=== PATIENT | female | born 1960 | race Caucasian/White ===

== ENCOUNTER → 2017-02-10 | Outpatient (CLI) | payer OTHER ==
--- NOTE | 2017-02-10 13:52 | MM ---
Reason for exam: additional evaluation requested from prior study. Last mammogram was performed 1 year ago. History: Patient is postmenopausal. Family history of breast cancer in sister at age 52. Benign US biopsy breast VAD RT of the right breast, February 19, 2016. Benign excisional biopsy of the right breast, 2015. Taking estrogen for 27 years beginning at age 30. Physical Findings: Nurse did not find any significant physical abnormalities on exam. MG Diagnostic Mammo w CAD RUDY Bilateral CC and MLO view(s) were taken. ML and XCCL view(s) were taken of the right breast. Prior study comparison: February 19, 2016, right breast MG diagnostic mammo RT wo CAD. February 07, 2016, left breast MG work up mamm w CAD LT. The breast tissue is heterogeneously dense. This may lower the sensitivity of mammography. Finding: There are typically benign round calcifications in the left breast. Asymmetric breast tissue is stable. There is no discrete abnormality. These results were verbally communicated with the patient and result sheet given to the patient on 02/10/17. ASSESSMENT: Benign, BI-RAD 2 RECOMMENDATION: Routine screening mammogram of both breasts in 1 year.
== END | disposition home or self-care (01) ==
LOC: RADMAMWWP 12:35
PROVIDERS: ATTEND Family Medicine
DX: R92.8 Other abnormal and inconclusive findings on diagnostic imaging of breast (principal)

== ENCOUNTER 2018-02-12 16:33 | Inpatient (IN) | payer OTHER ==
[2018-02-12] MEDS ORDERED: SODIUM CHLORIDE 0.9% 1,000 ML IV STA (17:06)
[2018-02-12] MEDS ORDERED: MORPHINE SULFATE 4 MG/ML SYRINGE IV STA (17:06)
[2018-02-12] MEDS ORDERED: ONDANSETRON 4 MG/2 ML VIAL IVP STA (17:06)
--- NOTE | 2018-02-12 17:24 | ED ---
Abdominal Pain HPI - General Chief Complaint: Abdominal Pain Stated Complaint: abd pain Time Seen by Provider: 02/12/18 16:57 Source: patient, family Mode of arrival: ambulatory Limitations: no limitations - History of Present Illness Initial Comments: 58-year-old female patient with past medical history significant for pancreatitis presents the emergency department today for complaints of generalized abdominal pain that radiates through to her back. Patient states that pain feels similar to when she's had pancreatitis before. Patient states she has been nauseated but has not vomited. Denies any fevers but states she has been chilled. States that she has been having diarrhea. States that she has had pain for the last 2-3 days. She describes the pain as a sharp stabbing pain. States that she has had decreased appetite and has been unable to eat or drink for the last 2-3 days as well. Patient denies any recent rash, shortness breath, chest pain, numbness, tingling, dizziness, weakness, hematuria, dysuria , urinary urgency, urinary frequency, headache, visual changes, or any other complaints. - Related Data Home Medications Medication Instructions Recorded Confirmed Estradiol [Estrace] 2 mg PO DAILY 01/03/14 02/12/18 Montelukast [Singulair] 10 mg PO HS 04/24/16 02/12/18 HYDROcodone/APAP 7.5-325MG [[place] 1 tab PO Q6HR PRN 02/12/18 02/12/18 7.5] Lisinopril [Zestril] 20 mg PO DAILY 02/12/18 02/12/18 Allergies Allergy/AdvReac Type Severity Reaction Status Date / Time amoxicillin trihydrate Allergy Nausea & Verified 02/12/18 20:38 [From Augmentin] Vomiting hydromorphone HCl Allergy Nausea & Verified 02/12/18 20:38 [From Dilaudid] Vomiting meperidine HCl [From Demerol] Allergy Nausea & Verified 02/12/18 20:38 Vomiting potassium clavulanate Allergy Nausea & Verified 02/12/18 20:38 [From Augmentin] Vomiting sulfamethoxazole Allergy Nausea & Verified 02/12/18 20:38 [From Bactrim] Vomiting trimethoprim [From Bactrim] Allergy Nausea & Verified 02/12/18 20:38 Vomiting Review of Systems ROS Statement: Those systems with pertinent positive or pertinent negative responses have been documented in the HPI. ROS Other: All systems not noted in ROS Statement are negative. Past Medical History Past Medical History: COPD, Pneumonia Additional Past Medical History / Comment(s): pancreatitis November 2013, History of Any Multi-Drug Resistant Organisms: None Reported Past Surgical History: Cholecystectomy, Hysterectomy Additional Past Surgical History / Comment(s): splenectomy Mar 1983. Reconstruction face, mouth, teeth Mar 1983. Knee Past Anesthesia/Blood Transfusion Reactions: Postoperative Nausea & Vomiting ( PONV) Additional Past Anesthesia/Blood Transfusion Reaction / Comment(s): Pt states it depends on what medications were used, varied reactions. Past Psychological History: Anxiety Smoking Status: Current every day smoker Past Alcohol Use History: Occasional Past Drug Use History: None Reported - Past Family History Mother Family Medical History: AFIB, Cancer Additional Family Medical History / Comment(s): spondylo General Exam Limitations: no limitations General appearance: alert, in no apparent distress, other (This is a thin appearing adult female patient in mild distress related to pain. Vital signs upon presentation are temperature 98.4F, pulse 97, respirations 18, blood pressure 148/95, pulse ox 97% on room air.) Eye exam: Present: normal appearance, PERRL, EOMI. Absent: scleral icterus, conjunctival injection, periorbital swelling ENT exam: Present: normal exam, normal oropharynx, mucous membranes moist Respiratory exam: Present: normal lung sounds bilaterally. Absent: respiratory distress, wheezes, rales, rhonchi, stridor Cardiovascular Exam: Present: regular rate, normal rhythm, normal heart sounds. Absent: systolic murmur, diastolic murmur, rubs, gallop, clicks GI/Abdominal exam: Present: soft, tenderness (Exquisite tenderness to the midepigastric region; Generalized abdominal tenderness.), normal bowel sounds. Absent: distended, guarding, rebound, rigid Neurological exam: Present: alert, oriented X3, CN II-XII intact Psychiatric exam: Present: normal affect, normal mood Skin exam: Present: warm, dry, intact, normal color. Absent: rash Course Vital Signs 02/12/18 02/12/18 16:42 19:52 Temperature 98.4 F 98.2 F Pulse Rate 97 95 Respiratory 18 18 Rate Blood Pressure 148/95 139/77 O2 Sat by Pulse 97 97 Oximetry Medical Decision Making - Medical Decision Making 58-year-old female patient presented to the emergency department for evaluation of increased abdominal pain and nausea. Physical examination did reveal upper abdominal tenderness. Labs reviewed and did reveal an elevated amylase of 268 and lipase of 1163. Other labs are unremarkable. Patient was given IV fluid bolus. She'll be admitted to the hospital pain management and IV hydration. We did consult gastroenterology and ordered ultrasound of the abdomen. Did discuss the case with Priscilla Mccloud for Dr. Caceres. - Lab Data Result diagrams: 02/12/18 17:22 02/12/18 17:22 Lab Results 02/12/18 02/12/18 02/12/18 Range/Units 17:22 17:22 17:22 WBC 10.5 (3.8-10.6) k/uL RBC 4.21 (3.80-5.40) m/uL Hgb 14.2 (11.4-16.0) gm/dL Hct 42.4 (34.0-46.0) % MCV 100.8 H (80.0-100.0) fL MCH 33.8 (25.0-35.0) pg MCHC 33.6 (31.0-37.0) g/dL RDW 12.7 (11.5-15.5) % Plt Count 320 (150-450) k/uL Neutrophils % 76 % Lymphocytes % 16 % Monocytes % 5 % Eosinophils % 1 % Basophils % 0 % Neutrophils # 8.0 H (1.3-7.7) k/uL Lymphocytes # 1.7 (1.0-4.8) k/uL Monocytes # 0.5 (0-1.0) k/uL Eosinophils # 0.1 (0-0.7) k/uL Basophils # 0.0 (0-0.2) k/uL Sodium 130 L (137-145) mmol/L Potassium 5.2 H (3.5-5.1) mmol/L Chloride 99 (98-107) mmol/L Carbon Dioxide 24 (22-30) mmol/L Anion Gap 7 mmol/L BUN 8 (7-17) mg/dL Creatinine 0.50 L (0.52-1.04) mg/dL Est GFR (CKD-EPI)AfAm >90 (>60 ml/min/1.73 sqM) Est GFR (CKD-EPI)NonAf >90 (>60 ml/min/1.73 sqM) Glucose 94 (74-99) mg/dL Plasma Lactic Acid Pantera (0.7-2.0) mmol/L Calcium 8.7 (8.4-10.2) mg/dL Total Bilirubin 1.1 (0.2-1.3) mg/dL AST 38 H (14-36) U/L ALT 26 (9-52) U/L Alkaline Phosphatase 49 (38-126) U/L Total Creatine Kinase 85 (30-135) U/L CK-MB (CK-2) 1.5 (0.0-2.4) ng/mL CK-MB (CK-2) Rel Index 1.8 Troponin I <0.012 (0.000-0.034) ng/mL Total Protein 6.3 (6.3-8.2) g/dL Albumin 3.8 (3.5-5.0) g/dL Amylase 268 H (30-110) U/L Lipase 1163 H (23-300) U/L Urine Color Urine Appearance (Clear) Urine pH (5.0-8.0) Ur Specific [place] (1.001-1.035) Urine Protein (Negative) Urine Glucose (UA) (Negative) Urine Ketones (Negative) Urine Blood (Negative) Urine Nitrite (Negative) Urine Bilirubin (Negative) Urine Urobilinogen (<2.0) mg/dL Ur Leukocyte Esterase (Negative) Urine RBC (0-5) /hpf Urine WBC (0-5) /hpf Ur Squamous Epith Cells (0-4) /hpf Urine Mucus (None) /hpf 02/12/18 02/12/18 Range/Units 17:22 17:22 WBC (3.8-10.6) k/uL RBC (3.80-5.40) m/uL Hgb (11.4-16.0) gm/dL Hct (34.0-46.0) % MCV (80.0-100.0) fL MCH (25.0-35.0) pg MCHC (31.0-37.0) g/dL RDW (11.5-15.5) % Plt Count (150-450) k/uL Neutrophils % % Lymphocytes % % Monocytes % % Eosinophils % % Basophils % % Neutrophils # (1.3-7.7) k/uL Lymphocytes # (1.0-4.8) k/uL Monocytes # (0-1.0) k/uL Eosinophils # (0-0.7) k/uL Basophils # (0-0.2) k/uL Sodium (137-145) mmol/L Potassium (3.5-5.1) mmol/L Chloride (98-107) mmol/L Carbon Dioxide (22-30) mmol/L Anion Gap mmol/L BUN (7-17) mg/dL Creatinine (0.52-1.04) mg/dL Est GFR (CKD-EPI)AfAm (>60 ml/min/1.73 sqM) Est GFR (CKD-EPI)NonAf (>60 ml/min/1.73 sqM) Glucose (74-99) mg/dL Plasma Lactic Acid Pantera 1.1 (0.7-2.0) mmol/L Calcium (8.4-10.2) mg/dL Total Bilirubin (0.2-1.3) mg/dL AST (14-36) U/L ALT (9-52) U/L Alkaline Phosphatase (38-126) U/L Total Creatine Kinase (30-135) U/L CK-MB (CK-2) (0.0-2.4) ng/mL CK-MB (CK-2) Rel Index Troponin I (0.000-0.034) ng/mL Total Protein (6.3-8.2) g/dL Albumin (3.5-5.0) g/dL Amylase (30-110) U/L Lipase (23-300) U/L Urine Color Yellow Urine Appearance Cloudy H (Clear) Urine pH 5.5 (5.0-8.0) Ur Specific [place] 1.021 (1.001-1.035) Urine Protein Trace H (Negative) Urine Glucose (UA) Negative (Negative) Urine Ketones 2+ H (Negative) Urine Blood Moderate H (Negative) Urine Nitrite Negative (Negative) Urine Bilirubin Negative (Negative) Urine Urobilinogen <2.0 (<2.0) mg/dL Ur Leukocyte Esterase Negative (Negative) Urine RBC 5 (0-5) /hpf Urine WBC 1 (0-5) /hpf Ur Squamous Epith Cells 7 H (0-4) /hpf Urine Mucus Rare H (None) /hpf - EKG Data -: EKG Interpreted by [place] EKG Comments: EKG obtained at 1733 shows sinus rhythm with sinus arrhythmia and a short KS interval. Ventricular rate of 61, KS interval is 102, QRS duration 86, QT 422, QTc 424. No evidence of ST elevation or depression. - Radiology Data Radiology results: report reviewed, image reviewed KUB x-ray of the abdomen is obtained, report was reviewed in its entirety. Impression by Dr. Hinojosa shows nonacute abdomen no change. Abdominal ultrasound was obtained. Report was reviewed in its entirety. Impression by Dr. Hinojosa shows cholecystectomy no dilated ducts. Report as read that there is an abnormally dilated pancreatic duct of 4.3 mm. Disposition Clinical Impression: Pancreatitis Disposition: ADMITTED IP TO THIS [facility] Condition: Serious Decision to Admit Reason: Admit from EC Decision Date: 02/12/18 Decision Time: 19:28
[2018-02-12 17:44] LABS: Basophils % (A) 0 %; Eosinophils # (A) 0.1 k/uL (0-0.7); Eosinophils % (A) 1 %; HCT 42.4 % (34.0-46.0); HGB 14.2 gm/dL (11.4-16.0); Lymphocytes # (A) 1.7 k/uL (1.0-4.8); Lymphocytes % (A) 16 %; MCH 33.8 pg (25.0-35.0); MCHC 33.6 g/dL (31.0-37.0); MCV 100.8 fL (80.0-100.0); Monocytes # (A) 0.5 k/uL (0-1.0); Monocytes % (A) 5 %; Neutrophils % (A) 76 %; Platelet Count 320 k/uL (150-450); RBC 4.21 m/uL (3.80-5.40); RDW 12.7 % (11.5-15.5); WBC 10.5 k/uL (3.8-10.6)
[2018-02-12 17:48] LABS: Appearance,Urine Cloudy (Clear); Bilirubin,Urine Negative (Negative); Blood,Urine Moderate (Negative); Color,Urine Yellow; Glucose,Urine (UA) Negative (Negative); Ketones,Urine 2+ (Negative); Leukocyte Esterase,Urine Negative (Negative); Mucus,Urine Rare /hpf; Nitrite,Urine Negative (Negative); PH, Urine 5.5 (5.0-8.0); Protein,Urine Trace (Negative); RBC,Urine 5 /hpf (0-5); Specific Gravity,Urine 1.021 (1.001-1.035); Squamous Epithelial Cell,Urine 7 /hpf (0-4); Urobilinogen,Urine <2.0 mg/dL (<2.0); WBC,Urine 1 /hpf (0-5)
[2018-02-12 17:57] LABS: ALT 26 U/L (9-52); AST 38 U/L (14-36); Albumin 3.8 g/dL (3.5-5.0); Alkaline Phosphatase 49 U/L (38-126); Amylase 268 U/L (30-110); Anion Gap 7 mmol/L; Blood Urea Nitrogen 8 mg/dL (7-17); Calcium 8.7 mg/dL (8.4-10.2); Carbon Dioxide 24 mmol/L (22-30); Chloride 99 mmol/L (98-107); Glucose 94 mg/dL (74-99); Lipase 1163 U/L (23-300); Potassium 5.2 mmol/L (3.5-5.1); Sodium 130 mmol/L (137-145); Total Bilirubin 1.1 mg/dL (0.2-1.3); Total Protein 6.3 g/dL (6.3-8.2)
[2018-02-12 18:07] LABS: Creatine Kinase 85 U/L (30-135)
--- NOTE | 2018-02-12 18:12 | XR ---
EXAMINATION TYPE: XR KUB DATE OF EXAM: 02/12/2018 COMPARISON: 01/03/2014 HISTORY: Abdominal pain TECHNIQUE: Single view FINDINGS: There is no sign of intestinal obstruction or pneumoperitoneum. There are clips from cholec ystectomy. Lung bases are clear. Fecal pattern is normal. There are no pathologic calcifications over the kidneys. IMPRESSION: Nonacute abdomen. No change.
[2018-02-12] MEDS ORDERED: MORPHINE SULFATE 4 MG/ML SYRINGE IVP STA (18:19)
[2018-02-12 18:20] LABS: Creatine Kinase MB 1.5 ng/mL (0.0-2.4); Troponin I <0.012 ng/mL (0.000-0.034)
[2018-02-12] MEDS ORDERED: NALOXONE 0.4 MG/ML 1 ML VIAL IV PRN (19:22)
[2018-02-12] MEDS ORDERED: MORPHINE SULFATE 4 MG/ML SYRINGE IV PRN (19:22)
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
[2018-02-12 20:37] VITALS: BMI 12.9
[2018-02-12] MEDS: SODIUM CHLORIDE 0.9% 1,000 ML IV SCH (21:28)
[2018-02-12] MEDS ORDERED: ALPRAZolam 0.25 MG TAB PO PRN (22:30)
[2018-02-12] MEDS ORDERED: TEMAZEPAM 15 MG CAP PO PRN (22:30)
[2018-02-12] MEDS ORDERED: LORazepam 0.5 MG TAB PO PRN (22:31)
[2018-02-12] MEDS: HYDROcodone/APAP 7.5-325MG 1 EACH TAB PO PRN (23:06)
[2018-02-12] MEDS: PANTOPRAZOLE 40 MG/10 ML VIAL IVP SCH (23:06)
--- NOTE | 2018-02-12 23:48 | HP ---
HISTORY AND PHYSICAL DATE OF SERVICE: 02/12/2018 I am covering for Dr. Degroot. CHIEF COMPLAINT: Abdominal pain. HISTORY OF PRESENT ILLNESS: This 58-year-old woman with a past medical history of multiple medical problems, including COPD, hypertension, pneumonia, history of pancreatitis, cholecystectomy, anxiety, previous history EtOH and smoking, being followed by Dr. Degroot in the outpatient setting, is complaining of abdominal pain for the last several weeks. The abdominal pain is felt in the anterior part of the abdomen and also the circumference and the upper part of the abdomen and because of lack of improvement, the patient came to [facility] and was admitted for further evaluation and treatment. The patient has some nausea. The patient also had loss of weight which most recently is about 10 pounds in the last few weeks. The pain is also sharp in character. The lab values showed amylase of 260 and lipase of 1163 and abdominal ultrasound was also done which showed cholecystectomy and no other abnormalities. During the previous admission, the patient was also evaluated. There is no history of fever, rigors. No history of headache, loss of consciousness, seizures. PAST MEDICAL HISTORY: History of COPD, hypertension, pneumonia, history of pancreatitis, history of cholecystectomy, hysterectomy, splenectomy. MEDICATIONS PRIOR TO ADMISSION: Include home medications are: 1. Zestril 20 mg p.o. daily. 2. Hydrocodone 7 5 mg every 6 hours p.r.n. 3. Estrace 2 mg p.o. daily. 4. Singular 10 mg q.h.s. ALLERGIES: Are AMOXICILLIN, HYDROMORPHONE, POTASSIUM, BACTRIM. FAMILY HISTORY: History of A. fib., cancer, spondylosis. SOCIAL HISTORY: History of alcohol, history of smoking. REVIEW OF SYSTEMS: ENT: No diminished hearing, diminished vision. CARDIOVASCULAR: No angina, palpitations. RESPIRATORY: As mentioned earlier. GI: No nausea or vomiting. : No dysuria. NERVOUS: No numbness or weakness. ALLERGY/IMMUNOLOGY: No asthma or hay fever. MUSCULOSKELETAL: As mentioned earlier. HEMATOLOGY/ONCOLOGY: No history of anemia. ENDOCRINE: No history of diabetes, hypothyroidism. CONSTITUTIONAL: As mentioned earlier. DERMATOLOGY: Negative. RHEUMATOLOGY: Negative. PSYCHIATRY: As mentioned earlier. PHYSICAL EXAMINATION: Alert and oriented x3. Pulse is 95, blood pressure 139/77, respirations 18, temperature 98.2, pulse ox 97% on room air. HEENT: Conjunctivae normal. Oral mucosa moist. NECK: No jugular venous distention. No carotid bruits. No lymph node enlargement. CARDIOVASCULAR: S1, S2 muffled. No S3, S4.. RESPIRATORY: Breath sounds diminished in the bases. A few scattered rhonchi. No crackles. ABDOMEN: Soft, mild diffuse tenderness, scaphoid. No guarding. No rigidity. No mass palpable. LEGS: No edema. No swelling. NERVOUS SYSTEM: Higher functions as mentioned earlier. Moves all 4 limbs. No focal motor or sensory deficits. LYMPHATIC: No lymphadenopathy in neck or axillae. SKIN: No ulcer, rash or bleeding. JOINTS: No active deforming arthropathy. LABS: WBC 10.2, hemoglobin is 14.1. Sodium 130, potassium 5.2. Amylase, noted. ASSESSMENT: 1. Acute severe pancreatitis, severe abdominal pain. 2. History of recurrent pancreatitis. 3. History nicotine dependence. 4. Mild hyponatremia. 5. Mild hyperkalemia. 6. History of weight loss for evaluation. 7. Chronic obstructive pulmonary disease. 8. Hypertension. 9. History of pneumonia. 10.History of hysterectomy. 11.History of cholecystectomy. 12.History of anxiety. RECOMMENDATIONS AND DISCUSSION: In this is a 58-year-old woman who presented with multiple complex medical issues, we will monitor the patient closely. Continue the current medical management and continue symptomatic treatment. Otherwise, keep the patient n.p.o. Repeat labs, pain medications and Gastroenterology has been consulted. I would also recommend a CT scan of the abdomen pelvis and chest also to evaluate for any underlying cause of weight loss as well as to evaluate the pancreatitis. The prognosis guarded because of multiple complex medical issues. Further recommendations to follow. MMODL / IJN: [id number] / [facility]
[2018-02-13] MEDS: MORPHINE SULFATE 4 MG/ML SYRINGE IV PRN ×7 (00:37→21:03)
[2018-02-13] MEDS: SODIUM CHLORIDE 0.9% 1,000 ML IV SCH ×3 (04:05→18:02)
[2018-02-13] MEDS: HYDROcodone/APAP 7.5-325MG 1 EACH TAB PO PRN ×3 (06:11→22:17)
[2018-02-13 06:41] LABS: ALT 57 U/L (9-52); AST 106 U/L (14-36); Albumin 2.5 g/dL (3.5-5.0); Alkaline Phosphatase 65 U/L (38-126); Amylase 198 U/L (30-110); Anion Gap 1 mmol/L; Basophils % (A) 0 %; Blood Urea Nitrogen 6 mg/dL (7-17); Calcium 7.6 mg/dL (8.4-10.2); Carbon Dioxide 24 mmol/L (22-30); Chloride 108 mmol/L (98-107); Eosinophils # (A) 0.1 k/uL (0-0.7); Eosinophils % (A) 1 %; Glucose 73 mg/dL (74-99); HCT 37.3 % (34.0-46.0); HGB 11.9 gm/dL (11.4-16.0); Lipase 659 U/L (23-300); Lymphocytes # (A) 1.2 k/uL (1.0-4.8); Lymphocytes % (A) 11 %; MCH 33.5 pg (25.0-35.0); MCV 104.8 fL (80.0-100.0); Macrocytosis Slight; Mean Platelet Volume 6.7; Monocytes # (A) 0.5 k/uL (0-1.0); Monocytes % (A) 4 %; Neutrophils # (A) 8.9 k/uL (1.3-7.7); Neutrophils % (A) 83 %; Platelet Count 273 k/uL (150-450); Potassium 4.1 mmol/L (3.5-5.1); RBC 3.56 m/uL (3.80-5.40); Sodium 133 mmol/L (137-145); Total Bilirubin 0.4 mg/dL (0.2-1.3); Total Protein 4.4 g/dL (6.3-8.2); WBC 10.8 k/uL (3.8-10.6)
[2018-02-13] MEDS: IOPAMIDOL-300 CONTRAST 30 ML VIAL (ORAL USE) PO PRN ×2 (08:01→09:06)
[2018-02-13] MEDS: ONDANSETRON 4 MG/2 ML VIAL IVP PRN ×2 (08:50→21:08)
[2018-02-13] MEDS: PANTOPRAZOLE 40 MG/10 ML VIAL IVP SCH ×2 (10:06→20:40)
--- NOTE | 2018-02-13 10:57 | CT ---
EXAMINATION TYPE: CT ChestAbdPelvis wo con DATE OF EXAM: 02/13/2018 COMPARISON: Previous CT scan of the chest dated 09/20/[address] scan of the abdomen and p zana dated 01/03/2014. HISTORY: Pancreatitis, wt loss CT DLP: 193 mGycm Automated exposure control for dose reduction was used. TECHNIQUE: Helical acquisition through the abdomen and pelvis was obtained without oral contrast but following the intravenous administration of mL of . The data was formatted in the axial, coronal and sagittal projections. FINDINGS: There are diffuse emphysematous changes. A 6 mm groundglass nodule seen on the previous exa mination now measures 2.2 cm. Spiculated opacity in the left apex previously measured 2.1 cm and toda y measures 2.9 cm. There is a 6 mm groundglass nodule in the lateral aspect of the right middle lobe, best seen on image 29. There is a 2 mm nodule in the posterior basal segment of the right lower lobe , best seen on image 48 no other definite lung nodules are seen. There is no significant axillary, internal mammary or hilar adenopathy. There is an 8 mm lymph node i n the pretracheal region. There is no pleural or pericardial fluid. The heart is not enlarged. Within the abdomen, the gallbladder is been removed. The liver is unremarkable. The spleen is unremar kable. Limited views the adrenal glands appear normal. There is no evidence of hydronephrosis or nephrolithiasis. The head and proximal body of the pancreas is not well-visualized due to a paucity of retroperitoneal fat. The tail appears normal. The bladder is unremarkable. The uterus is unremarkable. The ovaries are not visualized with certainty. There is some contrast within normal-appearing small bowel loops. The colon is not opacified. The ximena endix is not visualized. No free air is seen. No definite free fluid is seen. No bony destructive lesion is seen. IMPRESSION: 1. MULTIPLE ENLARGING AND NEW PULMONARY NODULES CONSISTENT WITH NEOPLASM. 2. LIMITED EXAMINATION OF THE ABDOMEN DUE TO LACK OF CONTRAST AT A PAUCITY OF FAT. THE HEAD OF THE PA NCREAS IS POORLY VISUALIZED.
[2018-02-13] MEDS: NICOTINE 14MG/24HR PATCH TRANSDERM SCH (11:05)
[2018-02-13] MEDS: LISINOPRIL 20 MG TAB PO SCH (11:06)
[2018-02-13] MEDS: HEPARIN SODIUM,PORCINE 5,000 UNIT/ML 1 ML VIAL SQ SCH ×2 (11:09→20:40)
--- NOTE | 2018-02-13 12:47 | XR ---
EXAMINATION TYPE: XR chest 1V portable DATE OF EXAM: 02/13/2018 HISTORY: nodules. REFERENCE: Previous study dated 01/05/2014. FINDINGS: The lungs are overinflated. There is a mass in the right upper lobe. Another nodule seen on CT cannot be visualized on this study. Pleural space are clear. Heart size is upper limits of normal . IMPRESSION: 1. COPD. 2. RIGHT UPPER LOBE PULMONARY NODULE.
--- NOTE | 2018-02-13 15:49 | PN ---
PROGRESS NOTE DATE OF SERVICE: 02/13/2018 I am covering for Dr. Degroot. This 58-year-old woman with a past medical history of multiple medical problems, admitted with abdominal pain suggestive of acute severe pancreatitis. The patient also had multiple nodular lesions in the chest on the CT scan. No chest pain. No palpitations. No fever. Complains of pain at this time. PHYSICAL EXAMINATION: On exam, alert and oriented x3. Pulse 59, blood pressure 114/49, respirations 20 , temperature 97 degrees, pulse ox 95% on room air. HEENT: Conjunctivae normal. Oral mucosa moist. Neck is no jugular venous distention. No carotid bruit. No lymph node enlargement. CARDIOVASCULAR: S1 and S2 muffled. No S3, no S4. RESPIRATORY: Breath sounds diminished at the bases. A few scattered rhonchi. ABDOMEN: Soft, mild diffuse tenderness. LEGS: No edema. No swelling. NERVOUS SYSTEM: No focal deficits. LABS: Labs are WBC 10.8, hemoglobin 11.9, sodium 133, potassium 4. Creatinine 0.49 and amylase is 198 and lipase is 659 showing diminishing trends. ASSESSMENT: 1. Acute severe pancreatitis with severe abdominal pain. 2. Multiple lung nodules on the CAT scan of the chest. 3. History of recurrent pancreatitis. 4. History of nicotine dependence. 5. Mild hyponatremia. 6. Mild hyperkalemia. 7. History of recent weight loss for evaluation. 8. Chronic obstructive pulmonary disease. 9. Hypertension. 10.History of pneumonia. 11.History of hysterectomy. 12.History of cholecystectomy. 13.History of anxiety. 14.Severe protein calorie malnutrition. RECOMMENDATIONS AND DISCUSSION: This 58-year-old woman who presented with multiple complex medical issues. Will monitor the patient closely. Continue the current medications and symptomatic treatment. The patient is seen by Gastroenterology. I would recommend Pulmonary consultation with Dr. Kenryo Stephens. diet. Continue symptomatic treatment. Prognosis guarded because of multiple complex medical issues. Further recommendations to follow. MMODL / IJN: [id number] / [facility]
[2018-02-13] MEDS: MONTELUKAST 10 MG TAB PO SCH (20:41)
[2018-02-14] MEDS: MORPHINE SULFATE 4 MG/ML SYRINGE IV PRN ×4 (01:32→21:53)
[2018-02-14] MEDS: SODIUM CHLORIDE 0.9% 1,000 ML IV SCH ×3 (01:40→19:58)
[2018-02-14] MEDS: HYDROcodone/APAP 7.5-325MG 1 EACH TAB PO PRN ×3 (05:08→18:49)
[2018-02-14] MEDS: PANTOPRAZOLE 40 MG/10 ML VIAL IVP SCH ×2 (08:58→21:53)
[2018-02-14] MEDS: NICOTINE 14MG/24HR PATCH TRANSDERM SCH (09:02)
[2018-02-14] MEDS: HEPARIN SODIUM,PORCINE 5,000 UNIT/ML 1 ML VIAL SQ SCH ×2 (09:50→21:53)
[2018-02-14] MEDS: LISINOPRIL 20 MG TAB PO SCH (09:51)
--- NOTE | 2018-02-14 16:08 | PN ---
PROGRESS NOTE DATE OF SERVICE: 02/14/2018. INTERVAL HISTORY: This 58-year-old woman was admitted with acute severe pancreatitis. Abdominal pain is improving significantly. No chest pain. No palpitations. No fever. A CT scan of the abdomen and pelvis was noted. The nodular changes are rather chronic per pulmonary. No chest pain. No palpitations. No fever. EXAM: Alert, oriented x3. Pulse 60, blood pressure 105/58, respirations 16, temperature 97 degrees, pulse ox 100% on room air. HEENT: Conjunctivae normal. NECK: No jugular venous distention. CARDIOVASCULAR: S1, S2. RESPIRATORY: Breath sounds diminished in the bases. No rhonchi, no crackles. ABDOMEN: Soft, mild diffuse discomfort. Otherwise no tenderness, no guarding, no mass palpable. LEGS: No edema. NERVOUS SYSTEM: No focal deficits. LAB STUDIES: WBC 11.1, hemoglobin 11.9, sodium 130, potassium 4.9. Amylase 198, lipase 659. ASSESSMENT: 1. Acute severe pancreatitis with severe abdominal pain. 2. Multiple lung nodules in the CT scan chest. 3. History of recurrent pancreatitis. 4. History of nicotine dependence. 5. Mild hyponatremia. 6. Mild hyperkalemia. 7. History of recent weight loss for evaluation. 8. Chronic obstructive pulmonary disease. 9. Hypertension. 10.History of pneumonia. 11.History of hysterectomy. 12.History of cholecystectomy. 13.History of anxiety. 14.Severe protein calorie malnutrition. RECOMMENDATIONS AND DISCUSSION: I recommend to continue current medication and continue with symptomatic treatment. Otherwise at this time I recommend advance diet. Closely follow with Gastroenterology and Pulmonary. Continue to monitor. Prognosis guarded because of multiple complex medical issues. Further recommendations to follow. See orders for details. MMODL / IJN: [id number] /
--- NOTE | 2018-02-14 19:29 | CONS ---
CONSULTATION Rozina Alcantara is a 58-year-old female who presented to the ED with abdominal pain. This has been associated with some nausea but no vomiting. She also had been having some diarrhea. She was seen in the ED and thought to have pancreatitis and was admitted for further evaluation. She had a CT scan of the chest, which showed evidence of lung nodules and a pulmonary consultation was placed. The patient denies any shortness of breath at this time. She denies any hemoptysis or recent weight loss. PAST MEDICAL HISTORY: Positive for pancreatitis, COPD, previous pneumonia, history of hysterectomy, splenectomy in 1982, history of reconstruction of her face, mouth and teeth in March of 1983, history of lung nodules seen in 2012, which had not changed by 2014. Subsequently, CT scan had been pending. FAMILY HISTORY: Positive for atrial fibrillation and cancer in her mother. SOCIAL HISTORY: The patient drinks alcohol occasionally. Has not been drinking recently. She is a current every day smoker. ALLERGIC: To DILAUDID, AUGMENTIN, MEPERIDINE, AND BACTRIM. MEDICATIONS: Prior to admission were Xanax, Estrace, heparin, Fleischmanns, Zestril, Ativan, Singulair, morphine sulfate, Narcan, Habitrol, Zofran, Protonix, and Restoril. REVIEW OF SYSTEMS: Noncontributory. PHYSICAL EXAMINATION: Respiratory rate is 16, pulse rate of 60, temperature 97, blood pressure 106/80 over 63, O2 saturation on room air is 98%. HEENT reveals pupils that are equal. No jugular venous distention. Chest is clear. Cardiovascular system reveals S1, S2. Abdomen is soft. There is no pedal edema. CT scan of the chest, abdomen and pelvis was done. CT scan of the chest showed diffuse emphysematous changes, 6 mm nodule seen previously in the right apex has grown to 2.2 cm, spiculated opacity in the left apex has gotten 2.1 to 2.9, 6 mm nodule in the lateral aspect of the right middle lobe is seen and a 2 mm nodule in the posterior basal segment of the right lower lobe. No significant adenopathy except for an 8 mm lymph node in the pretracheal area. LABS: Reveals white count of 10.8, hemoglobin of 11.9, sodium 133, potassium 4.1, chloride 108, bicarb 24, amylase of 1163, lipase of 268. IMPRESSION: At this time: 1. Acute pancreatitis. 2. Multiple lung nodules that are bilateral that were previously seen at least in 2013 with enlargement over 5 years, but not over the initial 2 years. The etiology of these nodules is unclear. Given her history of smoking and emphysema would check an outpatient PET scan and decide on further workup. She is due to get a PFT as well to further decide if she is a candidate for further workup. 3. Acute pancreatitis for which she is on bowel rest. 4. Chronic obstructive pulmonary disease, which is stable. At this point in time from a pulmonary standpoint, she would need close outpatient followup with a PET scan. Depending on how she does we should make further changes to her care. She was counseled regarding her condition and this approach and has a fair understanding of our recommendations. MMODL / IJN: [id number] /
--- NOTE | 2018-02-14 21:24 | P.CONS ---
History of Present Illness - Reason for Consult Consult date: 02/13/18 Pancreatitis - History of Present Illness The patient is a 58-year-old female patient with past medical history significant for pancreatitis, presented to the emergency department for complaints of generalized abdominal pain that radiates through to her back of 2- 3 days duration. Patient stated that pain feels similar to when she's had pancreatitis before. She has been nauseated but had no vomiting. Denied any fevers but states she has been chilled. States that she has been having diarrhea. She has had decreased appetite and has been unable to eat or drink for the last 2-3 days as well. Patient denies any recent rash, shortness breath , chest pain, numbness, tingling, dizziness, weakness, hematuria, dysuria, urinary urgency, urinary frequency, headache, visual changes, or any other complaints. Review of Systems Constitutional: Denied fever, chills or unintentional weight loss Neurologic: No headaches, double vision or other sensory or motor changes Cardiopulmonary: No chest pains, shortness of breath or palpitations Gastrointestinal: See present illness above Genitourinary: No hematuria, dysuria or frequency Musculoskeletal: No joint complaints or swelling Skin: No rashes Endocrine: No history of diabetes or thyroid disease Hematologic: No history of anemia or bleeding tendency Psychiatric: No anxiety or depression Past Medical History Past Medical History: COPD, Pneumonia Additional Past Medical History / Comment(s): pancreatitis November 2013, History of Any Multi-Drug Resistant Organisms: None Reported Past Surgical History: Cholecystectomy, Hysterectomy Additional Past Surgical History / Comment(s): splenectomy Mar 1983. Reconstruction face, mouth, teeth Mar 1983. Knee Past Anesthesia/Blood Transfusion Reactions: Postoperative Nausea & Vomiting ( PONV) Additional Past Anesthesia/Blood Transfusion Reaction / Comm: Pt states it depends on what medications were used, varied reactions. Past Psychological History: Anxiety Smoking Status: Current every day smoker Past Alcohol Use History: Occasional Past Drug Use History: None Reported - Past Family History Mother Family Medical History: AFIB, Cancer Additional Family Medical History / Comment(s): spondylo Medications and Allergies Home Medications Medication Instructions Recorded Confirmed Type Estradiol [Estrace] 2 mg PO DAILY 01/03/14 02/12/18 History Montelukast [Singulair] 10 mg PO HS 04/24/16 02/12/18 History HYDROcodone/APAP 7.5-325MG [[place] 1 tab PO Q6HR PRN 02/12/18 02/12/18 History 7.5] Lisinopril [Zestril] 20 mg PO DAILY 02/12/18 02/12/18 History Allergies Allergy/AdvReac Type Severity Reaction Status Date / Time amoxicillin trihydrate Allergy Nausea & Verified 02/12/18 20:38 [From Augmentin] Vomiting hydromorphone HCl Allergy Nausea & Verified 02/12/18 20:38 [From Dilaudid] Vomiting meperidine HCl [From Demerol] Allergy Nausea & Verified 02/12/18 20:38 Vomiting potassium clavulanate Allergy Nausea & Verified 02/12/18 20:38 [From Augmentin] Vomiting sulfamethoxazole Allergy Nausea & Verified 02/12/18 20:38 [From Bactrim] Vomiting trimethoprim [From Bactrim] Allergy Nausea & Verified 02/12/18 20:38 Vomiting Physical Exam Vitals: Vital Signs Temp Pulse Pulse Resp BP BP Pulse Ox 02/13/18 00:35 97.1 F L 74 16 104/60 96 02/12/18 20:13 97.0 F L 63 18 129/73 98 02/12/18 19:52 98.2 F 95 18 139/77 97 02/12/18 16:42 98.4 F 97 18 148/95 97 Intake and Output 02/12/18 02/13/18 02/13/18 22:59 06:59 14:59 Other: # Voids 1 1 Weight 31.2 kg General: Appears stated age, very pleasant in no acute distress Head and neck: Normocephalic and atraumatic, conjunctivae pink and sclerae not icteric, mucous membranes moist and pink, no masses in the neck or tracheal shift Lungs: Clear to auscultation with no dullness to percussion Heart: Regular, no abnormal sounds, murmurs, gallops or friction rubs Abdomen: Soft, no masses or organomegaly. Tenderness in epigastric area, no guarding or rebound. Bowel sounds present Extremities: No clubbing, cyanosis or edema Neurologic: Alert and oriented 3. Cranial nerves grossly intact. No gross sensory or motor abnormalities Results CBC & Chem 7: 02/13/18 06:22 02/13/18 06:22 Labs: Abnormal Lab Results - Last 24 Hours (Table) 08/04/2202/12/18 02/12/18 Range/Units 17:22 17:22 17:22 WBC (3.8-10.6) k/uL RBC (3.80-5.40) m/uL MCV 100.8 H (80.0-100.0) fL Neutrophils # 8.0 H (1.3-7.7) k/uL Sodium 130 L (137-145) mmol/L Potassium 5.2 H (3.5-5.1) mmol/L Chloride (98-107) mmol/L BUN (7-17) mg/dL Creatinine 0.50 L (0.52-1.04) mg/dL Glucose (74-99) mg/dL Calcium (8.4-10.2) mg/dL AST 38 H (14-36) U/L ALT (9-52) U/L Total Protein (6.3-8.2) g/dL Albumin (3.5-5.0) g/dL Amylase 268 H (30-110) U/L Lipase 1163 H (23-300) U/L Urine Appearance Cloudy H (Clear) Urine Protein Trace H (Negative) Urine Ketones 2+ H (Negative) Urine Blood Moderate H (Negative) Ur Squamous Epith Cells 7 H (0-4) /hpf Urine Mucus Rare H (None) /hpf 02/13/18 02/13/18 Range/Units 06:22 06:22 WBC 10.8 H (3.8-10.6) k/uL RBC 3.56 L (3.80-5.40) m/uL MCV 104.8 H (80.0-100.0) fL Neutrophils # 8.9 H (1.3-7.7) k/uL Sodium 133 L (137-145) mmol/L Potassium (3.5-5.1) mmol/L Chloride 108 H (98-107) mmol/L BUN 6 L (7-17) mg/dL Creatinine 0.49 L (0.52-1.04) mg/dL Glucose 73 L (74-99) mg/dL Calcium 7.6 L (8.4-10.2) mg/dL AST 106 H (14-36) U/L ALT 57 H (9-52) U/L Total Protein 4.4 L (6.3-8.2) g/dL Albumin 2.5 L (3.5-5.0) g/dL Amylase 198 H (30-110) U/L Lipase 659 H (23-300) U/L Urine Appearance (Clear) Urine Protein (Negative) Urine Ketones (Negative) Urine Blood (Negative) Ur Squamous Epith Cells (0-4) /hpf Urine Mucus (None) /hpf Assessment and Plan Assessment: Chronic pancreatitis. Plan: Agree with your current management. Will check CT and make additional recommendations based on her findings and course.
[2018-02-14] MEDS: MONTELUKAST 10 MG TAB PO SCH (21:53)
[2018-02-15] MEDS: HYDROcodone/APAP 7.5-325MG 1 EACH TAB PO PRN ×4 (00:50→19:00)
[2018-02-15] MEDS: SODIUM CHLORIDE 0.9% 1,000 ML IV SCH ×3 (04:01→15:58)
[2018-02-15] MEDS: MORPHINE SULFATE 4 MG/ML SYRINGE IV PRN ×4 (04:01→22:06)
--- NOTE | 2018-02-15 08:18 | P.PN ---
Subjective Progress Note Date: 02/15/18 Principal diagnosis: Element of pancreatitis with lung mass. This is a continue present 58-year-old white female with history of COPD who came in with recurrent pancreatitis. Unfortunately, computed tomography scan did show spiculated mass. PET scan will be ordered via pulmonology. Appreciate input from multiple consultants. She's resting comfortably with less pain than admission. Flatus is stated to be passing also. Objective - Vital Signs Vital signs: Vital Signs Temp 98.1 F 02/14/18 23:00 Pulse 68 02/14/18 23:00 Resp 18 02/14/18 23:00 BP 109/69 02/14/18 23:00 Pulse Ox 100 02/14/18 23:00 Intake & Output 02/14/18 02/15/18 02/15/18 18:59 06:59 18:59 Intake Total 970 2900 Output Total 175 300 Balance 795 2600 Intake: Oral 970 2900 Output: Urine 175 300 - Constitutional General appearance: Present: thin - EENT Eyes: Absent: abnormal pupil - Neck Neck: Absent: lymphadenopathy - Respiratory Respiratory: bilateral: diminished - Cardiovascular Rhythm: regular Heart sounds: normal: S1, S2 - Gastrointestinal General gastrointestinal: Present: soft, tenderness Localized gastrointestinal: tender: epigastric periumbilical - Integumentary Integumentary: Absent: cellulitis - Labs CBC & Chem 7: 02/13/18 06:22 02/13/18 06:22 Assessment and Plan (1) Pancreatitis Current Visit: Yes Status: Acute Code(s): K85.90 - ACUTE PANCREATITIS WITHOUT NECROSIS OR INFECTION, UNSP SNOMED Code(s): 27993893 (2) Abdominal pain Current Visit: No Status: Acute Code(s): R10.9 - UNSPECIFIED ABDOMINAL PAIN SNOMED Code(s): 81051548 (3) COPD (chronic obstructive pulmonary disease) Current Visit: No Status: Acute Code(s): J44.9 - CHRONIC OBSTRUCTIVE PULMONARY DISEASE, UNSPECIFIED SNOMED Code(s): 99377130 Plan: I'm hopeful for continued enzymatic decrease of her amylase and lipase. I am concerned about this possible neoplasm in her lung. Continue to follow. Had a long discussion with her regarding possibilities. Check amylase and lipase and CMP today. Time with Patient: Less than 30
[2018-02-15] MEDS: LISINOPRIL 20 MG TAB PO SCH (09:21)
[2018-02-15] MEDS: NICOTINE 14MG/24HR PATCH TRANSDERM SCH (09:21)
[2018-02-15] MEDS: HEPARIN SODIUM,PORCINE 5,000 UNIT/ML 1 ML VIAL SQ SCH ×2 (09:22→21:15)
[2018-02-15] MEDS: PANTOPRAZOLE 40 MG/10 ML VIAL IVP SCH ×2 (09:22→21:15)
[2018-02-15] MEDS: ESTRADIOL 0.5 MG TAB PO SCH (09:23)
[2018-02-15 09:34] LABS: Amylase 676 U/L (30-110); Lipase 3415 U/L (23-300)
--- NOTE | 2018-02-15 10:07 | P.PN ---
<Caridad Olsen E - Last Filed: 02/15/18 09:57> Subjective Progress Note Date: 02/15/18 HPI: This is a 58-year-old female who presented to the ED with abdominal pain. This has been associated with some nausea but no vomiting. She also had been having some diarrhea. She was seen in ED and thought to have pancreatitis and was admitted for further evaluation. She had a CT of the chest which showed evidence of lung nodules and a pulmonary consultation was placed. The patient denies any shortness of breath at this time. She denies hemoptysis or any recent weight loss. Interval history: 02/15/2018 the patient is being seen examined and evaluated today on rounds. She is resting up in bed on room air. She denies any shortness of breath any cough or congestion. She is a one pack per day smoker of approximately [address] of the chest is again explained with her along with the recommendation of an outpatient PET scan in the near future. Amylase and lipase continued to be monitored, states results pending. She is currently tolerating a clear liquid diet. Denies any current abdominal pain, nausea or vomiting. She is afebrile no further complaints. Objective - Vital Signs Vital signs: Vital Signs Temp 97.5 F L 02/15/18 08:44 Pulse 62 02/15/18 08:44 Resp 16 02/15/18 08:44 BP 134/81 02/15/18 08:44 Pulse Ox 98 02/15/18 08:44 Intake & Output 02/14/18 02/15/18 02/15/18 18:59 06:59 18:59 Intake Total 970 2900 Output Total 175 300 Balance 795 2600 Intake: Oral 970 2900 Output: Urine 175 300 - Exam GENERAL EXAM: Alert, active, comfortable in no apparent distress. HEAD: Normocephalic. EYES: Normal reaction of pupils, equal size. NOSE: Clear with pink turbinates. THROAT: No erythema or exudates. NECK: No masses, no JVD. CHEST: No chest wall deformity. LUNGS: Equal air entry with no crackles, wheeze, rhonchi or dullness. CVS: S1 and S2 normal with no audible mumurs, regular rhythm. ABDOMEN: No hepatosplenomegaly, normal bowel sounds, no guarding or rigidity. EXTREMITIES: No edema noted, pedal pulses palpable. CENTRAL NERVOUS SYSTEM: No focal deficits, tone is normal in all 4 extremities. - Labs CBC & Chem 7: 02/13/18 06:22 02/13/18 06:22 Labs: Abnormal Lab Results - Last 24 Hours (Table) 02/15/18 Range/Units 08:41 Amylase 676 H* (30-110) U/L Lipase 3415 H (23-300) U/L Assessment and Plan Assessment: Assessment Acute pancreatitis Multiple lung nodules bilaterally Abdominal pain and nausea, improving COPD not acutely exacerbated Nicotine dependence Plan Medications have been reviewed and will be continued as ordered. PET scan recommended and will be set up outpatient Continue with pulmonary hygiene, coughing and deep breathing exercises, and supportive care. Supplemental oxygen to maintain oxygen saturations of 92% or better. Diet per GI services Zofran as needed for nausea Check amylase and lipase GI and DVT prophylaxis. Smoking cessation recommended We will continue to monitor labs/results and adjust treatment as necessary. Further recommendations pending. I performed an examination of the patient and discussed their management with the nurse practitioner. I have reviewed the nurse practitioner's note and agree with the documented findings and plan of care. <Colleen Kang A - Last Filed: 02/15/18 14:47> Objective - Vital Signs Vital signs: Vital Signs Temp 97.5 F L 02/15/18 08:44 Pulse 62 02/15/18 08:44 Resp 16 02/15/18 08:44 BP 134/81 02/15/18 08:44 Pulse Ox 98 02/15/18 08:44 Intake & Output 02/14/18 02/15/18 02/15/18 18:59 06:59 18:59 Intake Total 970 2900 1500 Output Total 175 300 Balance 795 2600 1500 Intake: Intake, IV Titration 1000 Amount Sodium Chloride 0.9% 1, 1000 000 ml @ 125 mls/hr IV . Q8H KAR Rx#:[id number] Oral 970 2900 500 Output: Urine 175 300 Other: # Voids 3 - Labs CBC & Chem 7: 02/13/18 06:22 02/13/18 06:22 Labs: Abnormal Lab Results - Last 24 Hours (Table) 02/15/18 Range/Units 08:41 Amylase 676 H* (30-110) U/L Lipase 3415 H (23-300) U/L Assessment and Plan Assessment: Patient seen and examined. Plan for outpatient PET scan and PFT. Further recommendations regarding need for biopsy pending PET scan. Diet per GI. Patient's breathing appears to be at baseline. Smoking cessation. ~Colleen Kang, DO
[2018-02-15] MEDS: MONTELUKAST 10 MG TAB PO SCH (21:15)
[2018-02-16] MEDS: HYDROcodone/APAP 7.5-325MG 1 EACH TAB PO PRN ×4 (01:34→19:02)
[2018-02-16] MEDS: SODIUM CHLORIDE 0.9% 1,000 ML IV SCH ×3 (01:35→19:07)
[2018-02-16] MEDS: MORPHINE SULFATE 4 MG/ML SYRINGE IV PRN ×4 (03:58→22:03)
[2018-02-16 07:02] LABS: ALT 38 U/L (9-52); AST 28 U/L (14-36); Albumin 1.9 g/dL (3.5-5.0); Alkaline Phosphatase 63 U/L (38-126); Amylase 224 U/L (30-110); Anion Gap 1 mmol/L; Blood Urea Nitrogen <2 mg/dL (7-17); Calcium 7.2 mg/dL (8.4-10.2); Carbon Dioxide 21 mmol/L (22-30); Chloride 113 mmol/L (98-107); Glucose 76 mg/dL (74-99); Lipase 578 U/L (23-300); Sodium 135 mmol/L (137-145); Total Bilirubin 0.1 mg/dL (0.2-1.3); Total Protein 3.7 g/dL (6.3-8.2)
[2018-02-16 07:08] LABS: Potassium 2.9 mmol/L (3.5-5.1)
[2018-02-16] MEDS ORDERED: Potassium Replacement Protocol 1 EACH MISC MISCELLANE PRN (07:28)
[2018-02-16] MEDS: POTASSIUM CHLORIDE ER 20 MEQ TAB.ER PO SCH ×3 (07:59→10:17)
[2018-02-16] MEDS: NICOTINE 14MG/24HR PATCH TRANSDERM SCH (08:00)
[2018-02-16] MEDS: ESTRADIOL 0.5 MG TAB PO SCH (09:04)
[2018-02-16] MEDS: PANTOPRAZOLE 40 MG/10 ML VIAL IVP SCH (09:06)
[2018-02-16] MEDS: HEPARIN SODIUM,PORCINE 5,000 UNIT/ML 1 ML VIAL SQ SCH ×2 (09:06→20:25)
[2018-02-16] MEDS ORDERED: Magnesium Replacement Protocol 1 EACH MISC MISCELLANE PRN (10:58)
--- NOTE | 2018-02-16 10:58 | P.PN ---
Subjective Progress Note Date: 02/16/18 HPI: This is a 58-year-old female who presented to the ED with abdominal pain. This has been associated with some nausea but no vomiting. She also had been having some diarrhea. She was seen in ED and thought to have pancreatitis and was admitted for further evaluation. She had a CT of the chest which showed evidence of lung nodules and a pulmonary consultation was placed. The patient denies any shortness of breath at this time. She denies hemoptysis or any recent weight loss. Interval history: 02/15/2018 the patient is being seen examined and evaluated today on rounds. She is resting up in bed on room air. She denies any shortness of breath any cough or congestion. She is a one pack per day smoker of approximately [address] of the chest is again explained with her along with the recommendation of an outpatient PET scan in the near future. Amylase and lipase continued to be monitored, states results pending. She is currently tolerating a clear liquid diet. Denies any current abdominal pain, nausea or vomiting. She is afebrile no further complaints. 02/16/18- patient is being seen examined and evaluated today on rounds. Her amylase today is 224 her lipase is 578. Her diet has been added and since she' s been tolerating that well. Her potassium today is 2.6, mag is 1.6 and is being replaced per protocol. Her breathing has been relatively stable with no issues. She does occasionally have a dry cough that she contributes to the dry air in the hospital. She has been afebrile no further complaints Objective - Vital Signs Vital signs: Vital Signs Temp 97.5 F L 02/16/18 07:50 Pulse 68 02/16/18 07:50 Resp 18 02/16/18 07:50 BP 123/82 02/16/18 07:50 Pulse Ox 95 02/16/18 07:50 Intake & Output 02/15/18 02/16/18 02/16/18 18:59 06:59 18:59 Intake Total 1500 Balance 1500 Weight 31.2 kg Intake: Intake, IV Titration 1000 Amount Sodium Chloride 0.9% 1, 1000 000 ml @ 125 mls/hr IV . Q8H KAR Rx#:[id number] Oral 500 Other: # Voids 3 1 1 - Exam GENERAL EXAM: Alert, active, comfortable in no apparent distress. HEAD: Normocephalic. EYES: Normal reaction of pupils, equal size. NOSE: Clear with pink turbinates. THROAT: No erythema or exudates. NECK: No masses, no JVD. CHEST: No chest wall deformity. LUNGS: Equal air entry with no crackles, wheeze, rhonchi or dullness. CVS: S1 and S2 normal with no audible mumurs, regular rhythm. ABDOMEN: No hepatosplenomegaly, normal bowel sounds, no guarding or rigidity. EXTREMITIES: No edema noted, pedal pulses palpable. CENTRAL NERVOUS SYSTEM: No focal deficits, tone is normal in all 4 extremities. - Labs CBC & Chem 7: 02/13/18 06:22 02/16/18 06:33 Labs: Abnormal Lab Results - Last 24 Hours (Table) 02/16/18 Range/Units 06:33 Sodium 135 L (137-145) mmol/L Potassium 2.9 L* (3.5-5.1) mmol/L Chloride 113 H (98-107) mmol/L Carbon Dioxide 21 L (22-30) mmol/L BUN <2 L (7-17) mg/dL Creatinine 0.40 L (0.52-1.04) mg/dL Calcium 7.2 L (8.4-10.2) mg/dL Total Bilirubin 0.1 L (0.2-1.3) mg/dL Total Protein 3.7 L (6.3-8.2) g/dL Albumin 1.9 L (3.5-5.0) g/dL Amylase 224 H (30-110) U/L Lipase 578 H (23-300) U/L Assessment and Plan Assessment: Assessment Acute pancreatitis Multiple lung nodules bilaterally Abdominal pain and nausea, improving COPD not acutely exacerbated Nicotine dependence Hypokalemia Hypomagnesemia Plan Medications have been reviewed and will be continued as ordered. Continue to monitor and replace electrolytes PET scan recommended and will be set up outpatient Continue with pulmonary hygiene, coughing and deep breathing exercises, and supportive care. Supplemental oxygen to maintain oxygen saturations of 92% or better. Diet per GI services Zofran as needed for nausea Check amylase and lipase daily GI and DVT prophylaxis. Smoking cessation recommended We will continue to monitor labs/results and adjust treatment as necessary. Further recommendations pending. I performed an examination of the patient and discussed their management with the nurse practitioner. I have reviewed the nurse practitioner's note and agree with the documented findings and plan of care.
[2018-02-16] MEDS: MAGNESIUM SULFATE-D5W PMX 1 GM in DEXTROSE/WATER 1 100ML.BAG IVPB SCH ×2 (11:29→12:39)
[2018-02-16] MEDS: LISINOPRIL 20 MG TAB PO SCH ×2 (12:08→16:35)
[2018-02-16] MEDS ORDERED: POTASSIUM CHLORIDE ER 20 MEQ TAB.ER PO STA (12:58)
--- NOTE | 2018-02-16 16:20 | P.PN ---
Subjective Progress Note Date: 02/16/18 Principal diagnosis: This is a continue present for 58-year-old white female Center admitted For chronic pancreatitis. The patient still states some abdominal pain. She is probably needing a PET scan for new CT scan of the chest findings. However, she seems to be tolerating diet appropriately. No significant nausea or vomiting. Clear liquids are being tolerated otherwise. Objective - Vital Signs Vital signs: Vital Signs Temp 97.6 F 02/16/18 12:15 Pulse 64 02/16/18 12:15 Resp 18 02/16/18 07:50 BP 113/75 02/16/18 12:15 Pulse Ox 95 02/16/18 07:50 Intake & Output 02/15/18 02/16/18 02/16/18 18:59 06:59 18:59 Intake Total 1500 240 Balance 1500 240 Weight 31.2 kg Intake: Intake, IV Titration 1000 Amount Sodium Chloride 0.9% 1, 1000 000 ml @ 125 mls/hr IV . Q8H KAR Rx#:[id number] Oral 500 240 Other: # Voids 3 1 1 - Constitutional General appearance: Present: thin - EENT Eyes: Absent: abnormal pupil - Respiratory Respiratory: bilateral: CTA - Cardiovascular Rhythm: regular Abnormal Heart Sounds: Present: S3 Gallop - Gastrointestinal General gastrointestinal: Present: soft. Absent: tenderness - Integumentary Integumentary: Absent: cellulitis - Labs CBC & Chem 7: 02/13/18 06:22 02/16/18 11:19 Labs: Abnormal Lab Results - Last 24 Hours (Table) 02/16/18 Range/Units 06:33 Sodium 135 L (137-145) mmol/L Potassium 2.9 L* (3.5-5.1) mmol/L Chloride 113 H (98-107) mmol/L Carbon Dioxide 21 L (22-30) mmol/L BUN <2 L (7-17) mg/dL Creatinine 0.40 L (0.52-1.04) mg/dL Calcium 7.2 L (8.4-10.2) mg/dL Total Bilirubin 0.1 L (0.2-1.3) mg/dL Total Protein 3.7 L (6.3-8.2) g/dL Albumin 1.9 L (3.5-5.0) g/dL Amylase 224 H (30-110) U/L Lipase 578 H (23-300) U/L Assessment and Plan (1) Pancreatitis Current Visit: Yes Status: Acute Code(s): K85.90 - ACUTE PANCREATITIS WITHOUT NECROSIS OR INFECTION, UNSP SNOMED Code(s): 47212716 (2) Abdominal pain Current Visit: No Status: Acute Code(s): R10.9 - UNSPECIFIED ABDOMINAL PAIN SNOMED Code(s): 38076993 (3) COPD (chronic obstructive pulmonary disease) Current Visit: No Status: Acute Code(s): J44.9 - CHRONIC OBSTRUCTIVE PULMONARY DISEASE, UNSPECIFIED SNOMED Code(s): 71721505 Plan: Potassium is quite low today. Start appropriate protocol. Check CMP with amylase and lipase in the a.m. Anticipate discharge in next 24-48 hours tolerating diet and enzymatic pancreas elevation is normalizing.
[2018-02-16] MEDS: PANTOPRAZOLE 40 MG TABLET PO SCH (20:25)
[2018-02-16] MEDS: MONTELUKAST 10 MG TAB PO SCH (20:25)
[2018-02-17] MEDS: HYDROcodone/APAP 7.5-325MG 1 EACH TAB PO PRN ×2 (01:18→07:01)
[2018-02-17] MEDS: MORPHINE SULFATE 4 MG/ML SYRINGE IV PRN (04:15)
[2018-02-17 07:32] LABS: Potassium 4.4 mmol/L (3.5-5.1)
--- NOTE | 2018-02-17 08:15 | P.DS ---
Providers Date of admission: 02/12/18 19:28 Attending physician: Malcolm Degroot Consults: 02/13/18 13:07 Consult Physician Routine Consulting Provider: Aime Stephens Consult Reason/Comments: abnormal CT of chest Do you want consulting provider notified?: Yes Primary care physician: Malcolm Degroot - Discharge Diagnosis(es) (1) Pancreatitis Current Visit: Yes Status: Acute (2) Abdominal pain Current Visit: No Status: Acute (3) COPD (chronic obstructive pulmonary disease) Current Visit: No Status: Acute Hospital Course: This discharge summary 58-year-old white female essentially admitted for recurrent parotitis. The patient was stabilized medically. Appropriate consultations were done. Unfortunately, she has an element of new lung mass. PET scan will be ordered as an outpatient and she'll follow-up with me in approximately 7 days. Patient Condition at Discharge: Serious Plan - Discharge Summary New Discharge Prescriptions: No Action Estradiol [Estrace] 2 mg PO DAILY Montelukast [Singulair] 10 mg PO HS Lisinopril [Zestril] 20 mg PO DAILY HYDROcodone/APAP 7.5-325MG [[place] 7.5] 1 tab PO Q6HR PRN PRN Reason: Pain Discharge Medication List Estradiol [Estrace] 2 mg PO DAILY 01/03/14 [History] Montelukast [Singulair] 10 mg PO HS 04/24/16 [History] HYDROcodone/APAP 7.5-325MG [[place] 7.5] 1 tab PO Q6HR PRN 02/12/18 [History] Lisinopril [Zestril] 20 mg PO DAILY 02/12/18 [History] Follow up Appointment(s)/Referral(s): Bhargav Johnson MD [STAFF PHYSICIAN] - 2 Weeks Aime Stephens MD [STAFF PHYSICIAN] - 1 Week Malcolm Degroot MD [Primary Care Provider] - 1 Week Discharge Disposition: HOME SELF-CARE
[2018-02-17 08:29] VITALS: BP 133/83; PULSE 61; RESP 16; TEMP 98
[2018-02-17] MEDS: PANTOPRAZOLE 40 MG TABLET PO SCH (08:59)
[2018-02-17] MEDS: ESTRADIOL 0.5 MG TAB PO SCH (08:59)
[2018-02-17] MEDS: HEPARIN SODIUM,PORCINE 5,000 UNIT/ML 1 ML VIAL SQ SCH (08:59)
[2018-02-17] MEDS: NICOTINE 14MG/24HR PATCH TRANSDERM SCH (09:15)
[2018-02-17] MEDS: LISINOPRIL 20 MG TAB PO SCH (09:15)
--- NOTE | 2018-02-17 09:58 | P.PN ---
Subjective Progress Note Date: 02/17/18 HPI: This is a 58-year-old female who presented to the ED with abdominal pain. This has been associated with some nausea but no vomiting. She also had been having some diarrhea. She was seen in ED and thought to have pancreatitis and was admitted for further evaluation. She had a CT of the chest which showed evidence of lung nodules and a pulmonary consultation was placed. The patient denies any shortness of breath at this time. She denies hemoptysis or any recent weight loss. Interval history: 02/15/2018 the patient is being seen examined and evaluated today on rounds. She is resting up in bed on room air. She denies any shortness of breath any cough or congestion. She is a one pack per day smoker of approximately [address] of the chest is again explained with her along with the recommendation of an outpatient PET scan in the near future. Amylase and lipase continued to be monitored, states results pending. She is currently tolerating a clear liquid diet. Denies any current abdominal pain, nausea or vomiting. She is afebrile no further complaints. 02/16/18- patient is being seen examined and evaluated today on rounds. Her amylase today is 224 her lipase is 578. Her diet has been added and since she' s been tolerating that well. Her potassium today is 2.6, mag is 1.6 and is being replaced per protocol. Her breathing has been relatively stable with no issues. She does occasionally have a dry cough that she contributes to the dry air in the hospital. She has been afebrile no further complaints 02/17/18- patient is being seen examined and evaluated today on rounds. She is feeling much better today. Her potassium and magnesium are within normal range today. She is being prepared for discharge. He has been tolerating her diet quite well. Objective - Vital Signs Vital signs: Vital Signs Temp 98.0 F 02/17/18 07:40 Pulse 61 02/17/18 07:40 Resp 16 02/17/18 07:40 BP 133/83 02/17/18 07:40 Pulse Ox 97 02/17/18 07:40 Intake & Output 02/16/18 02/17/18 02/17/18 18:59 06:59 18:59 Intake Total 240 200 Balance 240 200 Weight 31.2 kg Intake: Oral 240 200 Other: # Voids 1 1 1 - Exam GENERAL EXAM: Alert, active, comfortable in no apparent distress. HEAD: Normocephalic. EYES: Normal reaction of pupils, equal size. NOSE: Clear with pink turbinates. THROAT: No erythema or exudates. NECK: No masses, no JVD. CHEST: No chest wall deformity. LUNGS: Equal air entry with no crackles, wheeze, rhonchi or dullness. CVS: S1 and S2 normal with no audible mumurs, regular rhythm. ABDOMEN: No hepatosplenomegaly, normal bowel sounds, no guarding or rigidity. EXTREMITIES: No edema noted, pedal pulses palpable. CENTRAL NERVOUS SYSTEM: No focal deficits, tone is normal in all 4 extremities. - Labs CBC & Chem 7: 02/13/18 06:22 02/17/18 06:34 Assessment and Plan Assessment: Assessment Acute pancreatitis Multiple lung nodules bilaterally Abdominal pain and nausea, improving COPD not acutely exacerbated Nicotine dependence Hypokalemia Hypomagnesemia Plan Patient is being cleared for discharge from a pulmonary standpoint Medications have been reviewed and will be continued as ordered. Continue to monitor and replace electrolytes PET scan recommended and will be set up outpatient Continue with pulmonary hygiene, coughing and deep breathing exercises, and supportive care. Supplemental oxygen to maintain oxygen saturations of 92% or better. Diet per GI services Zofran as needed for nausea Check amylase and lipase daily GI and DVT prophylaxis. Smoking cessation recommended We will continue to monitor labs/results and adjust treatment as necessary. I performed an examination of the patient and discussed their management with the nurse practitioner. I have reviewed the nurse practitioner's note and agree with the documented findings and plan of care.
== END 2018-02-17 10:47 | disposition home or self-care (01) | DRG 438 ==
LOC: EC 16:33 → 6PED 19:28
PROVIDERS: ADMIT Family Medicine; ATTEND Family Medicine
DX: K85.90 Acute pancreatitis without necrosis or infection, unspecified (principal); E43 Unspecified severe protein-calorie malnutrition; E87.1 Hypo-osmolality and hyponatremia; Z68.1 Body mass index [BMI] 19.9 or less, adult; E87.5 Hyperkalemia; I10 Essential (primary) hypertension; R91.8 Other nonspecific abnormal finding of lung field; J43.9 Emphysema, unspecified; F32.9 Major depressive disorder, single episode, unspecified; E83.42 Hypomagnesemia; E87.6 Hypokalemia; F17.210 Nicotine dependence, cigarettes, uncomplicated; K86.1 Other chronic pancreatitis; Z90.710 Acquired absence of both cervix and uterus; Z90.49 Acquired absence of other specified parts of digestive tract; Z79.899 Other long term (current) drug therapy; Z88.1 Allergy status to other antibiotic agents; Z88.5 Allergy status to narcotic agent; Z88.0 Allergy status to penicillin; Z88.2 Allergy status to sulfonamides; Z88.8 Allergy status to other drugs, medicaments and biological substances; Z71.6 Tobacco abuse counseling; Z87.01 Personal history of pneumonia (recurrent); Z79.890 Hormone replacement therapy; Z80.9 Family history of malignant neoplasm, unspecified; Z82.49 Family history of ischemic heart disease and other diseases of the circulatory system; Z90.81 Acquired absence of spleen
CPT/HCPCS: 36415; 71045; 71250; 74018; 74176; 76705; 80053; 81001; 82150; 82550; 82553; 83605; 83690; 83735; 84132; 84484; 85025; 93005; 96361; 96374; 96375; 96376; 99285

== ENCOUNTER 2018-04-22 15:26 | Inpatient (IN) | payer OTHER ==
[2018-04-22] MEDS ORDERED: SODIUM CHLORIDE 0.9% 1,000 ML IV STA (15:45)
[2018-04-22] MEDS ORDERED: ONDANSETRON 4 MG/2 ML VIAL IVP STA (15:53)
[2018-04-22] MEDS ORDERED: MORPHINE SULFATE 4 MG/ML SYRINGE IVP STA (15:53)
--- NOTE | 2018-04-22 16:00 | ED ---
Abdominal Pain HPI - General Chief Complaint: Abdominal Pain Stated Complaint: abdominal pain Time Seen by Provider: 04/22/18 15:45 Source: patient, RN notes reviewed Mode of arrival: wheelchair Limitations: no limitations - History of Present Illness Initial Comments: 58-year-old female presents emergency Department with chief complaint of abdominal pain. Patient states that she's had ongoing abdominal pain in issues. Patient states she's had recurrent pancreatitis. Patient states she is scheduled see Dr. Dao this week decided they need to do ERCP or EGD to evaluate other causes. She states she occasionally drinks alcohol no recent alcohol use. Patient states she is very nauseated increasing dominant pain. No diarrhea no constipation patient denies any fever, chills, chest pain or shortness of breath - Related Data Home Medications Medication Instructions Recorded Confirmed Estradiol [Estrace] 2 mg PO DAILY 01/03/14 04/22/18 Montelukast [Singulair] 10 mg PO HS 04/24/16 04/22/18 HYDROcodone/APAP 7.5-325MG [[place] 1 tab PO Q6HR PRN 02/12/18 04/22/18 7.5] Lisinopril [Zestril] 20 mg PO DAILY 02/12/18 04/22/18 Allergies Allergy/AdvReac Type Severity Reaction Status Date / Time amoxicillin trihydrate Allergy Nausea & Verified 04/22/18 15:59 [From Augmentin] Vomiting hydromorphone HCl Allergy Nausea & Verified 04/22/18 15:59 [From Dilaudid] Vomiting meperidine HCl [From Demerol] Allergy Nausea & Verified 04/22/18 15:59 Vomiting potassium clavulanate Allergy Nausea & Verified 04/22/18 15:59 [From Augmentin] Vomiting sulfamethoxazole Allergy Nausea & Verified 04/22/18 15:59 [From Bactrim] Vomiting trimethoprim [From Bactrim] Allergy Nausea & Verified 04/22/18 15:59 Vomiting Review of Systems ROS Statement: Those systems with pertinent positive or pertinent negative responses have been documented in the HPI. ROS Other: All systems not noted in ROS Statement are negative. Past Medical History Past Medical History: COPD, Pneumonia Additional Past Medical History / Comment(s): pancreatitis November 2013, History of Any Multi-Drug Resistant Organisms: None Reported Past Surgical History: Cholecystectomy, Hysterectomy Additional Past Surgical History / Comment(s): splenectomy Mar 1983. Reconstruction face, mouth, teeth Mar 1983. Knee Past Anesthesia/Blood Transfusion Reactions: Postoperative Nausea & Vomiting ( PONV) Additional Past Anesthesia/Blood Transfusion Reaction / Comment(s): Pt states it depends on what medications were used, varied reactions. Past Psychological History: Anxiety Smoking Status: Current every day smoker Past Alcohol Use History: Occasional Past Drug Use History: None Reported - Past Family History Mother Family Medical History: AFIB, Cancer Additional Family Medical History / Comment(s): spondylo General Exam Limitations: no limitations General appearance: alert, in no apparent distress Head exam: Present: atraumatic, normocephalic, normal inspection Neck exam: Present: normal inspection, full ROM. Absent: tenderness, meningismus, lymphadenopathy Respiratory exam: Present: normal lung sounds bilaterally. Absent: respiratory distress, wheezes, rales, rhonchi, stridor Cardiovascular Exam: Present: regular rate, normal rhythm, normal heart sounds. Absent: systolic murmur, diastolic murmur, rubs, gallop, clicks GI/Abdominal exam: Present: soft, tenderness (Moderate midabdominal), normal bowel sounds. Absent: distended, guarding, rebound, rigid Back exam: Absent: CVA tenderness (R), CVA tenderness (L) Skin exam: Present: warm, dry, intact, normal color. Absent: rash Course Vital Signs 04/22/18 15:38 Temperature 97.8 F Pulse Rate 77 Respiratory 20 Rate Blood Pressure 136/88 O2 Sat by Pulse 98 Oximetry Medical Decision Making - Lab Data Result diagrams: 04/22/18 16:17 04/22/18 16:17 Lab Results 04/22/18 04/22/18 04/22/18 Range/Units 16:12 16:17 16:17 WBC 13.5 H (3.8-10.6) k/uL RBC 3.82 (3.80-5.40) m/uL Hgb 13.2 (11.4-16.0) gm/dL Hct 40.7 (34.0-46.0) % MCV 106.4 H (80.0-100.0) fL MCH 34.6 (25.0-35.0) pg MCHC 32.5 (31.0-37.0) g/dL RDW 13.1 (11.5-15.5) % Plt Count 350 (150-450) k/uL Neutrophils % 86 % Lymphocytes % 8 % Monocytes % 5 % Eosinophils % 0 % Basophils % 0 % Neutrophils # 11.7 H (1.3-7.7) k/uL Lymphocytes # 1.1 (1.0-4.8) k/uL Monocytes # 0.6 (0-1.0) k/uL Eosinophils # 0.0 (0-0.7) k/uL Basophils # 0.0 (0-0.2) k/uL Macrocytosis Moderate PT (9.0-12.0) sec INR (<1.2) APTT (22.0-30.0) sec Sodium 133 L (137-145) mmol/L Potassium 4.3 (3.5-5.1) mmol/L Chloride 100 (98-107) mmol/L Carbon Dioxide 28 (22-30) mmol/L Anion Gap 5 mmol/L BUN 12 (7-17) mg/dL Creatinine 0.44 L (0.52-1.04) mg/dL Est GFR (CKD-EPI)AfAm >90 (>60 ml/min/1.73 sqM) Est GFR (CKD-EPI)NonAf >90 (>60 ml/min/1.73 sqM) Glucose 79 (74-99) mg/dL Calcium 9.0 (8.4-10.2) mg/dL Total Bilirubin 0.4 (0.2-1.3) mg/dL AST 21 (14-36) U/L ALT 25 (9-52) U/L Alkaline Phosphatase 67 (38-126) U/L Total Protein 5.7 L (6.3-8.2) g/dL Albumin 3.3 L (3.5-5.0) g/dL Amylase 543 H* (30-110) U/L Lipase 3192 H (23-300) U/L Urine Color Yellow Urine Appearance Cloudy H (Clear) Urine pH 6.0 (5.0-8.0) Ur Specific [place] 1.021 (1.001-1.035) Urine Protein Trace H (Negative) Urine Glucose (UA) Negative (Negative) Urine Ketones 1+ H (Negative) Urine Blood Small H (Negative) Urine Nitrite Negative (Negative) Urine Bilirubin Negative (Negative) Urine Urobilinogen <2.0 (<2.0) mg/dL Ur Leukocyte Esterase Negative (Negative) Urine RBC 9 H (0-5) /hpf Urine WBC 3 (0-5) /hpf Ur Squamous Epith Cells 11 H (0-4) /hpf Urine Bacteria Few H (None) /hpf Hyaline Casts 4 H (0-2) /lpf Urine Mucus Rare H (None) /hpf 04/22/18 Range/Units 16:17 WBC (3.8-10.6) k/uL RBC (3.80-5.40) m/uL Hgb (11.4-16.0) gm/dL Hct (34.0-46.0) % MCV (80.0-100.0) fL MCH (25.0-35.0) pg MCHC (31.0-37.0) g/dL RDW (11.5-15.5) % Plt Count (150-450) k/uL Neutrophils % % Lymphocytes % % Monocytes % % Eosinophils % % Basophils % % Neutrophils # (1.3-7.7) k/uL Lymphocytes # (1.0-4.8) k/uL Monocytes # (0-1.0) k/uL Eosinophils # (0-0.7) k/uL Basophils # (0-0.2) k/uL Macrocytosis PT 9.8 (9.0-12.0) sec INR 1.0 (<1.2) APTT 25.4 (22.0-30.0) sec Sodium (137-145) mmol/L Potassium (3.5-5.1) mmol/L Chloride (98-107) mmol/L Carbon Dioxide (22-30) mmol/L Anion Gap mmol/L BUN (7-17) mg/dL Creatinine (0.52-1.04) mg/dL Est GFR (CKD-EPI)AfAm (>60 ml/min/1.73 sqM) Est GFR (CKD-EPI)NonAf (>60 ml/min/1.73 sqM) Glucose (74-99) mg/dL Calcium (8.4-10.2) mg/dL Total Bilirubin (0.2-1.3) mg/dL AST (14-36) U/L ALT (9-52) U/L Alkaline Phosphatase (38-126) U/L Total Protein (6.3-8.2) g/dL Albumin (3.5-5.0) g/dL Amylase (30-110) U/L Lipase (23-300) U/L Urine Color Urine Appearance (Clear) Urine pH (5.0-8.0) Ur Specific [place] (1.001-1.035) Urine Protein (Negative) Urine Glucose (UA) (Negative) Urine Ketones (Negative) Urine Blood (Negative) Urine Nitrite (Negative) Urine Bilirubin (Negative) Urine Urobilinogen (<2.0) mg/dL Ur Leukocyte Esterase (Negative) Urine RBC (0-5) /hpf Urine WBC (0-5) /hpf Ur Squamous Epith Cells (0-4) /hpf Urine Bacteria (None) /hpf Hyaline Casts (0-2) /lpf Urine Mucus (None) /hpf Disposition Clinical Impression: Abdominal pain, Pancreatitis Disposition: ADMITTED IP TO THIS [facility] Condition: Fair Referrals: Malcolm Degroot MD [Primary Care Provider] - 1-2 days
[2018-04-22 16:36] LABS: Appearance,Urine Cloudy (Clear); Bacteria,Urine Few /hpf; Bilirubin,Urine Negative (Negative); Blood,Urine Small (Negative); Color,Urine Yellow; Glucose,Urine (UA) Negative (Negative); Hyaline Casts,Urine 4 /lpf (0-2); Ketones,Urine 1+ (Negative); Leukocyte Esterase,Urine Negative (Negative); Mucus,Urine Rare /hpf; Nitrite,Urine Negative (Negative); Protein,Urine Trace (Negative); RBC,Urine 9 /hpf (0-5); Specific Gravity,Urine 1.021 (1.001-1.035); Squamous Epithelial Cell,Urine 11 /hpf (0-4); Urobilinogen,Urine <2.0 mg/dL (<2.0); WBC,Urine 3 /hpf (0-5)
[2018-04-22 17:10] LABS: Basophils % (A) 0 %; Eosinophils % (A) 0 %; HCT 40.7 % (34.0-46.0); HGB 13.2 gm/dL (11.4-16.0); Lymphocytes # (A) 1.1 k/uL (1.0-4.8); Lymphocytes % (A) 8 %; MCH 34.6 pg (25.0-35.0); MCHC 32.5 g/dL (31.0-37.0); MCV 106.4 fL (80.0-100.0); Macrocytosis Moderate; Mean Platelet Volume 7.4; Monocytes # (A) 0.6 k/uL (0-1.0); Monocytes % (A) 5 %; Neutrophils # (A) 11.7 k/uL (1.3-7.7); Neutrophils % (A) 86 %; Platelet Count 350 k/uL (150-450); RBC 3.82 m/uL (3.80-5.40); RDW 13.1 % (11.5-15.5); WBC 13.5 k/uL (3.8-10.6)
[2018-04-22] MEDS ORDERED: KETOROLAC 30 MG/ML 1 ML VIAL IVP STA (17:10)
[2018-04-22 17:20] LABS: ALT 25 U/L (9-52); AST 21 U/L (14-36); Albumin 3.3 g/dL (3.5-5.0); Alkaline Phosphatase 67 U/L (38-126); Anion Gap 5 mmol/L; Blood Urea Nitrogen 12 mg/dL (7-17); Carbon Dioxide 28 mmol/L (22-30); Chloride 100 mmol/L (98-107); Glucose 79 mg/dL (74-99); Partial Thromboplastin Time 25.4 sec (22.0-30.0); Potassium 4.3 mmol/L (3.5-5.1); Prothrombin Time 9.8 sec (9.0-12.0); Sodium 133 mmol/L (137-145); Total Bilirubin 0.4 mg/dL (0.2-1.3); Total Protein 5.7 g/dL (6.3-8.2)
[2018-04-22 17:30] LABS: Amylase 543 U/L (30-110)
[2018-04-22 17:32] LABS: Lipase 3192 U/L (23-300)
[2018-04-22] MEDS ORDERED: KETOROLAC 30 MG/ML 1 ML VIAL IVP PRN (17:44)
[2018-04-22] MEDS ORDERED: ONDANSETRON 4 MG/2 ML VIAL IVP PRN (17:44)
[2018-04-22] MEDS ORDERED: NALOXONE 0.4 MG/ML 1 ML VIAL IV PRN (17:44)
[2018-04-22] MEDS: SODIUM CHLORIDE 0.9% 1,000 ML IV SCH (18:28)
[2018-04-22] MEDS: MORPHINE SULFATE 4 MG/ML SYRINGE IV PRN ×2 (19:49→23:58)
[2018-04-22] MEDS: MONTELUKAST 10 MG TAB PO SCH (21:54)
[2018-04-22] MEDS: HYDROcodone/APAP 7.5-325MG 1 EACH TAB PO PRN (21:54)
[2018-04-23] MEDS: SODIUM CHLORIDE 0.9% 1,000 ML IV SCH ×3 (02:21→21:07)
[2018-04-23] MEDS: HYDROcodone/APAP 7.5-325MG 1 EACH TAB PO PRN ×3 (06:05→21:04)
--- NOTE | 2018-04-23 07:30 | P.HPIM ---
History of Present Illness H&P Date: 04/23/18 Chief Complaint: Recurrent pancreatitis. This is a history of physical 58-year-old white female with known history of COPD who comes in with elevated amylase and lipase with abdominal pain and weight loss. Unfortunately, she gives me history of lung mass. Pulmonology has stated that they would like to do a bronchoscopy to elucidate and start staging. However, she is reluctant at this time to do any type of invasive procedure as it relates to the mass. Because of this, I had a long discussion with her regarding end-of-life care. She is agreeable to possible palliative or hospice care given her overall prognosis. She wishes to be comfortable at this time and feels too sick to do any type of chemotherapeutic treatment. She' s had significant weight loss in the last 3 months. Review of Systems Constitutional: Reports chronic headaches Eyes: denies blurred vision, denies pain Ears, nose, mouth and throat: Denies headache, Denies sore throat Cardiovascular: Denies shortness of breath Respiratory: Denies cough Genitourinary: Denies dysuria, Denies hematuria Musculoskeletal: Denies myalgias Past Medical History Past Medical History: COPD, Pneumonia Additional Past Medical History / Comment(s): lung cancer now pancreatitis November 2013, History of Any Multi-Drug Resistant Organisms: None Reported Past Surgical History: Cholecystectomy, Hysterectomy Additional Past Surgical History / Comment(s): splenectomy Mar 1983. Reconstruction face, mouth, teeth Mar 1983. Knee Past Anesthesia/Blood Transfusion Reactions: Postoperative Nausea & Vomiting ( PONV) Additional Past Anesthesia/Blood Transfusion Reaction / Comment(s): Pt states it depends on what medications were used, varied reactions. Past Psychological History: Anxiety Additional Psychological History / Comment(s): Pt resides with her ex spouse. She is independent. She drives. Smoking Status: Current every day smoker Past Alcohol Use History: Occasional Additional Past Alcohol Use History / Comment(s): Pt states she started smoking in 1975 and is a ppd smoker. Pt states she drinks beer but states she does not drink more that 7 beers in a week. Past Drug Use History: None Reported - Past Family History Mother Family Medical History: AFIB, Cancer Additional Family Medical History / Comment(s): spondylo Medications and Allergies Home Medications Medication Instructions Recorded Confirmed Type Estradiol [Estrace] 2 mg PO DAILY 01/03/14 04/22/18 History Montelukast [Singulair] 10 mg PO HS 04/24/16 04/22/18 History HYDROcodone/APAP 7.5-325MG [[place] 1 tab PO Q6HR PRN 02/12/18 04/22/18 History 7.5] Lisinopril [Zestril] 20 mg PO DAILY 02/12/18 04/22/18 History Allergies Allergy/AdvReac Type Severity Reaction Status Date / Time amoxicillin trihydrate Allergy Nausea & Verified 04/22/18 15:59 [From Augmentin] Vomiting hydromorphone HCl Allergy Nausea & Verified 04/22/18 15:59 [From Dilaudid] Vomiting meperidine HCl [From Demerol] Allergy Nausea & Verified 04/22/18 15:59 Vomiting potassium clavulanate Allergy Nausea & Verified 04/22/18 15:59 [From Augmentin] Vomiting sulfamethoxazole Allergy Nausea & Verified 04/22/18 15:59 [From Bactrim] Vomiting trimethoprim [From Bactrim] Allergy Nausea & Verified 04/22/18 15:59 Vomiting Physical Exam Vitals: Vital Signs Temp Pulse Pulse Resp BP BP Pulse Ox 04/23/18 00:45 97.6 F 46 L 14 109/62 100 04/22/18 20:06 97.6 F 65 18 146/87 93 L 04/22/18 19:07 74 18 146/89 98 04/22/18 18:00 78 18 148/94 88 L 04/22/18 17:00 76 18 142/119 93 L 04/22/18 15:38 97.8 F 77 20 136/88 98 Intake and Output 04/22/18 04/23/18 04/23/18 22:59 06:59 14:59 Intake Total 375 1125 Balance 375 1125 Intake: Intake, IV Titration 375 1125 Amount Sodium Chloride 0.9% 1, 375 1125 000 ml @ 125 mls/hr IV . Q8H [facility] Rx#:[id number] Other: # Voids 3 Weight 29.484 kg - Constitutional General appearance: no acute distress, thin - EENT Eyes: EOMI - Neck Neck: no lymphadenopathy - Respiratory Respiratory: bilateral: diminished - Cardiovascular Rhythm: regular Heart sounds: normal: S1, S2 - Gastrointestinal General gastrointestinal: tenderness - Neurologic Neurologic: CNII-XII intact Results CBC & Chem 7: 04/22/18 16:17 04/22/18 16:17 Labs: Abnormal Lab Results - Last 24 Hours (Table) 04/22/18 04/22/18 04/22/18 Range/Units 16:12 16:17 16:17 WBC 13.5 H (3.8-10.6) k/uL MCV 106.4 H (80.0-100.0) fL Neutrophils # 11.7 H (1.3-7.7) k/uL Sodium 133 L (137-145) mmol/L Creatinine 0.44 L (0.52-1.04) mg/dL Total Protein 5.7 L (6.3-8.2) g/dL Albumin 3.3 L (3.5-5.0) g/dL Amylase 543 H* (30-110) U/L Lipase 3192 H (23-300) U/L Urine Appearance Cloudy H (Clear) Urine Protein Trace H (Negative) Urine Ketones 1+ H (Negative) Urine Blood Small H (Negative) Urine RBC 9 H (0-5) /hpf Ur Squamous Epith Cells 11 H (0-4) /hpf Urine Bacteria Few H (None) /hpf Hyaline Casts 4 H (0-2) /lpf Urine Mucus Rare H (None) /hpf Thrombosis Risk Factor Assmnt - Choose All That Apply Any of the Below Risk Factors Present?: Yes Each Factor Represents 1 point: Abnormal pulmonary function (COPD), Age 41-60 years Thrombosis Risk Factor Assessment Total Risk Factor Score: 2 Thrombosis Risk Factor Assessment Level: Low Risk Assessment and Plan (1) Lung mass Current Visit: Yes Status: Acute Code(s): R91.8 - OTHER NONSPECIFIC ABNORMAL FINDING OF LUNG FIELD SNOMED Code(s): 607490096 (2) Abdominal pain Current Visit: Yes Status: Acute Code(s): R10.9 - UNSPECIFIED ABDOMINAL PAIN SNOMED Code(s): 25167991 (3) Pancreatitis Current Visit: Yes Status: Acute Code(s): K85.90 - ACUTE PANCREATITIS WITHOUT NECROSIS OR INFECTION, UNSP SNOMED Code(s): 12245774 (4) COPD (chronic obstructive pulmonary disease) Current Visit: No Status: Acute Code(s): J44.9 - CHRONIC OBSTRUCTIVE PULMONARY DISEASE, UNSPECIFIED SNOMED Code(s): 98773010 Plan: At this time, we will go ahead and try to keep the patient fairly comfortable. Consult social work. Check CBC and CMP in a.m. Possible consideration for hospice and palliative care. Dr. Aggarwal's group will be covering for the weekend. Prognosis is poor. Time with Patient: Greater than 30
[2018-04-23] MEDS: MORPHINE SULFATE 4 MG/ML SYRINGE IV PRN ×3 (09:00→17:58)
[2018-04-23] MEDS: ESTRADIOL 0.5 MG TAB PO SCH (09:27)
[2018-04-23 14:14] VITALS: BMI 12.2
[2018-04-23] MEDS: MONTELUKAST 10 MG TAB PO SCH (21:04)
[2018-04-24] MEDS: MORPHINE SULFATE 4 MG/ML SYRINGE IV PRN ×5 (00:23→20:41)
[2018-04-24] MEDS: SODIUM CHLORIDE 0.9% 1,000 ML IV SCH ×3 (02:27→15:17)
[2018-04-24] MEDS: HYDROcodone/APAP 7.5-325MG 1 EACH TAB PO PRN ×3 (03:00→18:09)
[2018-04-24] MEDS: ESTRADIOL 0.5 MG TAB PO SCH (07:40)
[2018-04-24 12:43] LABS: ALT 59 U/L (9-52); AST 50 U/L (14-36); Albumin 2.6 g/dL (3.5-5.0); Alkaline Phosphatase 126 U/L (38-126); Amylase 243 U/L (30-110); Anion Gap 10 mmol/L; Blood Urea Nitrogen 9 mg/dL (7-17); Calcium 7.9 mg/dL (8.4-10.2); Carbon Dioxide 13 mmol/L (22-30); Chloride 112 mmol/L (98-107); Lipase 388 U/L (23-300); Potassium 4.8 mmol/L (3.5-5.1); Sodium 135 mmol/L (137-145); Total Bilirubin 0.3 mg/dL (0.2-1.3); Total Protein 4.9 g/dL (6.3-8.2)
[2018-04-24 12:51] LABS: Basophils % (A) 0 %; Eosinophils % (A) 0 %; HCT 41.4 % (34.0-46.0); HGB 12.9 gm/dL (11.4-16.0); Hypochromasia Marked; Lymphocytes # (A) 0.9 k/uL (1.0-4.8); Lymphocytes % (A) 7 %; MCH 34.9 pg (25.0-35.0); MCHC 31.3 g/dL (31.0-37.0); MCV 111.6 fL (80.0-100.0); Macrocytosis Marked; Monocytes # (A) 0.4 k/uL (0-1.0); Monocytes % (A) 4 %; Neutrophils # (A) 10.8 k/uL (1.3-7.7); Neutrophils % (A) 88 %; Platelet Count 303 k/uL (150-450); RBC 3.71 m/uL (3.80-5.40); RDW 13.3 % (11.5-15.5); WBC 12.3 k/uL (3.8-10.6)
[2018-04-24 12:59] LABS: Glucose 33 mg/dL (74-99)
[2018-04-24] MEDS ORDERED: DEXTROSE 5%-0.9% NACL 1,000 ML IV SCH (13:15)
[2018-04-24] MEDS ORDERED: DEXTROSE 50%-WATER 50 ML SYRINGE IVP STA (13:18)
[2018-04-24 14:09] LABS: Glucose,Whole Blood 406 mg/dL (75-99)
[2018-04-24 14:55] LABS: Glucose,Whole Blood 166 mg/dL (75-99)
[2018-04-24 18:01] LABS: Glucose,Whole Blood 129 mg/dL (75-99)
[2018-04-24] MEDS: PANTOPRAZOLE 40 MG/10 ML VIAL IVP SCH (20:42)
[2018-04-24] MEDS: MONTELUKAST 10 MG TAB PO SCH (20:42)
--- NOTE | 2018-04-24 20:59 | PN ---
PROGRESS NOTE DATE OF SERVICE: 04/24/2018 I am covering for Dr. Degroot. This 58-year-old woman who is extremely emaciated was admitted with history of lung mass, abdominal pain, pancreatitis. Patient has been closely monitored at this time. Patient also wants to consider possible consultation for possible comfort measures or palliative care also. Dr. Degroot is following the patient closely. Patient also found to be hypoglycemic. PAST MEDICAL HISTORY: Reviewed. REVIEW OF SYSTEMS: CARDIOVASCULAR: No angina. RESPIRATORY: As mentioned earlier. GI: As mentioned. : No dysuria. NERVOUS SYSTEM: No numbness or weakness. CURRENT MEDICATIONS: Reviewed and include: 1. [place] 7.5 q.6h p.r.n. 2. Esterase 2 mg daily. 3. Toradol 30 mg. 4. Singular 10 mg daily. 5. Morphine 4 mg IV q.4h p.r.n. 6. Narcan 0.2 q.2h p.r.n. 7. Zofran 4 mg q.8h p.r.n. PHYSICAL EXAM: Patient is alert, oriented x3. Pulse is 53, blood pressure 83/50, respirations 16, temperature 98.8, pulse ox 97 percent. The body mass index is 12.3. HEENT: Conjunctivae pale. Oral mucosa moist. Neck is no jugular venous distention. No carotid bruit. No lymph node enlargement. CARDIOVASCULAR: S1, S2. RESPIRATORY: Breath sounds diminished in the bases. A few scattered rhonchi and crackles. ABDOMEN: Soft, nontender. No mass palpable. LEGS: No edema, no swelling. NERVOUS SYSTEM: Diffusely weak. LAB STUDIES: WBC 12.3, MCV 111.2. Sodium is 135, glucose 406 and 166. Other labs are 4.9, amylase 243, lipase 388. ASSESSMENT: 1. Acute pancreatitis and increased amylase and lipase. 2. Abdominal pain. 3. Lung mass. 4. Chronic obstructive pulmonary disease. 5. Extreme emaciation with severe protein calorie malnutrition with BMI of 12.3. 6. Increased WBC. 7. Increased MCV. 8. Hyponatremia. 9. Gait dysfunction. 10.Increased amylase, lipase. RECOMMENDATIONS AND DISCUSSION: This 58-year-old woman who presented with multiple complex medical issues, we will monitor the patient closely. Continue the current medications. Proton pump inhibitors. Advance diet. IV fluids have been D5 which is increasing blood sugars. I will revert her back to 0.9 and continue to monitor. See orders for details. Prognosis guarded. MMODL / IJN: [id number] / COREEN
[2018-04-24 21:55] LABS: Glucose,Whole Blood 124 mg/dL (75-99)
[2018-04-25] MEDS: MORPHINE SULFATE 4 MG/ML SYRINGE IV PRN ×3 (00:37→21:05)
[2018-04-25] MEDS: SODIUM CHLORIDE 0.9% 1,000 ML IV SCH ×2 (05:19→07:39)
[2018-04-25] MEDS: HYDROcodone/APAP 7.5-325MG 1 EACH TAB PO PRN ×4 (07:40→23:55)
[2018-04-25] MEDS: PANTOPRAZOLE 40 MG/10 ML VIAL IVP SCH ×2 (07:41→21:05)
[2018-04-25 08:35] LABS: Basophils % (A) 0 %; Eosinophils # (A) 0.1 k/uL (0-0.7); Eosinophils % (A) 1 %; HCT 38.3 % (34.0-46.0); HGB 12.1 gm/dL (11.4-16.0); Hypochromasia Slight; Lymphocytes % (A) 8 %; MCH 34.6 pg (25.0-35.0); MCHC 31.5 g/dL (31.0-37.0); Macrocytosis Marked; Mean Platelet Volume 8.2; Monocytes # (A) 0.5 k/uL (0-1.0); Monocytes % (A) 4 %; Neutrophils # (A) 11.1 k/uL (1.3-7.7); Neutrophils % (A) 87 %; Platelet Count 284 k/uL (150-450); RBC 3.48 m/uL (3.80-5.40); RDW 13.2 % (11.5-15.5); WBC 12.7 k/uL (3.8-10.6)
[2018-04-25 08:45] LABS: ALT 51 U/L (9-52); AST 30 U/L (14-36); Albumin 2.3 g/dL (3.5-5.0); Alkaline Phosphatase 120 U/L (38-126); Anion Gap 6 mmol/L; Blood Urea Nitrogen 6 mg/dL (7-17); Calcium 7.9 mg/dL (8.4-10.2); Carbon Dioxide 16 mmol/L (22-30); Chloride 115 mmol/L (98-107); Glucose 65 mg/dL (74-99); Lipase 942 U/L (23-300); Potassium 3.9 mmol/L (3.5-5.1); Sodium 137 mmol/L (137-145); Total Bilirubin 0.2 mg/dL (0.2-1.3); Total Protein 4.5 g/dL (6.3-8.2)
[2018-04-25 08:52] LABS: Amylase 350 U/L (30-110)
[2018-04-25] MEDS ORDERED: IPRATROPIUM-ALBUTEROL 3 ML NEB INHALATION PRN (13:46)
--- NOTE | 2018-04-25 14:14 | XR ---
EXAMINATION TYPE: XR chest 1V DATE OF EXAM: 04/25/2018 HISTORY: productive cough (with signif hx). REFERENCE: Previous study dated 02/13/2018. FINDINGS: The lungs are overinflated. There have developed small, bilateral effusions. Mass in the ri ght upper lobe persists, unchanged. There is atelectatic change present at both lung bases. There is interstitial change in the right lung and to a lesser extent the left lung. This was present previous ly. IMPRESSION: 1. COPD. 2. INTERVAL DEVELOPMENT OF SMALL, BILATERAL EFFUSIONS. 3. ATELECTATIC CHANGE, RIGHT LUNG BASE. 4. PERSISTENT RIGHT UPPER LOBE PULMONARY MASS.
[2018-04-25] MEDS: ESTRADIOL 0.5 MG TAB PO SCH (14:17)
[2018-04-25] MEDS: IPRATROPIUM-ALBUTEROL 3 ML NEB INHALATION SCH ×2 (19:39→20:50)
[2018-04-25 20:24] LABS: Glucose,Whole Blood 118 mg/dL (75-99)
[2018-04-25] MEDS: MONTELUKAST 10 MG TAB PO SCH (21:05)
--- NOTE | 2018-04-25 21:33 | PN ---
PROGRESS NOTE DATE OF SERVICE: 04/25/2018 I am covering for Dr. Degroot. This 58-year-old woman who was admitted with acute pancreatitis and increased amylase and lipase, is improving significantly. No chest pain. No palpitations. No fever. EXAM: Alert and oriented x3. Pulse is 68, blood pressure 154/79, respiration 18, temperature 97.2, pulse ox 98% on room air. HEENT: Conjunctivae normal. NECK: No jugular venous distention. CARDIOVASCULAR: S1, S2. RESPIRATORY: Breath sounds diminished in the bases. ABDOMEN: Soft. Mild diffuse discomfort. LEGS: No edema. NERVOUS SYSTEM: No focal deficits LABS: WBC 12.2, hemoglobin 12.1. Sodium 130, potassium 3.9. ASSESSMENT: 1. Acute pancreatitis with increased amylase, lipase. 2. Abdominal pain for evaluation. 3. Lung mass. 4. Chronic obstructive pulmonary disease. 5. Extremely emaciated, severe protein calorie malnutrition with BMI of 12.3. 6. Increased WBC. 7. Increased MCV. 8. Hyponatremia. 9. Gait dysfunction. 10.Increased amylase and lipase. RECOMMENDATIONS AND DISCUSSION: I recommend to continue current management and symptomatic treatment. Otherwise at this time, I would recommend continue the current medications. The pancreatic enzymes are still elevated and continue to monitor. Further recommendations to follow. MMODL / IJN: [id number] / MTDD
[2018-04-26] MEDS: SODIUM CHLORIDE 0.9% 1,000 ML IV SCH (01:03)
[2018-04-26] MEDS: MORPHINE SULFATE 4 MG/ML SYRINGE IV PRN ×2 (04:51→09:52)
[2018-04-26 07:34] LABS: Glucose,Whole Blood 72 mg/dL (75-99)
[2018-04-26 07:43] VITALS: BP 145/76; PULSE 57; RESP 16; TEMP 97.7
--- NOTE | 2018-04-26 07:45 | P.DS ---
Providers Date of admission: 04/22/18 18:46 Attending physician: Malcolm Degroot Primary care physician: Malcolm Degroot - Discharge Diagnosis(es) (1) Lung mass Current Visit: Yes Status: Acute (2) Abdominal pain Current Visit: Yes Status: Acute (3) Pancreatitis Current Visit: Yes Status: Acute (4) COPD (chronic obstructive pulmonary disease) Current Visit: No Status: Acute Hospital Course: This discharge summary 58-year-old white female essentially admitted for amylase and lipase elevation with probable acute pancreatitis. However, the patient has significant lung mass and after long discussion, wishes to enter hospice treatment. She was kept comfortable with the weekend. We will institute hospice treatment on day of discharge and will continue to follow as an outpatient. Prognosis poor because of her lung mass and the fact that she chooses not to treat it at this time. Patient Condition at Discharge: Poor Plan - Discharge Summary Discharge Rx Participant: No New Discharge Prescriptions: New Ipratropium-Albuterol Nebulize [Duoneb 0.5 mg-3 mg/3 ml Soln] 3 ml INHALATION RT-QID #120 ampul.neb Continue Estradiol [Estrace] 2 mg PO DAILY Montelukast [Singulair] 10 mg PO HS Lisinopril [Zestril] 20 mg PO DAILY HYDROcodone/APAP 7.5-325MG [[place] 7.5-325] 1 tab PO Q6HR PRN PRN Reason: Pain Discharge Medication List Estradiol [Estrace] 2 mg PO DAILY 01/03/14 [History] Montelukast [Singulair] 10 mg PO HS 04/24/16 [History] HYDROcodone/APAP 7.5-325MG [[place] 7.5-325] 1 tab PO Q6HR PRN 02/12/18 [History] Lisinopril [Zestril] 20 mg PO DAILY 02/12/18 [History] Ipratropium-Albuterol Nebulize [Duoneb 0.5 mg-3 mg/3 ml Soln] 3 ml INHALATION RT -QID #120 ampul.neb 04/26/18 [Rx] Follow up Appointment(s)/Referral(s): [facility], [NON-STAFF] - Malcolm Degroot MD [Primary Care Provider] - 1 Week Discharge Disposition: HOME WITH HOSPICE
[2018-04-26] MEDS: HYDROcodone/APAP 7.5-325MG 1 EACH TAB PO PRN (07:48)
[2018-04-26 07:50] LABS: Glucose,Whole Blood 76 mg/dL (75-99)
[2018-04-26] MEDS: IPRATROPIUM-ALBUTEROL 3 ML NEB INHALATION SCH (07:54)
[2018-04-26] MEDS: ESTRADIOL 0.5 MG TAB PO SCH (09:53)
[2018-04-26] MEDS: PANTOPRAZOLE 40 MG/10 ML VIAL IVP SCH (09:53)
[2018-04-26 10:23] LABS: ALT 42 U/L (9-52); AST 27 U/L (14-36); Albumin 2.6 g/dL (3.5-5.0); Alkaline Phosphatase 124 U/L (38-126); Amylase 245 U/L (30-110); Anion Gap 6 mmol/L; Blood Urea Nitrogen 3 mg/dL (7-17); Calcium 7.9 mg/dL (8.4-10.2); Carbon Dioxide 19 mmol/L (22-30); Chloride 113 mmol/L (98-107); Glucose 79 mg/dL (74-99); Lipase 464 U/L (23-300); Potassium 3.4 mmol/L (3.5-5.1); Sodium 138 mmol/L (137-145); Total Bilirubin 0.3 mg/dL (0.2-1.3); Total Protein 5.1 g/dL (6.3-8.2)
[2018-04-26 10:28] LABS: Basophils % (A) 0 %; Eosinophils # (A) 0.1 k/uL (0-0.7); Eosinophils % (A) 1 %; HCT 38.8 % (34.0-46.0); HGB 12.2 gm/dL (11.4-16.0); Hypochromasia Slight; Lymphocytes # (A) 0.8 k/uL (1.0-4.8); Lymphocytes % (A) 6 %; MCH 34.6 pg (25.0-35.0); MCHC 31.5 g/dL (31.0-37.0); MCV 109.9 fL (80.0-100.0); Macrocytosis Marked; Mean Platelet Volume 8.5; Monocytes # (A) 0.5 k/uL (0-1.0); Monocytes % (A) 4 %; Neutrophils # (A) 11.7 k/uL (1.3-7.7); Neutrophils % (A) 89 %; Platelet Count 313 k/uL (150-450); RBC 3.53 m/uL (3.80-5.40); RDW 13.5 % (11.5-15.5); WBC 13.2 k/uL (3.8-10.6)
== END 2018-04-26 11:08 | disposition hospice, home (50) | DRG 438 ==
LOC: EC 15:26 → 4SSUR 18:46
PROVIDERS: ADMIT Family Medicine; ATTEND Family Medicine
DX: K85.90 Acute pancreatitis without necrosis or infection, unspecified (principal); E41 Nutritional marasmus; Z68.1 Body mass index [BMI] 19.9 or less, adult; E87.1 Hypo-osmolality and hyponatremia; E16.2 Hypoglycemia, unspecified; F17.210 Nicotine dependence, cigarettes, uncomplicated; R91.8 Other nonspecific abnormal finding of lung field; F41.9 Anxiety disorder, unspecified; J44.9 Chronic obstructive pulmonary disease, unspecified; K86.1 Other chronic pancreatitis; Z51.5 Encounter for palliative care; Z79.890 Hormone replacement therapy; Z79.899 Other long term (current) drug therapy; Z90.710 Acquired absence of both cervix and uterus; Z90.81 Acquired absence of spleen; R26.9 Unspecified abnormalities of gait and mobility; D72.829 Elevated white blood cell count, unspecified; Z80.9 Family history of malignant neoplasm, unspecified; Z82.49 Family history of ischemic heart disease and other diseases of the circulatory system; Z88.5 Allergy status to narcotic agent; Z88.0 Allergy status to penicillin; Z88.2 Allergy status to sulfonamides
CPT/HCPCS: 36415; 71045; 80053; 81001; 82150; 83690; 85025; 85610; 85730; 94640; 96361; 96374; 96375; 99284

== ENCOUNTER 2023-06-21 14:32 | Emergency (ER) | payer OTHER ==
[2023-06-21] MEDS ORDERED: KETOROLAC 15 MG/ML 1 ML VIAL IVP STA (14:44)
[2023-06-21 14:56] VITALS: BP 149/98; PULSE 64; RESP 18; TEMP 97.9
--- NOTE | 2023-06-21 15:10 | ED ---
SOB HPI - General Stated Complaint: SOB Time Seen by Provider: 06/21/23 14:33 Source: patient, EMS, RN notes reviewed - History of Present Illness Initial Comments: Patient is a 63-year-old female presented via EMS with a chief complaint of shortness of breath. Patient has a past medical history significant for pancreatitis and lung cancer. Patient is currently on palliative care for lung cancer. Patient states since 3 AM this morning she's been having increasing shortness of breath. Patient also endorses chest pain. Patient states her "pancreas hurts". Patient does not normally wear oxygen at home but does have a nebulizer which her last treatment was about an hour ago without improvement. Patient is endorsing chills. Patient denies any nausea or vomiting and admits to constipation. Patient states she was recently prescribed azithromycin for a sinus infection by her PCP. - Related Data Home Medications Medication Instructions Recorded Confirmed estradioL [Estrace] 2 mg PO DAILY 01/03/14 04/22/18 Montelukast [Singulair] 10 mg PO HS 04/24/16 04/22/18 HYDROcodone/APAP 7.5-325MG [[place] 1 tab PO Q6HR PRN 02/12/18 04/22/18 7.5-325] lisinopriL [Zestril] 20 mg PO DAILY 02/12/18 04/22/18 Previous Rx's Medication Instructions Recorded Ipratropium-Albuterol Nebulize 3 ml INHALATION RT-QID #120 04/26/18 [Duoneb 0.5 mg-3 mg/3 ml Soln] ampul.neb Nirmatrelvir/Ritonavir [Paxlovid See Rx Instructions .ROUTE 06/21/23 2X150 mg-100 mg (Eua)] .COMPLEX #30 tab Allergies Allergy/AdvReac Type Severity Reaction Status Date / Time amoxicillin trihydrate Allergy Nausea & Verified 06/21/23 14:42 [From Augmentin] Vomiting hydromorphone HCl Allergy Nausea & Verified 06/21/23 14:42 [From Dilaudid] Vomiting meperidine HCl [From Demerol] Allergy Nausea & Verified 06/21/23 14:42 Vomiting potassium clavulanate Allergy Nausea & Verified 06/21/23 14:42 [From Augmentin] Vomiting sulfamethoxazole Allergy Nausea & Verified 06/21/23 14:42 [From Bactrim] Vomiting trimethoprim [From Bactrim] Allergy Nausea & Verified 06/21/23 14:42 Vomiting Review of Systems ROS Statement: Those systems with pertinent positive or pertinent negative responses have been documented in the HPI. ROS Other: All systems not noted in ROS Statement are negative. Past Medical History Past Medical History: COPD, Pneumonia Additional Past Medical History / Comment(s): lung cancer now pancreatitis November 2013, History of Any Multi-Drug Resistant Organisms: None Reported Past Surgical History: Cholecystectomy, Hysterectomy Additional Past Surgical History / Comment(s): splenectomy Mar 1983. Reconstruction face, mouth, teeth Mar 1983. Knee Past Anesthesia/Blood Transfusion Reactions: Postoperative Nausea & Vomiting (PONV) Additional Past Anesthesia/Blood Transfusion Reaction / Comment(s): Pt states it depends on what medications were used, varied reactions. Past Psychological History: Anxiety Additional Psychological History / Comment(s): Pt resides with her ex spouse. She is independent. She drives. Past Alcohol Use History: Occasional Additional Past Alcohol Use History / Comment(s): Pt states she started smoking in 1975 and is a ppd smoker. Pt states she drinks beer but states she does not drink more that 7 beers in a week. Past Drug Use History: None Reported - Past Family History Mother Family Medical History: AFIB, Cancer Additional Family Medical History / Comment(s): spondylo General Exam General appearance: alert, in no apparent distress Head exam: Present: atraumatic, normocephalic, normal inspection Neck exam: Present: normal inspection. Absent: tenderness, meningismus, lymphadenopathy Respiratory exam: Present: normal lung sounds bilaterally. Absent: respiratory distress, wheezes, rales, rhonchi, stridor Cardiovascular Exam: Present: regular rate, normal rhythm, normal heart sounds. Absent: systolic murmur, diastolic murmur, rubs, gallop, clicks GI/Abdominal exam: Present: soft, tenderness (epigastric and RUQ), normal bowel sounds. Absent: distended, guarding, rebound, rigid Extremities exam: Present: normal inspection, full ROM, normal capillary refill. Absent: tenderness, pedal edema, joint swelling, calf tenderness Neurological exam: Present: alert, oriented X3, CN II-XII intact Psychiatric exam: Present: normal affect, normal mood Skin exam: Present: warm, dry, intact, normal color. Absent: rash Course Vital Signs 06/21/23 14:33 Temperature 97.9 F Pulse Rate 64 Respiratory 18 Rate Blood Pressure 149/98 O2 Sat by Pulse 100 Oximetry Medical Decision Making - Medical Decision Making Was pt. sent in by a medical professional or institution (HUEY Plummer, WARP TYING MACHINE KNOTTER, urgent c are, hospital, or long term...) When possible be specific @ -No Did you speak to anyone other than the patient for history (EMS, parent, family, police, friend...)? What history was obtained from this source @ -EMS providing some of the HPI Did you review nursing and triage notes (agree or disagree)? Why? @ -I reviewed and agree with nursing and triage notes Were old charts reviewed (outside hosp., previous admission, EMS record, old EKG, old radiological studies, urgent care reports/EKG's, long term records)? Report findings @ -No old charts were reviewed Differential Diagnosis (chest pain, altered mental status, abdominal pain women, abdominal pain men, vaginal bleeding, weakness, fever, dyspnea, syncope, headache, dizziness, GI bleed, back pain, seizure, CVA, palpatations, mental health, musculoskeletal)? @ -Differential Dyspnea: Coronary syndrome, arrhythmia, tamponade, asthma, COPD, pulmonary embolism, pneumonia, pneumothorax, pulmonary effusion, anaphylaxis, diabetic ketoacidosis, flailed chest, pulmonary contusion, diaphragmatic rupture, anemia, neuromuscular, this is not meant to be an all-in clusive list. EKG interpreted by me (3pts min.). @ -As above X-rays interpreted by me (1pt min.). @ -Chest x-ray shows no acute cardiopulmonary process. CT interpreted by me (1pt min.). @ -None done U/S interpreted by me (1pt. min.). @ -None done What testing was considered but not performed or refused? (CT, X-rays, U/S, labs)? Why? @ -None What meds were considered but not given or refused? Why? @ -None Did you discuss the management of the patient with other professionals (professionals i.e. HUEY Plummer, WARP TYING MACHINE KNOTTER, lab, RT, psych nurse, social services director, automatic toe laster, teacher, hydrographical technical officer, employment evaluator/case manager)? Give summary @ -No Was smoking cessation discussed for >3mins.? @ -No Was critical care preformed (if so, how long)? @ -No Were there social determinants of health that impacted care today? How? (Homelessness, low income, unemployed, alcoholism, drug addiction, transportation, low edu. Level, literacy, decrease access to med. care, group home, r ehab)? @ -No Was there de-escalation of care discussed even if they declined (Discuss DNR or withdrawal of care, Hospice)? DNR status @ -No What co-morbidities impacted this encounter? (DM, HTN, Smoking, COPD, CAD, Cancer, CVA, ARF, Chemo, Hep., AIDS, mental health diagnosis, sleep apnea, morbid obesity)? @ -Lung cancer on palliative of care Was patient admitted / discharged? Hospital course, mention meds given and route, prescriptions, significant lab abnormalities, going to OR and other pertinent info. @ -Discharge. Patient is 63-year-old female presenting to the ER via EMS with chief complaint of dyspnea. Upon examination, patient's vital signs are stable. Patient oxygen saturation was 100% on 2 L. Physical exam was significant for right upper quadrant tenderness to palpation. Lungs are clear to auscultation bilaterally. Labs obtained in the ER were unremarkable. Patient did test positive for COVID- 19. Chest x-ray showed no acute cardiopulmonary process. EKG showed sinus bradycardia with no acute ST segment or T-wave abnormalities present. Patient received IV Toradol for pain in the ER. I discussed lab and imaging findings with the patient and her , at bedside. Patient will be prescribed Paxlovid. I advised patient to take OTC tylenol and motrin for fever and pain control. I instructed patient to continue nebulized albuterol treatments daily. Patient states she had enough of the albuterol solution at home and did not need another prescription. Patient's oxygen saturation on room air was 95% at time of discharge. Return parameters were discussed. Patient be discharged in stable condition with follow-up to PCP. Patient expressed understanding and agreement with care plan. Undiagnosed new problem with uncertain prognosis? @ -No Drug Therapy requiring intensive monitoring for toxicity (Heparin, Nitro, Insulin, Cardizem)? @ -No Were any procedures done? @ -No Diagnosis/symptom? @ -COVID-19 Acute, or Chronic, or Acute on Chronic? @ -Acute Uncomplicated (without systemic symptoms) or Complicated (systemic symptoms)? @ -Uncomplicated Side effects of treatment? @ -No Exacerbation, Progression, or Severe Exacerbation? @ -No Poses a threat to life or bodily function? How? (Chest pain, USA, MA, pneumonia, PE, COPD, DKA, ARF, appy, cholecystitis, CVA, Diverticulitis, Homicidal, Suicidal, threat to staff... and all critical care pts) @ -Possibly with lung cancer. - Lab Data Result diagrams: 06/21/23 15:47 06/21/23 15:47 Lab Results 06/21/23 06/21/23 06/21/23 Range/Units 15:47 15:47 15:47 WBC 8.5 (3.8-10.6) k/uL RBC 3.93 (3.80-5.40) m/uL Hgb 13.5 (11.4-16.0) gm/dL Hct 40.6 (34.0-46.0) % MCV 103.3 H (80.0-100.0) fL MCH 34.3 (25.0-35.0) pg MCHC 33.3 (31.0-37.0) g/dL RDW 12.0 (11.5-15.5) % Plt Count 231 (150-450) k/uL MPV 7.5 Macrocytosis Slight Sodium 135 L (137-145) mmol/L Potassium 4.0 (3.5-5.1) mmol/L Chloride 104 (98-107) mmol/L Carbon Dioxide 22 (22-30) mmol/L Anion Gap 9 mmol/L BUN 13 (7-17) mg/dL Creatinine 0.33 L (0.52-1.04) mg/dL Est GFR (CKD-EPI)AfAm >90 (>60 ml/min/1.73 sqM) Est GFR (CKD-EPI)NonAf >90 (>60 ml/min/1.73 sqM) Glucose 96 (74-99) mg/dL Plasma Lactic Acid Pantera 1.3 (0.7-2.0) mmol/L Calcium 8.7 (8.4-10.2) mg/dL Total Bilirubin 0.2 (0.2-1.3) mg/dL AST 27 (14-36) U/L ALT 17 (4-34) U/L Alkaline Phosphatase 72 (38-126) U/L NT-Pro-B Natriuret Pep 532 pg/mL Total Protein 6.1 L (6.3-8.2) g/dL Albumin 3.3 L (3.5-5.0) g/dL Amylase 105 (30-110) U/L Lipase 196 (23-300) U/L Influenza Type A (PCR) (Not Detectd) Influenza Type B (PCR) (Not Detectd) RSV (PCR) (Not Detectd) SARS-CoV-2 (PCR) (Not Detectd) 06/21/23 Range/Units 15:47 WBC (3.8-10.6) k/uL RBC (3.80-5.40) m/uL Hgb (11.4-16.0) gm/dL Hct (34.0-46.0) % MCV (80.0-100.0) fL MCH (25.0-35.0) pg MCHC (31.0-37.0) g/dL RDW (11.5-15.5) % Plt Count (150-450) k/uL MPV Macrocytosis Sodium (137-145) mmol/L Potassium (3.5-5.1) mmol/L Chloride (98-107) mmol/L Carbon Dioxide (22-30) mmol/L Anion Gap mmol/L BUN (7-17) mg/dL Creatinine (0.52-1.04) mg/dL Est GFR (CKD-EPI)AfAm (>60 ml/min/1.73 sqM) Est GFR (CKD-EPI)NonAf (>60 ml/min/1.73 sqM) Glucose (74-99) mg/dL Plasma Lactic Acid Pantera (0.7-2.0) mmol/L Calcium (8.4-10.2) mg/dL Total Bilirubin (0.2-1.3) mg/dL AST (14-36) U/L ALT (4-34) U/L Alkaline Phosphatase (38-126) U/L NT-Pro-B Natriuret Pep pg/mL Total Protein (6.3-8.2) g/dL Albumin (3.5-5.0) g/dL Amylase (30-110) U/L Lipase (23-300) U/L Influenza Type A (PCR) Not Detected (Not Detectd) Influenza Type B (PCR) Not Detected (Not Detectd) RSV (PCR) Not Detected (Not Detectd) SARS-CoV-2 (PCR) Detected A (Not Detectd) - EKG Data -: EKG Interpreted by Me EKG Comments: EKG taken at 15:03 shows sinus bradycardia with no acute ST segment or T-wave abnormalities noted. Ventricular rate 56, MI interval 128, QRS duration 77, QT/QTC 425/417. - Radiology Data Radiology results: report reviewed, image reviewed Disposition Clinical Impression: COVID-19 Disposition: HOME SELF-CARE Condition: Stable Additional Instructions: Please return to the Emergency Department if symptoms worsen or any other concerns. Prescriptions: Nirmatrelvir/Ritonavir [Paxlovid 2X150 mg-100 mg (Eua)] See Rx Instructions .ROUTE .COMPLEX #30 tab Is patient prescribed a controlled substance at d/c from ED?: No Referrals: None,Stated [Primary Care Provider] - 1-2 days Time of Disposition: 17:05
[2023-06-21 16:05] LABS: HCT 40.6 % (34.0-46.0); HGB 13.5 gm/dL (11.4-16.0); MCH 34.3 pg (25.0-35.0); MCHC 33.3 g/dL (31.0-37.0); MCV 103.3 fL (80.0-100.0); Macrocytosis Slight; Mean Platelet Volume 7.5; Platelet Count 231 k/uL (150-450); RBC 3.93 m/uL (3.80-5.40); WBC 8.5 k/uL (3.8-10.6)
[2023-06-21 16:16] LABS: ALT 17 U/L (4-34); AST 27 U/L (14-36); African American GFR (CKD) >90 (>60 ml/min/1.73 sqM); Albumin 3.3 g/dL (3.5-5.0); Alkaline Phosphatase 72 U/L (38-126); Amylase 105 U/L (30-110); Anion Gap 9 mmol/L; Blood Urea Nitrogen 13 mg/dL (7-17); Calcium 8.7 mg/dL (8.4-10.2); Carbon Dioxide 22 mmol/L (22-30); Chloride 104 mmol/L (98-107); Glucose 96 mg/dL (74-99); Lipase 196 U/L (23-300); Non-African American GFR(CKD) >90 (>60 ml/min/1.73 sqM); Sodium 135 mmol/L (137-145); Total Bilirubin 0.2 mg/dL (0.2-1.3); Total Protein 6.1 g/dL (6.3-8.2)
[2023-06-21 16:24] LABS: NT-Pro-B-Type Natriuretic Pept 532 pg/mL
--- NOTE | 2023-06-21 16:31 | XR ---
EXAMINATION TYPE: XR chest 2V DATE OF EXAM: 06/21/2023 COMPARISON: 01/05/2014 HISTORY: Shortness of breath TECHNIQUE: Frontal and lateral views of the chest are obtained. FINDINGS: There is hyperinflation lungs and flattening the diaphragm. There is mild pleural-parenchymal changes in the lung apices. The findings are consistent with marked COPD There is no airspace consolidation. There is no pleural effusion or pneumothorax. Heart and pulmonary vasculature are normal. The osseous structures are intact. IMPRESSION: 1. Marked COPD 2. No acute cardiopulmonary disease.
== END 2023-06-21 17:26 | disposition home or self-care (01) ==
LOC: EC 14:32
DX: U07.1 COVID-19 (principal); R00.1 Bradycardia, unspecified; J44.9 Chronic obstructive pulmonary disease, unspecified; F41.9 Anxiety disorder, unspecified; Z88.8 Allergy status to other drugs, medicaments and biological substances; Z88.2 Allergy status to sulfonamides; Z88.0 Allergy status to penicillin; Z79.899 Other long term (current) drug therapy
CPT/HCPCS: 36415; 93005; 83880; 80053; 82150; 83605; 83690; 85027; 87636; 71046; 99285; 96374; J1885

== ENCOUNTER 2023-06-25 09:49 | Emergency (ER) | payer OTHER ==
[2023-06-25 10:29] VITALS: BP 132/82; PULSE 71; RESP 20; TEMP 98.4
[2023-06-25] MEDS ORDERED: HYDROmorphone 0.5 MG/0.5 ML SYRINGE IVP STA (10:30)
[2023-06-25] MEDS ORDERED: SODIUM CHLORIDE 0.9% 1,000 ML IV STA (10:30)
[2023-06-25] MEDS ORDERED: ONDANSETRON 4 MG/2 ML VIAL IVP STA (10:30)
[2023-06-25] MEDS ORDERED: KETOROLAC 15 MG/ML 1 ML VIAL IVP STA (10:34)
--- NOTE | 2023-06-25 10:38 | ED ---
SOB HPI - General Stated Complaint: Covid Time Seen by Provider: 06/25/23 10:35 Source: patient, family, RN notes reviewed Mode of arrival: wheelchair Limitations: no limitations - History of Present Illness Initial Comments: Patient is a 63-year-old female presented ER with chief complaint of shortness of breath. Patient was recently diagnosed was COVID-19 and was started on P axlovid. Patient states her last dose of Paxlovid was today. Patient denies any fevers at home. Patient states her belly is also hurting stating she has "pancreatitis ". Patient is currently on palliative care for lung cancer. Patient reports she has not been able to eat or drink anything and she is extremely dehydrated. - Related Data Home Medications Medication Instructions Recorded Confirmed estradioL [Estrace] 2 mg PO DAILY 01/03/14 04/22/18 Montelukast [Singulair] 10 mg PO HS 04/24/16 04/22/18 HYDROcodone/APAP 7.5-325MG [[place] 1 tab PO Q6HR PRN 02/12/18 04/22/18 7.5-325] lisinopriL [Zestril] 20 mg PO DAILY 02/12/18 04/22/18 Previous Rx's Medication Instructions Recorded Ipratropium-Albuterol Nebulize 3 ml INHALATION RT-QID #120 04/26/18 [Duoneb 0.5 mg-3 mg/3 ml Soln] ampul.neb Nirmatrelvir/Ritonavir [Paxlovid See Rx Instructions .ROUTE 06/21/23 2X150 mg-100 mg (Eua)] .COMPLEX #30 tab Allergies Allergy/AdvReac Type Severity Reaction Status Date / Time amoxicillin trihydrate Allergy Nausea & Verified 06/21/23 14:42 [From Augmentin] Vomiting hydromorphone HCl Allergy Nausea & Verified 06/21/23 14:42 [From Dilaudid] Vomiting meperidine HCl [From Demerol] Allergy Nausea & Verified 06/21/23 14:42 Vomiting potassium clavulanate Allergy Nausea & Verified 06/21/23 14:42 [From Augmentin] Vomiting sulfamethoxazole Allergy Nausea & Verified 06/21/23 14:42 [From Bactrim] Vomiting trimethoprim [From Bactrim] Allergy Nausea & Verified 06/21/23 14:42 Vomiting Review of Systems ROS Statement: Those systems with pertinent positive or pertinent negative responses have been documented in the HPI. ROS Other: All systems not noted in ROS Statement are negative. Past Medical History Past Medical History: COPD, Pneumonia Additional Past Medical History / Comment(s): lung cancer now pancreatitis November 2013, History of Any Multi-Drug Resistant Organisms: None Reported Past Surgical History: Cholecystectomy, Hysterectomy Additional Past Surgical History / Comment(s): splenectomy Mar 1983. Reconstruction face, mouth, teeth Mar 1983. Knee Past Anesthesia/Blood Transfusion Reactions: Postoperative Nausea & Vomiting (PONV) Additional Past Anesthesia/Blood Transfusion Reaction / Comment(s): Pt states it depends on what medications were used, varied reactions. Past Psychological History: Anxiety Smoking Status: Former smoker Past Alcohol Use History: Occasional Past Drug Use History: None Reported - Past Family History Mother Family Medical History: AFIB, Cancer Additional Family Medical History / Comment(s): spondylo General Exam Limitations: no limitations General appearance: alert, in no apparent distress ENT exam: Present: normal exam, mucous membranes moist Neck exam: Present: normal inspection. Absent: tenderness, meningismus, lymphadenopathy Respiratory exam: Present: decreased breath sounds. Absent: respiratory distress, wheezes, rales, rhonchi, stridor Cardiovascular Exam: Present: regular rate, normal rhythm, normal heart sounds. Absent: systolic murmur, diastolic murmur, rubs, gallop, clicks GI/Abdominal exam: Present: soft, tenderness (generalized) Neurological exam: Present: alert, oriented X3, CN II-XII intact Psychiatric exam: Present: normal affect, normal mood Skin exam: Present: warm, dry, intact, normal color. Absent: rash Course Vital Signs 06/25/23 10:13 Temperature 98.4 F Pulse Rate 71 Respiratory 20 Rate Blood Pressure 132/82 O2 Sat by Pulse 96 Oximetry Medical Decision Making - Medical Decision Making Was pt. sent in by a medical professional or institution (, PA, CONTROLS PROJECT ENGINEER, urgent care, hospital, or [facility]...) When possible be specific @ -No Did you speak to anyone other than the patient for history (EMS, parent, family, police, friend...)? What history was obtained from this source @ -No Did you review nursing and triage notes (agree or disagree)? Why? @ -I reviewed and agree with nursing and triage notes Were old charts reviewed (outside hosp., previous admission, EMS record, old EKG, old radiological studies, urgent care reports/EKG's, [facility] records)? Report findings @ -Yes, I reviewed ER visit from 06/21/23. Patient was diagnosed with COVID-19 and prescribed Paxlovid. Differential Diagnosis (chest pain, altered mental status, abdominal pain women, abdominal pain men, vaginal bleeding, weakness, fever, dyspnea, syncope, headache, dizziness, GI bleed, back pain, seizure, CVA, palpatations, mental health, musculoskeletal)? @ -Differential Dyspnea: Coronary syndrome, arrhythmia, tamponade, asthma, COPD, pulmonary embolism, pneumonia, pneumothorax, pulmonary effusion, anaphylaxis, diabetic ketoacidosis, flailed chest, pulmonary contusion, diaphragmatic rupture, anemia, neuromuscular, this is not meant to be an all- inclusive list. EKG interpreted by me (3pts min.). @ -None X-rays interpreted by me (1pt min.). @ -Chest x-ray was significant for COPD changes. There was a nodule left apical pleural thickening with a regular density of the right upper lobe. No focal pneumonia. CT interpreted by me (1pt min.). @ -None done U/S interpreted by me (1pt. min.). @ -None done What testing was considered but not performed or refused? (CT, X-rays, U/S, labs)? Why? @ -None What meds were considered but not given or refused? Why? @ -None Did you discuss the management of the patient with other professionals (professionals i.e. , PA, CONTROLS PROJECT ENGINEER, lab, RT, psych nurse, social worker psychiatric, umbrella frame maker, teacher, security control room officer, behavioral health case manager)? Give summary @ -No Was smoking cessation discussed for >3mins.? @ -No Was critical care preformed (if so, how long)? @ -No Were there social determinants of health that impacted care today? How? (Homelessness, low income, unemployed, alcoholism, drug addiction, transportation, low edu. Level, literacy, decrease access to med. care, longterm, rehab)? @ -No Was there de-escalation of care discussed even if they declined (Discuss DNR or withdrawal of care, Hospice)? DNR status @ -No What co-morbidities impacted this encounter? (DM, HTN, Smoking, COPD, CAD, Cancer, CVA, ARF, Chemo, Hep., AIDS, mental health diagnosis, sleep apnea, morbid obesity)? @ -Lung cancer on palliative care Was patient admitted / discharged? Hospital course, mention meds given and route, prescriptions, significant lab abnormalities, going to OR and other pertinent info. @ -Discharge. Patient is 63-year-old female presented ER with chief complaint of shortness of breath. Upon examination, patient's vital signs are stable. Physical exam was significant for decreased breath sounds bilaterally. No wheezing, rhonchi or rales present. Patient was actively coughing up phlegm during exam. Labs obtained in the ER were significant for WBC 17.0, Na 134, BUN 24, Cr 0.44. Chest x-ray obtained the ER showed COPD changes with no acute focal pneumonia. There was a nodule left apical pleural thickening with a regular density of the right upper lobe. Patient has a history of lung cancer and COPD and is currently on palliative care. Patient received 1 L of IV fluids and IV Toradol in the ER. I discussed with patient laboratory and x-ray findings. I advised her to complete full course of Paxlovid and use OTC tylenol and motrin for fever and pain control. I discussed with the patient to increase her water intake. I also advised her to continue using her nebulized albuterol treatments for shortness of breath. Return parameters were discussed. Patient will be discharged in stable condition with follow-up to PCP. Patient expressed understanding and agreement with care plan. Undiagnosed new problem with uncertain prognosis? @ -No Drug Therapy requiring intensive monitoring for toxicity (Heparin, Nitro, Insulin, Cardizem)? @ -No Were any procedures done? @ -No Diagnosis/symptom? @ -COVID-19 Acute, or Chronic, or Acute on Chronic? @ -Acute Uncomplicated (without systemic symptoms) or Complicated (systemic symptoms)? @ -Uncomplicated Side effects of treatment? @ -No Exacerbation, Progression, or Severe Exacerbation? @ -No Poses a threat to life or bodily function? How? (Chest pain, USA, MA, pneumonia, PE, COPD, DKA, ARF, appy, cholecystitis, CVA, Diverticulitis, Homicidal, Suicidal, threat to staff... and all critical care pts) @ -No - Lab Data Result diagrams: 06/25/23 11:10 06/25/23 11:10 Lab Results 06/25/23 06/25/23 Range/Units 11:10 11:10 WBC 17.0 H (3.8-10.6) k/uL RBC 4.55 (3.80-5.40) m/uL Hgb 15.8 (11.4-16.0) gm/dL Hct 47.4 H (34.0-46.0) % MCV 104.2 H (80.0-100.0) fL MCH 34.7 (25.0-35.0) pg MCHC 33.3 (31.0-37.0) g/dL RDW 12.1 (11.5-15.5) % Plt Count 345 (150-450) k/uL MPV 7.3 Macrocytosis Slight Sodium 134 L (137-145) mmol/L Potassium 3.9 (3.5-5.1) mmol/L Chloride 103 (98-107) mmol/L Carbon Dioxide 20 L (22-30) mmol/L Anion Gap 11 mmol/L BUN 24 H (7-17) mg/dL Creatinine 0.44 L (0.52-1.04) mg/dL Est GFR (CKD-EPI)AfAm >90 (>60 ml/min/1.73 sqM) Est GFR (CKD-EPI)NonAf >90 (>60 ml/min/1.73 sqM) Glucose 101 H (74-99) mg/dL Calcium 8.0 L (8.4-10.2) mg/dL Total Bilirubin 0.5 (0.2-1.3) mg/dL AST 33 (14-36) U/L ALT 21 (4-34) U/L Alkaline Phosphatase 83 (38-126) U/L Total Protein 6.0 L (6.3-8.2) g/dL Albumin 3.3 L (3.5-5.0) g/dL - Radiology Data Radiology results: report reviewed, image reviewed Disposition Clinical Impression: COVID-19 Disposition: HOME SELF-CARE Condition: Stable Instructions (If sedation given, give patient instructions): How to Recover from COVID-19 at Home (ED) Additional Instructions: Please complete prescribed Paxlovid. Use [id number] Tylenol and Motrin f or fever control. Please return to the Emergency Department if symptoms worsen o r any other concerns. Is patient prescribed a controlled substance at d/c from ED?: No Referrals: None,Stated [Primary Care Provider] - 1-2 days Time of Disposition: 11:59
--- NOTE | 2023-06-25 11:13 | XR ---
EXAMINATION TYPE: XR chest 2V DATE OF EXAM: 06/25/2023 COMPARISON: 06/21/2030 TECHNIQUE: PA and lateral views submitted. HISTORY: Cough FINDINGS: The lungs are clear and there is no pneumothorax, pleural effusion, or focal pneumonia. Heart size normal and no overt failure. Osseous structures demonstrate hypertrophic and degenerative changes of the spine. Diffuse emphysematous changes. There is biapical pleural thickening with a nodular compone nt in the left upper lobe. Vague ill-defined density in the right upper lobe. IMPRESSION: 1. COPD with nodular left apical pleural thickening and vague irregular density right upper lobe. No focal pneumonia. Recommend short-term follow-up CT of the chest to exclude pulmonary nodule.
[2023-06-25 11:15] LABS: HCT 47.4 % (34.0-46.0); HGB 15.8 gm/dL (11.4-16.0); MCH 34.7 pg (25.0-35.0); MCHC 33.3 g/dL (31.0-37.0); MCV 104.2 fL (80.0-100.0); Macrocytosis Slight; Mean Platelet Volume 7.3; Platelet Count 345 k/uL (150-450); RBC 4.55 m/uL (3.80-5.40); RDW 12.1 % (11.5-15.5)
[2023-06-25 11:29] LABS: ALT 21 U/L (4-34); AST 33 U/L (14-36); African American GFR (CKD) >90 (>60 ml/min/1.73 sqM); Albumin 3.3 g/dL (3.5-5.0); Alkaline Phosphatase 83 U/L (38-126); Anion Gap 11 mmol/L; Blood Urea Nitrogen 24 mg/dL (7-17); Carbon Dioxide 20 mmol/L (22-30); Chloride 103 mmol/L (98-107); Glucose 101 mg/dL (74-99); Non-African American GFR(CKD) >90 (>60 ml/min/1.73 sqM); Potassium 3.9 mmol/L (3.5-5.1); Sodium 134 mmol/L (137-145); Total Bilirubin 0.5 mg/dL (0.2-1.3)
== END 2023-06-25 12:39 | disposition home or self-care (01) ==
LOC: EC 09:49
DX: U07.1 COVID-19 (principal); J44.9 Chronic obstructive pulmonary disease, unspecified; Z87.891 Personal history of nicotine dependence; Z86.59 Personal history of other mental and behavioral disorders; Z88.0 Allergy status to penicillin; Z88.2 Allergy status to sulfonamides; Z88.5 Allergy status to narcotic agent; Z88.8 Allergy status to other drugs, medicaments and biological substances; Z90.49 Acquired absence of other specified parts of digestive tract
CPT/HCPCS: 99285; 96374; 96375 ×2; 96361; 36415; 80053; 85027; 71046; J2405; J1885

== ENCOUNTER 2023-12-11 19:24 | Emergency (ER) | payer OTHER ==
[2023-12-11 19:31] VITALS: TEMP 97.8
--- NOTE | 2023-12-11 20:07 | ED ---
Abdominal Pain HPI - General Chief Complaint: Abdominal Pain Stated Complaint: Abd pain Time Seen by Provider: 12/11/23 19:40 Source: patient, RN notes reviewed Mode of arrival: wheelchair Limitations: no limitations - History of Present Illness Initial Comments: THis is a 63-year-old female with a past history of lung cancer on palliative treatment who presents emergency department chief complaint of epigastric pain over the past week. That this pain radiates into her back and she also has been having symptoms of nausea and vomiting and decreased appetite. Endorses an episode of diarrhea today. Patient states that she has a history of pancreati tis and has been hospitalized for this in the past. Denies fevers, chest pain or pressure. Patient has a chronic productive cough that is unchanged from baseline. - Related Data Home Medications Medication Instructions Recorded Confirmed estradioL [Estrace] 2 mg PO DAILY 01/03/14 04/22/18 Montelukast [Singulair] 10 mg PO HS 04/24/16 04/22/18 HYDROcodone/APAP 7.5-325MG [Decker 1 tab PO Q6HR PRN 02/12/18 04/22/18 7.5-325] lisinopriL [Zestril] 20 mg PO DAILY 02/12/18 04/22/18 Previous Rx's Medication Instructions Recorded Ipratropium-Albuterol Nebulize 3 ml INHALATION RT-QID #120 04/26/18 [Duoneb 0.5 mg-3 mg/3 ml Soln] ampul.neb Nirmatrelvir/Ritonavir [Paxlovid See Rx Instructions .ROUTE 06/21/23 2X150 mg-100 mg (Eua)] .COMPLEX #30 tab Omeprazole [PriLOSEC] 40 mg PO DAILY #14 cap 12/11/23 Allergies Allergy/AdvReac Type Severity Reaction Status Date / Time amoxicillin trihydrate Allergy Nausea & Verified 12/11/23 19:26 [From Augmentin] Vomiting hydromorphone HCl Allergy Nausea & Verified 12/11/23 19:26 [From Dilaudid] Vomiting meperidine HCl [From Demerol] Allergy Nausea & Verified 12/11/23 19:26 Vomiting potassium clavulanate Allergy Nausea & Verified 12/11/23 19:26 [From Augmentin] Vomiting sulfamethoxazole Allergy Nausea & Verified 12/11/23 19:26 [From Bactrim] Vomiting trimethoprim [From Bactrim] Allergy Nausea & Verified 12/11/23 19:26 Vomiting Review of Systems ROS Statement: Those systems with pertinent positive or pertinent negative responses have been documented in the HPI. ROS Other: All systems not noted in ROS Statement are negative. Past Medical History Past Medical History: COPD, Pneumonia Additional Past Medical History / Comment(s): lung cancer now pancreatitis November 2013, History of Any Multi-Drug Resistant Organisms: None Reported Past Surgical History: Cholecystectomy, Hysterectomy Additional Past Surgical History / Comment(s): splenectomy Mar 1983. Reconstruction face, mouth, teeth Mar 1983. Knee Past Anesthesia/Blood Transfusion Reactions: Postoperative Nausea & Vomiting (PONV) Additional Past Anesthesia/Blood Transfusion Reaction / Comment(s): Pt states it depends on what medications were used, varied reactions. Past Psychological History: Anxiety Smoking Status: Current every day smoker Past Alcohol Use History: None Reported Past Drug Use History: None Reported - Past Family History Mother Family Medical History: AFIB, Cancer Additional Family Medical History / Comment(s): spondylo General Exam - General Exam Comments Initial Comments: Visual Physical Exam Vital signs reviewed General: Well-appearing, nontoxic, no acute distress. Head: Normocephalic, atraumatic Eyes: PERRLA, EOMI ENT: Airway patent Chest: Nonlabored breathing Skin: No visual rash, normal skin tone Neuro: Alert and oriented 3 Musculoskeletal: No gross abnormalities Limitations: no limitations General appearance: alert, cachectic Head exam: Present: atraumatic, normocephalic, normal inspection Eye exam: Present: normal appearance, PERRL, EOMI. Absent: scleral icterus, c onjunctival injection, periorbital swelling ENT exam: Present: normal exam, mucous membranes moist Neck exam: Present: normal inspection. Absent: tenderness, meningismus, lymphadenopathy Respiratory exam: Present: wheezes, rales, decreased breath sounds (bilateral ). Absent: normal lung sounds bilaterally Cardiovascular Exam: Present: regular rate, normal rhythm, normal heart sounds. Absent: systolic murmur, diastolic murmur, rubs, gallop, clicks GI/Abdominal exam: Present: soft, tenderness (epigastric ), normal bowel sounds. Absent: distended, guarding, rebound, rigid Extremities exam: Present: normal inspection, full ROM, normal capillary refill. Absent: tenderness, pedal edema, joint swelling, calf tenderness Back exam: Present: normal inspection Neurological exam: Present: alert, oriented X3, CN II-XII intact Psychiatric exam: Present: normal affect, normal mood Skin exam: Present: warm, dry, intact, normal color. Absent: rash Course Vital Signs 12/11/23 12/11/23 12/11/23 19:26 22:00 22:30 Temperature 97.8 F Pulse Rate 95 56 L Respiratory 18 17 17 Rate Blood Pressure 135/98 122/84 134/75 O2 Sat by Pulse 98 96 Oximetry Medical Decision Making - Medical Decision Making I completed the quick note portion of this chart signed Kim Stewart PA-C Was pt. sent in by a medical professional or institution ([facility], [facility], urgent care, hospital, or correction...) When possible be specific @ -No Did you speak to anyone other than the patient for history (EMS, parent, family, police, friend...)? What history was obtained from this source @ -No Did you review nursing and triage notes (agree or disagree)? Why? @ -I reviewed and agree with nursing and triage notes Were old charts reviewed (outside hosp., previous admission, EMS record, old EKG, old radiological studies, urgent care reports/EKG's, correction records)? Report findings @ -Reviewed the patient's chart note from 06/25/2023 where she reported to the emergency department for complaints of shortness of breath after diagnosis of COVID discharged home in stable condition. Differential Diagnosis (chest pain, altered mental status, abdominal pain women, abdominal pain men, vaginal bleeding, weakness, fever, dyspnea, syncope, headache, dizziness, GI bleed, back pain, seizure, CVA, palpatations, mental health, musculoskeletal)? @ -Differential Abdominal Pain Women: Appendicitis, Cholecystitis, diverticulosis, ischemic bowel, pancreatitis, hepatitis, UTI, gastroenteritis, AAA, incarcerated hernia, bowel obstruction, constipation, inflammatory bowel, hepatitis, peptic ulcer disease, splenic infarction, perforated viscus, vulvitis, ovarian torsion, PID, kidney stone, placenta abruption, this is not meant to be an all-inclusive list. EKG interpreted by me (3pts min.). @ -None X-rays interpreted by me (1pt min.). @ -None done CT interpreted by me (1pt min.). @ -CT of the abdomen pelvis with contrast reveals hyperemia of the gastric mucosa and duodenum correlation with gastritis and duodenitis, no pancreatic abnormalities noted. U/S interpreted by me (1pt. min.). @ -None done What testing was considered but not performed or refused? (CT, X-rays, U/S, labs)? Why? @ -None What meds were considered but not given or refused? Why? @ -None Did you discuss the management of the patient with other professionals (professionals i.e. , PA, [facility], lab, RT, psych nurse, social insurance adviser, master cook, teacher, parking regulation enforcement officer, wrapper caser)? Give summary @ -No Was smoking cessation discussed for >3mins.? @ -No Was critical care preformed (if so, how long)? @ -No Were there social determinants of health that impacted care today? How? (Homelessness, low income, unemployed, alcoholism, drug addiction, transportation, low edu. Level, literacy, decrease access to med. care, long term, rehab)? @ -No Was there de-escalation of care discussed even if they declined (Discuss DNR or withdrawal of care, Hospice)? DNR status @ -No What co-morbidities impacted this encounter? (DM, HTN, Smoking, COPD, CAD, Cancer, CVA, ARF, Chemo, Hep., AIDS, mental health diagnosis, sleep apnea, morbid obesity)? @ -Lung cancer, COPD, smoking Was patient admitted / discharged? Hospital course, mention meds given and route, prescriptions, significant lab abnormalities, going to OR and other pertinent info. @ -63-year-old female with epigastric pain. On examination patient is cachectic and malnourished with clinical signs of dehydration. Additionally her abdomen has equal bowel sounds heard throughout with tenderness noted over the epigastric region to palpation. No signs of rigidity. Patient will be symptomatically treated with IV fluids, IV Zofran, and IV pain medication. Additionally she will be sent for a CT of the abdomen pelvis with contrast pending serum creatinine and BUN. Patient is in agreement with this. interpetation of labs reveals mild leukocytosis of 12.5 elevated neutrophils of 9.3 elevated MCV of 103.1. CMP hyponatremia of 133,. mild elevation of pancreatic enzymes including amylase 151 and lipase 373. Evaluation, patient states that abdominal pain has somewhat improved however has returned after CT image therefore additional medication ordered. Results consistent with gastritis and duodenitis. Patient was given a dose of IV Protonix. Additionally she will be sent with a prescription for omeprazole and recommend follow-up with her primary care provider in the next 3 days for further evaluation. Additionally recommend the patient take her pain medication alongside food to limit gastric irritation. All questions answered at bedside and strict return parameters discussed with the patient and she verbalized understanding. Case discussed with Dr. Jensen Undiagnosed new problem with uncertain prognosis? @ -No Drug Therapy requiring intensive monitoring for toxicity (Heparin, Nitro, Insulin, Cardizem)? @ -No Were any procedures done? @ -No Diagnosis/symptom? @ -gastritis and duodenitis Acute, or Chronic, or Acute on Chronic? @ -Acute Uncomplicated (without systemic symptoms) or Complicated (systemic symptoms)? @ -uncomplicated Side effects of treatment? @ -No Exacerbation, Progression, or Severe Exacerbation? @ -No Poses a threat to life or bodily function? How? (Chest pain, [place], [place], pneumonia, PE, COPD, DKA, ARF, appy, cholecystitis, CVA, Diverticulitis, Homicidal, Suicidal, threat to staff... and all critical care pts) @ -No - Lab Data Result diagrams: 12/11/23 20:38 12/11/23 20:38 Lab Results 12/11/23 12/11/23 Range/Units 20:38 20:38 WBC 12.5 H (3.8-10.6) k/uL RBC 4.57 (3.80-5.40) m/uL Hgb 14.8 (11.4-16.0) gm/dL Hct 47.1 H (34.0-46.0) % MCV 103.1 H (80.0-100.0) fL MCH 32.4 (25.0-35.0) pg MCHC 31.4 (31.0-37.0) g/dL RDW 12.6 (11.5-15.5) % Plt Count 363 (150-450) k/uL MPV 6.8 Neutrophils % 75 % Lymphocytes % 19 % Monocytes % 5 % Eosinophils % 1 % Basophils % 0 % Neutrophils # 9.3 H (1.3-7.7) k/uL Lymphocytes # 2.3 (1.0-4.8) k/uL Monocytes # 0.6 (0-1.0) k/uL Eosinophils # 0.1 (0-0.7) k/uL Basophils # 0.1 (0-0.2) k/uL Macrocytosis Slight Sodium 133 L (137-145) mmol/L Potassium 4.4 (3.5-5.1) mmol/L Chloride 103 (98-107) mmol/L Carbon Dioxide 26 (22-30) mmol/L Anion Gap 4 mmol/L BUN 17 (7-17) mg/dL Creatinine 0.49 L (0.52-1.04) mg/dL Est GFR (CKD-EPI)AfAm >90 (>60 ml/min/1.73 sqM) Est GFR (CKD-EPI)NonAf >90 (>60 ml/min/1.73 sqM) Glucose 85 (74-99) mg/dL Calcium 8.8 (8.4-10.2) mg/dL Phosphorus 4.7 H (2.5-4.5) mg/dL Magnesium 2.0 (1.6-2.3) mg/dL Total Bilirubin 0.5 (0.2-1.3) mg/dL AST 19 (14-36) U/L ALT 9 (4-34) U/L Alkaline Phosphatase 103 (38-126) U/L Total Protein 5.9 L (6.3-8.2) g/dL Albumin 3.4 L (3.5-5.0) g/dL Amylase 151 H (30-110) U/L Lipase 373 H (23-300) U/L Disposition Clinical Impression: Duodenitis, Gastritis Disposition: HOME SELF-CARE Condition: Good Instructions (If sedation given, give patient instructions): Gastritis (ED) Additional Instructions: Return to the emergency department if symptoms worsen or improve. Take medication as prescribed. Recommend taking pain medication alongside food to minimize inflammation of the stomach. follow up with your primary care provider in the next 3 days for further evaluation. Prescriptions: Omeprazole [PriLOSEC] 40 mg PO DAILY #14 cap Is patient prescribed a controlled substance at d/c from ED?: No Referrals: None,Stated [Primary Care Provider] - 1-2 days Time of Disposition: 22:14
[2023-12-11] MEDS: SODIUM CHLORIDE 0.9% 1,000 ML IV STA (20:38)
[2023-12-11] MEDS: ONDANSETRON 4 MG/2 ML VIAL IVP STA (20:43)
[2023-12-11 20:45] LABS: Basophils # (A) 0.1 k/uL (0-0.2); Basophils % (A) 0 %; Eosinophils # (A) 0.1 k/uL (0-0.7); Eosinophils % (A) 1 %; HCT 47.1 % (34.0-46.0); HGB 14.8 gm/dL (11.4-16.0); Lymphocytes # (A) 2.3 k/uL (1.0-4.8); Lymphocytes % (A) 19 %; MCH 32.4 pg (25.0-35.0); MCHC 31.4 g/dL (31.0-37.0); MCV 103.1 fL (80.0-100.0); Macrocytosis Slight; Mean Platelet Volume 6.8; Monocytes # (A) 0.6 k/uL (0-1.0); Monocytes % (A) 5 %; Neutrophils # (A) 9.3 k/uL (1.3-7.7); Neutrophils % (A) 75 %; Platelet Count 363 k/uL (150-450); RBC 4.57 m/uL (3.80-5.40); RDW 12.6 % (11.5-15.5); WBC 12.5 k/uL (3.8-10.6)
[2023-12-11] MEDS: MORPHINE SULFATE 4 MG/ML SYRINGE IVP STA (20:45)
[2023-12-11 21:02] LABS: ALT 9 U/L (4-34); AST 19 U/L (14-36); African American GFR (CKD) >90 (>60 ml/min/1.73 sqM); Albumin 3.4 g/dL (3.5-5.0); Alkaline Phosphatase 103 U/L (38-126); Amylase 151 U/L (30-110); Anion Gap 4 mmol/L; Blood Urea Nitrogen 17 mg/dL (7-17); Calcium 8.8 mg/dL (8.4-10.2); Carbon Dioxide 26 mmol/L (22-30); Chloride 103 mmol/L (98-107); Glucose 85 mg/dL (74-99); Lipase 373 U/L (23-300); Non-African American GFR(CKD) >90 (>60 ml/min/1.73 sqM); Phosphorus 4.7 mg/dL (2.5-4.5); Potassium 4.4 mmol/L (3.5-5.1); Sodium 133 mmol/L (137-145); Total Bilirubin 0.5 mg/dL (0.2-1.3); Total Protein 5.9 g/dL (6.3-8.2)
--- NOTE | 2023-12-11 21:54 | CT ---
EXAMINATION TYPE: CT abdomen pelvis w con CT DLP: 259.7 mGycm, Automated exposure control for dose reduction was used. DATE OF EXAM: 12/11/2023 9:26 PM COMPARISON: CT abdomen pelvis most recent from 05/25/2018. CLINICAL INDICATION:Female, 63 years old with history of epigastric abdominal pain with radiation int o back; PT presents with abdomainl pain for 7 days getting progressively worse. Pt has a history of p ancreatitis. PT is on palliative care. TECHNIQUE: Axial CT abdomen pelvis w con;Sagittal and coronal reformats were created on a separate w orkstation. Contrast used:100 mL of Isovue 300 with IV Contrast, (none if empty) Oral contrast used: without Oral Contrast (none if empty) FINDINGS: LOWER CHEST: Unremarkable ABDOMEN LIVER: Unremarkable GALLBLADDER AND BILE DUCTS: Gallbladder is surgically absent with mild intrahepatic and extra hepatic biliary dilatation likely physiologic and a postcholecystectomy change. No evidence of choledocholit hiasis. PANCREAS: Unremarkable. SPLEEN: Unremarkable. ADRENAL GLANDS: Unremarkable. KIDNEYS AND URETERS: No evidence of hydronephrosis or renal calculus. The ureters are unremarkable. PELVIS BLADDER: Unremarkable REPRODUCTIVE: the uterus is not visualized and may be surgically absent or atrophic.. ABDOMEN & PELVIS STOMACH AND BOWEL: No evidence of bowel obstruction. Scattered colonic diverticula. Hyperemia of the gastric mucosa and duodenum. There is narrowing of the duodenum as it crosses over midline due to com pression between the aorta and superior vena cava PERITONEUM/RETROPERITONEUM: No evidence of pneumoperitoneum or free fluid. VASCULATURE: Moderate atherosclerotic calcifications are present throughout the abdominal aorta and i ts branches. No evidence of aortic aneurysm. MUSCULOSKELETAL: No acute osseous abnormalities. Mild disc degeneration changes are present throughou t the thoracolumbar spine. LYMPH NODES: No gross evidence for lymphadenopathy. SOFT TISSUE/ABDOMINAL WALL: Unremarkable IMPRESSION: 1. Paucity of intra-abdominal fat limits evaluation. 2. 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 3. Hyperemia of the gastric mucosa and duodenum correlate for gastritis duodenitis. 4. Clonic diverticulosis. 5. No evidence for obstructive uropathy.
[2023-12-11 22:01] VITALS: PULSE 56; RESP 17
[2023-12-11] MEDS: PANTOPRAZOLE 40 MG/10 ML VIAL IVP STA (22:02)
[2023-12-11] MEDS: MORPHINE SULFATE 2 MG/ML SYRINGE IVP ONE (22:05)
[2023-12-11 22:33] VITALS: BP 134/75
== END 2023-12-11 22:46 | disposition home or self-care (01) ==
LOC: SUPCPDRO 19:24 → EC 19:24
DX: K29.70 Gastritis, unspecified, without bleeding (principal); K29.80 Duodenitis without bleeding; J44.9 Chronic obstructive pulmonary disease, unspecified; C34.90 Malignant neoplasm of unspecified part of unspecified bronchus or lung; F17.200 Nicotine dependence, unspecified, uncomplicated; Z88.0 Allergy status to penicillin; Z88.1 Allergy status to other antibiotic agents; Z88.5 Allergy status to narcotic agent; Z88.2 Allergy status to sulfonamides; Z88.8 Allergy status to other drugs, medicaments and biological substances; Z90.49 Acquired absence of other specified parts of digestive tract
CPT/HCPCS: 36415; 80053; 82150; 83690; 83735; 84100; 85025; 74177; 99284; 96374; 96375 ×2; 96376; J2270 ×2; J2405; C9113; Q9967

== ENCOUNTER 2024-01-25 12:49 | Emergency (ER) | payer OTHER ==
[2024-01-25 12:59] VITALS: TEMP 97.9
--- NOTE | 2024-01-25 13:22 | ED ---
Abdominal Pain HPI - General Chief Complaint: Abdominal Pain Stated Complaint: Nausea Time Seen by Provider: 01/25/24 13:20 Source: patient, RN notes reviewed Mode of arrival: wheelchair Limitations: no limitations - History of Present Illness Initial Comments: 64-year-old female with a past medical history significant for COPD, pancreatitis and lung cancer presenting to the ER with a chief complaint of abdominal pain.Patient reports his been ongoing problem for approximately 6 weeks. She was seen here and diagnosed with constipation and has been taking medication for gas relief. She states over the weekend she started to experience an extreme sharp upper abdominal pain. She endorses associated nausea. She reports a decreased appetite and unable to drink water due to the pain. She does state her stools have been very loose describing it as diarrhea. She does state when she will pass gas she will also pass stool. Denies any bright red blood. Patient is not currently on any cancer treatment and is currently on palliative care due to lung cancer. Patient was sent here by primary care nurse practitioner due to recent 5 pound weight loss within 1 week and concern of obstruction. Patient denies any fevers, chills, chest pain, shortness of breath out of the normal, urinary complaints or peripheral edema. - Related Data Home Medications Medication Instructions Recorded Confirmed estradioL [Estrace] 2 mg PO DAILY 01/03/14 01/25/24 Montelukast [Singulair] 10 mg PO DAILY 04/24/16 01/25/24 HYDROcodone/APAP 7.5-325MG [[place] 2 tab PO TID 02/12/18 01/25/24 7.5-325] Latanoprost [Latanoprost 0.005%] 1 drop BOTH EYES HS 01/25/24 01/25/24 Omeprazole [PriLOSEC] 40 mg PO HS 01/25/24 01/25/24 predniSONE 5 mg PO DAILY 01/25/24 01/25/24 Allergies Allergy/AdvReac Type Severity Reaction Status Date / Time amoxicillin trihydrate Allergy Nausea & Verified 01/25/24 13:57 [From Augmentin] Vomiting hydromorphone HCl Allergy Nausea & Verified 01/25/24 13:57 [From Dilaudid] Vomiting meperidine HCl [From Demerol] Allergy Nausea & Verified 01/25/24 13:57 Vomiting potassium clavulanate Allergy Nausea & Verified 01/25/24 13:57 [From Augmentin] Vomiting sulfamethoxazole Allergy Nausea & Verified 01/25/24 13:57 [From Bactrim] Vomiting trimethoprim [From Bactrim] Allergy Nausea & Verified 01/25/24 13:57 Vomiting Review of Systems ROS Statement: Those systems with pertinent positive or pertinent negative responses have been documented in the HPI. ROS Other: All systems not noted in ROS Statement are negative. Past Medical History Past Medical History: COPD, Pneumonia Additional Past Medical History / Comment(s): lung cancer now pancreatitis November 2013, History of Any Multi-Drug Resistant Organisms: None Reported Past Surgical History: Cholecystectomy, Hysterectomy Additional Past Surgical History / Comment(s): splenectomy Mar 1983. Reconstruction face, mouth, teeth Mar 1983. Knee Past Anesthesia/Blood Transfusion Reactions: Postoperative Nausea & Vomiting (PONV) Additional Past Anesthesia/Blood Transfusion Reaction / Comment(s): Pt states it depends on what medications were used, varied reactions. Past Psychological History: Anxiety Smoking Status: Current every day smoker Past Alcohol Use History: None Reported Past Drug Use History: None Reported - Past Family History Mother Family Medical History: AFIB, Cancer Additional Family Medical History / Comment(s): spondylo General Exam Limitations: no limitations General appearance: cachectic Respiratory exam: Present: rhonchi (course bilaterally) Cardiovascular Exam: Present: regular rate, normal rhythm, normal heart sounds. Absent: systolic murmur, diastolic murmur, rubs, gallop, clicks GI/Abdominal exam: Present: soft, tenderness (upper abdomen), normal bowel sounds. Absent: distended, guarding, rebound, rigid Rectal exam: Present: normal inspection, normal rectal tone Extremities exam: Present: normal inspection, full ROM, normal capillary refill. Absent: tenderness, pedal edema, joint swelling, calf tenderness Neurological exam: Present: alert, oriented X3, CN II-XII intact Skin exam: Present: warm, dry, intact, normal color. Absent: rash Course Vital Signs 01/25/24 12:54 Temperature 97.9 F Pulse Rate 108 H Respiratory 18 Rate Blood Pressure 110/73 O2 Sat by Pulse 98 Oximetry Medical Decision Making - Medical Decision Making Was pt. sent in by a medical professional or institution (, PA, TAPE FASTENER MACHINE OPERATOR, urgent care, hospital, or prison...) When possible be specific @ -Patient sent by PCP for evaluation of abdominal pain. Did you speak to anyone other than the patient for history (EMS, parent, family, police, friend...)? What history was obtained from this source @ -[No] Did you review nursing and triage notes (agree or disagree)? Why? @ -[I reviewed and agree with nursing and triage notes] Were old charts reviewed (outside hosp., previous admission, EMS record, old EKG, old radiological studies, urgent care reports/EKG's, prison records)? Report findings @ -[No old charts were reviewed] Differential Diagnosis (chest pain, altered mental status, abdominal pain women, abdominal pain men, vaginal bleeding, weakness, fever, dyspnea, syncope, headache, dizziness, GI bleed, back pain, seizure, CVA, palpatations, mental health, musculoskeletal)? @ -Differential Abdominal Pain Women: Appendicitis, Cholecystitis, diverticulosis, ischemic bowel, pancreatitis, hepatitis, UTI, gastroenteritis, AAA, incarcerated hernia, bowel obstruction, constipation, inflammatory bowel, hepatitis, peptic ulcer disease, splenic infarction, perforated viscus, vulvitis, ovarian torsion, PID, kidney stone, placenta abruption, this is not meant to be an all-inclusive list EKG interpreted by me (3pts min.). @ -[None] X-rays interpreted by me (1pt min.). @ -[None done] CT interpreted by me (1pt min.). @ -[CT abdomen and pelvis remarkable for large amount of stool within the colon. No other significant abnormality seen.] U/S interpreted by me (1pt. min.). @ -[None done] What testing was considered but not performed or refused? (CT, X-rays, U/S, lab s)? Why? @ -[None] What meds were considered but not given or refused? Why? @ -Enema was considered, patient refused. Did you discuss the management of the patient with other professionals (professionals i.e. , PA, TAPE FASTENER MACHINE OPERATOR, lab, RT, psych nurse, sr. social media & mobile manager, bond underwriter, teacher, targeting acquisition officer, case repairer)? Give summary @ -[No] Was smoking cessation discussed for >3mins.? @ -[No] Was critical care preformed (if so, how long)? @ -[No] Were there social determinants of health that impacted care today? How? (H omelessness, low income, unemployed, alcoholism, drug addiction, transportation, low edu. Level, literacy, decrease access to med. care, group home, rehab)? @ -[No] Was there de-escalation of care discussed even if they declined (Discuss DNR or withdrawal of care, Hospice)? DNR status @ -[No] What co-morbidities impacted this encounter? (DM, HTN, Smoking, COPD, CAD, Cancer, CVA, ARF, Chemo, Hep., AIDS, mental health diagnosis, sleep apnea, morbid obesity)? @ -Lung cancer Was patient admitted / discharged? Hospital course, mention meds given and route, prescriptions, significant lab abnormalities, going to OR and other pertinent info. @ -Discharge. 64-year-old female presented ER with a chief complaint of abdominal pain. History and physical exam completed. Vitals stable. Patient was cachectic on exam and appearing very weak. No signs of respiratory distre ss. Abdominal exam remarkable for normal bowel sounds with tenderness to bilateral upper quadrants. No rebound or guarding. Lung sounds coarse throughout. Laboratory studies obtained nonspecific. Hyponatremia 134 which is chronic in nature. Amylase 263 and lipase 782 also appear to be chronic in nature. Urinalysis showing mild signs of dehydration for which patient received IV fluids in the ER. Patient also received symptomatic treatment with IV morphine and Dilaudid with improvement of symptoms. CT abdomen and pelvis performed to rule out metastatic invasion of colon. CT showing a large amount of stool within the colon with no other significant abnormality. Upon reevaluation, patient resting complaint exam room in no signs of acute distress. Patient reporting improvement of pain. Results discussed with patient, AND answered. I recommended enema prior to discharge for constipation for which patient refused. Patient states she will drink milk of magnesia and performed Fleet enemas when she is at home. Patient stable for discharge at this time. Extremely strict return parameters discussed. Advised close follow-up with PCP in the next 1-2 days. Patient verbally expressed understanding and agreement with care plan. Patient discharged in stable condition. Case discussed with the attending, Dr. Taylor. Undiagnosed new problem with uncertain prognosis? @ -[No] Drug Therapy requiring intensive monitoring for toxicity (Heparin, Nitro, Insulin, Cardizem)? @ -[No] Were any procedures done? @ -[No] Diagnosis/symptom? @ -Constipation Acute, or Chronic, or Acute on Chronic? @ -Acute Uncomplicated (without systemic symptoms) or Complicated (systemic symptoms)? @ -Complicated Side effects of treatment? @ -[No] Exacerbation, Progression, or Severe Exacerbation? @ -[No] Poses a threat to life or bodily function? How? (Chest pain, [place], [place], pneumonia, PE, COPD, DKA, ARF, appy, cholecystitis, CVA, Diverticulitis, Homicidal, Suicidal, threat to staff... and all critical care pts) @ -Yes patient has known lung cancer. - Lab Data Result diagrams: 01/25/24 13:18 01/25/24 13:18 Lab Results 01/25/24 01/25/24 01/25/24 Range/Units 13:18 13:18 13:18 WBC 9.2 (3.8-10.6) k/uL RBC 4.11 (3.80-5.40) m/uL Hgb 13.6 (11.4-16.0) gm/dL Hct 41.9 (34.0-46.0) % MCV 102.0 H (80.0-100.0) fL MCH 33.2 (25.0-35.0) pg MCHC 32.5 (31.0-37.0) g/dL RDW 13.5 (11.5-15.5) % Plt Count 375 (150-450) k/uL MPV 6.8 Neutrophils % 88 % Lymphocytes % 8 % Monocytes % 2 % Eosinophils % 1 % Basophils % 0 % Neutrophils # 8.1 H (1.3-7.7) k/uL Lymphocytes # 0.7 L (1.0-4.8) k/uL Monocytes # 0.2 (0-1.0) k/uL Eosinophils # 0.1 (0-0.7) k/uL Basophils # 0.0 (0-0.2) k/uL Macrocytosis Slight Sodium 134 L (137-145) mmol/L Potassium 3.6 (3.5-5.1) mmol/L Chloride 102 (98-107) mmol/L Carbon Dioxide 27 (22-30) mmol/L Anion Gap 5 mmol/L BUN 25 H (7-17) mg/dL Creatinine 0.46 L (0.52-1.04) mg/dL Est GFR (CKD-EPI)AfAm >90 (>60 ml/min/1.73 sqM) Est GFR (CKD-EPI)NonAf >90 (>60 ml/min/1.73 sqM) Glucose 86 (74-99) mg/dL Plasma Lactic Acid [place]tera 1.2 (0.7-2.0) mmol/L Calcium 8.6 (8.4-10.2) mg/dL Total Bilirubin 0.3 (0.2-1.3) mg/dL AST 16 (14-36) U/L ALT 10 (4-34) U/L Alkaline Phosphatase 98 (38-126) U/L Total Protein 5.7 L (6.3-8.2) g/dL Albumin 3.2 L (3.5-5.0) g/dL Amylase 263 H (30-110) U/L Lipase 782 H (23-300) U/L Urine Color Urine Appearance (Clear) Urine pH (5.0-8.0) Ur Specific [place] (1.001-1.035) Urine Protein (Negative) Urine Glucose (UA) (Negative) Urine Ketones (Negative) Urine Blood (Negative) Urine Nitrite (Negative) Urine Bilirubin (Negative) Urine Urobilinogen (<2.0) mg/dL Ur Leukocyte Esterase (Negative) Urine RBC (0-5) /hpf Urine WBC (0-5) /hpf Ur Squamous Epith Cells (0-4) /hpf Urine Bacteria (None) /hpf Urine Mucus (None) /hpf 01/25/24 Range/Units 13:29 WBC (3.8-10.6) k/uL RBC (3.80-5.40) m/uL Hgb (11.4-16.0) gm/dL Hct (34.0-46.0) % MCV (80.0-100.0) fL MCH (25.0-35.0) pg MCHC (31.0-37.0) g/dL RDW (11.5-15.5) % Plt Count (150-450) k/uL MPV Neutrophils % % Lymphocytes % % Monocytes % % Eosinophils % % Basophils % % Neutrophils # (1.3-7.7) k/uL Lymphocytes # (1.0-4.8) k/uL Monocytes # (0-1.0) k/uL Eosinophils # (0-0.7) k/uL Basophils # (0-0.2) k/uL Macrocytosis Sodium (137-145) mmol/L Potassium (3.5-5.1) mmol/L Chloride (98-107) mmol/L Carbon Dioxide (22-30) mmol/L Anion Gap mmol/L BUN (7-17) mg/dL Creatinine (0.52-1.04) mg/dL Est GFR (CKD-EPI)AfAm (>60 ml/min/1.73 sqM) Est GFR (CKD-EPI)NonAf (>60 ml/min/1.73 sqM) Glucose (74-99) mg/dL Plasma Lactic Acid [place] (0.7-2.0) mmol/L Calcium (8.4-10.2) mg/dL Total Bilirubin (0.2-1.3) mg/dL AST (14-36) U/L ALT (4-34) U/L Alkaline Phosphatase (38-126) U/L Total Protein (6.3-8.2) g/dL Albumin (3.5-5.0) g/dL Amylase (30-110) U/L Lipase (23-300) U/L Urine Color Light Yellow Urine Appearance Clear (Clear) Urine pH 6.0 (5.0-8.0) Ur Specific [place] >1.050 H (1.001-1.035) Urine Protein Trace H (Negative) Urine Glucose (UA) Negative (Negative) Urine Ketones Trace H (Negative) Urine Blood Trace H (Negative) Urine Nitrite Negative (Negative) Urine Bilirubin Negative (Negative) Urine Urobilinogen <2.0 (<2.0) mg/dL Ur Leukocyte Esterase Negative (Negative) Urine RBC 3 (0-5) /hpf Urine WBC 1 (0-5) /hpf Ur Squamous Epith Cells 6 H (0-4) /hpf Urine Bacteria Rare H (None) /hpf Urine Mucus Occasional H (None) /hpf - Radiology Data Radiology results: report reviewed, image reviewed Disposition Clinical Impression: Constipation Disposition: HOME SELF-CARE Condition: Stable Instructions (If sedation given, give patient instructions): Constipation (ED), Fleet Enema (ED) Additional Instructions: Please follow-up with PCP in the next 1-2 days. Return to the ER for any new or worsening concerns. Is patient prescribed a controlled substance at d/c from ED?: No Referrals: None,Stated [Primary Care Provider] - 1-2 days Time of Disposition: 16:24
[2024-01-25] MEDS: SODIUM CHLORIDE 0.9% 500 ML 500 ML IV STA (13:36)
[2024-01-25] MEDS: ONDANSETRON 4 MG/2 ML VIAL IVP STA (13:36)
[2024-01-25] MEDS: MORPHINE SULFATE 4 MG/ML SYRINGE IVP STA (13:37)
[2024-01-25 13:41] LABS: Basophils % (A) 0 %; Eosinophils # (A) 0.1 k/uL (0-0.7); Eosinophils % (A) 1 %; HCT 41.9 % (34.0-46.0); HGB 13.6 gm/dL (11.4-16.0); Lymphocytes # (A) 0.7 k/uL (1.0-4.8); Lymphocytes % (A) 8 %; MCH 33.2 pg (25.0-35.0); MCHC 32.5 g/dL (31.0-37.0); Macrocytosis Slight; Mean Platelet Volume 6.8; Monocytes # (A) 0.2 k/uL (0-1.0); Monocytes % (A) 2 %; Neutrophils # (A) 8.1 k/uL (1.3-7.7); Neutrophils % (A) 88 %; Platelet Count 375 k/uL (150-450); RBC 4.11 m/uL (3.80-5.40); RDW 13.5 % (11.5-15.5); WBC 9.2 k/uL (3.8-10.6)
[2024-01-25 13:50] LABS: ALT 10 U/L (4-34); AST 16 U/L (14-36); African American GFR (CKD) >90 (>60 ml/min/1.73 sqM); Albumin 3.2 g/dL (3.5-5.0); Alkaline Phosphatase 98 U/L (38-126); Amylase 263 U/L (30-110); Anion Gap 5 mmol/L; Blood Urea Nitrogen 25 mg/dL (7-17); Calcium 8.6 mg/dL (8.4-10.2); Carbon Dioxide 27 mmol/L (22-30); Chloride 102 mmol/L (98-107); Glucose 86 mg/dL (74-99); Lipase 782 U/L (23-300); Non-African American GFR(CKD) >90 (>60 ml/min/1.73 sqM); Potassium 3.6 mmol/L (3.5-5.1); Sodium 134 mmol/L (137-145); Total Bilirubin 0.3 mg/dL (0.2-1.3); Total Protein 5.7 g/dL (6.3-8.2)
--- NOTE | 2024-01-25 15:22 | CT ---
EXAMINATION TYPE: CT abdomen pelvis w con DATE OF EXAM: 01/25/2024 COMPARISON: 12/11/2023 HISTORY: pancreatitis/ abd pain CT DLP: 228.1 mGycm Automated exposure control for dose reduction was used. TECHNIQUE: Helical acquisition of images was performed from the lung bases through the pelvis. CONTRAST: Performed without Oral Contrast and with IV Contrast, patient injected with 60ml mL of Isovue 300. FINDINGS: There are emphysematous changes within the lung bases but no infiltrates or effusions. There is surgical absence of the gallbladder. There is mild intrahepatic ductal dilatation moderate to marked dilatation of the pancreatic duct. No definite pancreatic head mass is seen. There are no focal liver masses. There is no splenomegaly. No adrenal masses are seen. There is no solid renal mass or hydronephrosis and there is homogeneous contrast enhancement of the r enal parenchyma. The caliber the abdominal aorta is normal is no retroperitoneal adenopathy or hemorr mao. The bowel loops are normal in caliber and there is no evidence of dilatation or obstruction. No infla mmatory changes are identified in the bowel wall or mesentery. There is no free intraperitoneal air or fluid. No pelvic mass, free fluid, abscess or adenopathy. There is a large amount of stool within the colon. The osseous structures and soft tissues are intact. IMPRESSION: Large amount within the colon with no other significant abnormality seen.
[2024-01-25] MEDS: HYDROmorphone 1 MG/ML 1 ML SYRINGE IVP STA (15:25)
[2024-01-25 15:50] LABS: Appearance,Urine Clear (Clear); Bacteria,Urine Rare /hpf; Bilirubin,Urine Negative (Negative); Blood,Urine Trace (Negative); Color,Urine Light Yellow; Glucose,Urine (UA) Negative (Negative); Ketones,Urine Trace (Negative); Leukocyte Esterase,Urine Negative (Negative); Mucus,Urine Occasional /hpf; Nitrite,Urine Negative (Negative); Protein,Urine Trace (Negative); RBC,Urine 3 /hpf (0-5); Squamous Epithelial Cell,Urine 6 /hpf (0-4); Urobilinogen,Urine <2.0 mg/dL (<2.0); WBC,Urine 1 /hpf (0-5)
[2024-01-25 16:01] LABS: Specific Gravity,Urine >1.050 (1.001-1.035)
[2024-01-25 16:34] VITALS: BP 116/73; PULSE 50; RESP 16
== END 2024-01-25 16:46 | disposition home or self-care (01) ==
LOC: EC 12:49
DX: K59.00 Constipation, unspecified (principal); E86.0 Dehydration; F17.200 Nicotine dependence, unspecified, uncomplicated; Z88.0 Allergy status to penicillin; Z88.1 Allergy status to other antibiotic agents; Z88.2 Allergy status to sulfonamides; Z88.5 Allergy status to narcotic agent; Z85.118 Personal history of other malignant neoplasm of bronchus and lung
CPT/HCPCS: 36415; 80053; 82150; 83605; 83690; 85025; 81001; 74177; 99284; 96374; 96375 ×2; J2270; J2405; J1170; Q9967

== ENCOUNTER 2024-06-12 12:25 | Emergency (ER) | payer OTHER ==
[2024-06-12 12:30] VITALS: TEMP 98.1
[2024-06-12] MEDS: SODIUM CHLORIDE 0.9% 1,000 ML IV STA (13:03)
[2024-06-12] MEDS: KETOROLAC 15 MG/ML 1 ML VIAL IVP STA (13:04)
[2024-06-12] MEDS: ONDANSETRON 4 MG/2 ML VIAL IVP STA (13:04)
[2024-06-12] MEDS: MORPHINE SULFATE 4 MG/ML SYRINGE IVP STA (13:04)
[2024-06-12 13:19] LABS: Basophils % (A) 0 %; Eosinophils # (A) 0.2 k/uL (0-0.7); Eosinophils % (A) 1 %; HCT 37.3 % (34.0-46.0); HGB 11.9 gm/dL (11.4-16.0); Lymphocytes # (A) 0.3 k/uL (1.0-4.8); Lymphocytes % (A) 2 %; MCH 33.4 pg (25.0-35.0); MCV 104.4 fL (80.0-100.0); Macrocytosis Slight; Mean Platelet Volume 7.6; Monocytes # (A) 0.3 k/uL (0-1.0); Monocytes % (A) 2 %; Neutrophils # (A) 16.1 k/uL (1.3-7.7); Neutrophils % (A) 95 %; Platelet Count 352 k/uL (150-450); RBC 3.57 m/uL (3.80-5.40); WBC 16.9 k/uL (3.8-10.6)
--- NOTE | 2024-06-12 13:26 | XR ---
2 view chest HISTORY: Difficulty breathing COMPARISON: 06/25/2023 TECHNIQUE: PA and lateral views chest obtained. FINDINGS: There is marked hyperinflation lungs consistent with COPD unchanged compared to the prior study. The lungs are clear of consolidative, interstitial or masslike opacity. There is no pleural effusion, pleural thickening or pneumothorax. The heart, pulmonary vasculature, mediastinum and maddie are within normal limits. The osseous structures and soft tissues of the thorax are intact. IMPRESSION: 1. Marked COPD. 2. No acute cardiopulmonary disease. [facility], , 06/12/2024 1:24 PM
[2024-06-12 13:39] LABS: ALT 10 U/L (4-34); African American GFR (CKD) >90 (>60 ml/min/1.73 sqM); Amylase 286 U/L (30-110); Anion Gap 6 mmol/L; Blood Urea Nitrogen 28 mg/dL (7-17); Calcium 8.3 mg/dL (8.4-10.2); Carbon Dioxide 24 mmol/L (22-30); Chloride 105 mmol/L (98-107); Glucose 123 mg/dL (74-99); Lipase 547 U/L (23-300); Non-African American GFR(CKD) >90 (>60 ml/min/1.73 sqM); Sodium 135 mmol/L (137-145)
--- NOTE | 2024-06-12 13:46 | CT ---
EXAMINATION TYPE: CT abdomen pelvis w con DATE OF EXAM: 06/12/2024 COMPARISON: 01/25/2024 CLINICAL INDICATION: Female, 64 years old with history of abdominal pain, acute, nonlocalized; PHH, A BD PAIN TECHNIQUE: Performed without Oral Contrast and with IV Contrast, patient injected with 50 mL of Isovue 300. CT DLP: 209.[address] CTDI: mGy Automated exposure control for dose reduction was used. FINDINGS: Evaluation of the abdomen and pelvis is limited due to a paucity of fat. There is a diffuse reticular nodular infiltrate in the left lower lobe which could be infectious or n eoplastic given the history of lung cancer. The visualized right lung base is clear. There is surgical absence of gallbladder. There is mild biliary ductal dilatation and dilatation of t he pancreatic duct as well but no pancreatic mass. There is no focal mass or organomegaly involving the liver, pancreas, spleen or adrenal glands. There is no solid renal mass or hydronephrosis and there is homogeneous contrast enhancement of the r enal parenchyma. The caliber the abdominal aorta is normal is no retroperitoneal adenopathy or hemorr mao. There is marked atherosclerotic calcification of the infrarenal distal aorta and iliac vessels. The bowel loops are normal in caliber and there is no evidence of dilatation or obstruction. No infla mmatory changes are identified in the bowel wall or mesentery. There is a large amount of dense stool throughout the colon and within the rectum There is no free intraperitoneal air or fluid. No pelvic mass, free fluid, abscess or adenopathy. The osseous structures and soft tissues are intact. IMPRESSION: 1. Reticular nodular infiltrate in the left lung base could represent an acute inflammatory process o r neoplasm. 2. No acute changes within the abdomen and pelvis but the exam is limited due to a paucity of abdomin al and pelvic fat. 3. no bowel obstruction but marked dense stool throughout the colon and rectum [facility], , 06/12/2024 1:44 PM
[2024-06-12 14:02] LABS: AST 18 U/L (14-36); Albumin 3.1 g/dL (3.5-5.0); Magnesium 2.1 mg/dL (1.6-2.3); Potassium 4.6 mmol/L (3.5-5.1); Total Bilirubin 0.6 mg/dL (0.2-1.3); Total Protein 5.9 g/dL (6.3-8.2)
[2024-06-12 14:03] LABS: Alkaline Phosphatase 75 U/L (38-126)
--- NOTE | 2024-06-12 14:14 | ED ---
Abdominal Pain HPI - General Chief Complaint: Abdominal Pain Stated Complaint: Constipation, loss of appetite Time Seen by Provider: 06/12/24 12:32 Source: patient, RN notes reviewed Mode of arrival: wheelchair Limitations: no limitations - History of Present Illness Initial Comments: This is a 64-year-old female who presents to the emergency department for weakness, abdominal pain, and constipation. Patient has a history of lung cancer and is currently receiving palliative treatment. Not currently on any chemotherapy or radiation. States that she is likely going to transition to hospice soon. Over the last several days she has been unable to eat due to abdominal pain and has not had a bowel movement in a few days. States that she feels like she needs to go but cannot push due to her weakness. She has occasional nausea associated with this. States that she has been using [id number] suppositories, which have not been helpful. She has taken milk of magnesia in the past which she states is helpful. Additionally, she does report worsening shortness of breath and is concerned about having pneumonia. MD Complaint: abdominal pain - Related Data Home Medications Medication Instructions Recorded Confirmed estradioL [Estrace] 2 mg PO DAILY 01/03/14 01/25/24 Montelukast [Singulair] 10 mg PO DAILY 04/24/16 01/25/24 HYDROcodone/APAP 7.5-325MG [[place] 2 tab PO TID 02/12/18 01/25/24 7.5-325] Latanoprost [Latanoprost 0.005%] 1 drop BOTH EYES HS 01/25/24 01/25/24 Omeprazole [PriLOSEC] 40 mg PO HS 01/25/24 01/25/24 predniSONE 5 mg PO DAILY 01/25/24 01/25/24 Previous Rx's Medication Instructions Recorded Lactulose [Cephulac] 20 gm PO DAILY PRN #473 ml 06/12/24 Allergies Allergy/AdvReac Type Severity Reaction Status Date / Time amoxicillin trihydrate Allergy Nausea & Verified 06/12/24 12:27 [From Augmentin] Vomiting hydromorphone HCl Allergy Nausea & Verified 06/12/24 12:27 [From Dilaudid] Vomiting meperidine HCl [From Demerol] Allergy Nausea & Verified 06/12/24 12:27 Vomiting potassium clavulanate Allergy Nausea & Verified 06/12/24 12:27 [From Augmentin] Vomiting sulfamethoxazole Allergy Nausea & Verified 06/12/24 12:27 [From Bactrim] Vomiting trimethoprim [From Bactrim] Allergy Nausea & Verified 06/12/24 12:27 Vomiting Review of Systems ROS Statement: Those systems with pertinent positive or pertinent negative responses have been documented in the HPI. ROS Other: All systems not noted in ROS Statement are negative. Past Medical History Past Medical History: COPD, Pneumonia Additional Past Medical History / Comment(s): lung cancer now pancreatitis November 2013, History of Any Multi-Drug Resistant Organisms: None Reported Past Surgical History: Cholecystectomy, Hysterectomy Additional Past Surgical History / Comment(s): splenectomy Mar 1983. Reconstruction face, mouth, teeth Mar 1983. Knee Past Anesthesia/Blood Transfusion Reactions: Postoperative Nausea & Vomiting (PONV) Additional Past Anesthesia/Blood Transfusion Reaction / Comment(s): Pt states it depends on what medications were used, varied reactions. Past Psychological History: Anxiety Smoking Status: Current every day smoker Past Alcohol Use History: None Reported Past Drug Use History: None Reported - Past Family History Mother Family Medical History: AFIB, Cancer Additional Family Medical History / Comment(s): spondylo General Exam Limitations: no limitations General appearance: alert, in no apparent distress Head exam: Present: atraumatic, normocephalic, normal inspection Respiratory exam: Present: rhonchi, decreased breath sounds, prolonged expiratory Cardiovascular Exam: Present: regular rate, normal rhythm, normal heart sounds. Absent: systolic murmur, diastolic murmur, rubs, gallop, clicks GI/Abdominal exam: Present: soft, tenderness (diffuse), normal bowel sounds. Absent: distended Neurological exam: Present: alert, oriented X3, CN II-XII intact Psychiatric exam: Present: normal affect, normal mood Skin exam: Present: warm, dry, intact, normal color. Absent: rash Course Vital Signs 06/12/24 06/12/24 12:28 16:20 Temperature 98.1 F Pulse Rate 95 73 Respiratory 95 H 19 Rate Blood Pressure 112/78 115/76 O2 Sat by Pulse 97 94 L Oximetry Medical Decision Making - Medical Decision Making This is a 64-year-old female who presents to the emergency department for weakness and abdominal pain. Was pt. sent in by a medical professional or institution? @ -No Did you speak to anyone other than the patient for history? @ -Now Did you review nursing and triage notes? @ -Yes, and I agree, it is accurate with regards to the patient's symptoms. Were old charts reviewed? @ -No Differential Diagnosis? @ -Differential Abdominal Pain Women: Appendicitis, Cholecystitis, diverticulosis, ischemic bowel, pancreatitis, hepatitis, UTI, gastroenteritis, AAA, incarcerated hernia, bowel obstruction, constipation, inflammatory bowel, hepatitis, peptic ulcer disease, splenic infarction, perforated viscus, vulvitis, ovarian torsion, PID, kidney stone, placenta abruption, this is not meant to be an all-inclusive list EKG interpreted by me (3pts min.)? @ -EKG interpreted by me demonstrating the following: Sinus rhythm. Ventricular rate 80 bpm, ME interval 111 ms, QRS duration 78 ms, QTc 395 ms. X-rays interpreted by me (1pt min.)? @ -Chest x-ray obtained, my interpretation identifies no localized consolidations or infiltrates. CT interpreted by me (1pt min.)? @ -CT scan of the abdomen and pelvis obtained. My interpretation identifies stool throughout the colon. U/S interpreted by me (1pt. min.)? @ -Not obtained What testing was considered but not performed? (CT, X-rays, U/S, labs)? Why? @ -None What meds were considered but not given? Why? @ -Enema, however patient refused. Did you discuss the management of the patient with other professionals? @ -No Did you reconcile home meds? @ -No Was smoking cessation discussed for >3mins.? @ -I discussed smoking cessation for greater than 3 minutes. The risk of smoking were discussed with the patient including but not limited to risks of cancer, stroke, coronary artery disease and COPD. Also discussed with patient were multiple methods of quitting smoking. Lastly we discussed the financial cost of smoking. Was critical care preformed (if so, how long)? @ -No Were there social determinants of health that impacted care today? How? (Homelessness, low income, unemployed, alcoholism, drug addiction, transportation, low edu. Level, literacy, decrease access to med. care, skilled nursing, rehab)? @ -No Was there de-escalation of care discussed even if they declined? (Discuss DNR or withdrawal of care, Hospice)? @ -No What co-morbidities impacted this encounter? (DM, HTN, Smoking, COPD, CAD, Cancer, CVA, Hep., AIDS, mental health diagnosis, sleep apnea, morbid obesity)? @ -Smoking, lung cancer, COPD Was patient admitted / discharged? @ -Discharged. Lab work demonstrates leukocytosis. Pancreatic enzymes elevated, which is a relatively chronic finding for the patient. They are improved from prior. Urinalysis negative for signs of infection. CT scan of the abdomen and pelvis demonstrates marked dense stool throughout the colon and rectum without other acute intra-abdominal process. Advised that given the amount of stool she has either manual disimpaction or an enema would be advised. Patient however refused and states that she only wants to take oral medication. She was sent home with lactulose and a prescription was provided to see if this helps with the constipation. However, she was given very strict return parameters and advised to have close follow-up with her PCP in the next couple of days. Patient discharged home in stable condition. Case discussed with ED attending Dr. Islas. Return precautions reviewed in depth, the patient is instructed to return to the emergency department with any new, worsening, or concerning symptoms. Patient verbalized understanding. Undiagnosed new problem with uncertain prognosis? @ -None Drug Therapy requiring intensive monitoring for toxicity (Heparin, Nitro, Insulin, Cardizem)? @ -None Were any procedures done? @ -None Diagnosis/symptom? @ -Abdominal pain, constipation Acute, or Chronic, or Acute on Chronic? @ -Acute Uncomplicated (without systemic symptoms) or Complicated (systemic symptoms)? @ -Uncomplicated Side effects of treatment? @ -None Exacerbation, Progression, or Severe Exacerbation] @ -Not applicable Poses a threat to life or bodily function? @ -Unlikely - Lab Data Result diagrams: 06/12/24 13:00 06/12/24 13:00 Lab Results 06/12/24 06/12/24 06/12/24 Range/Units 12:45 13:00 13:00 WBC 16.9 H (3.8-10.6) k/uL RBC 3.57 L (3.80-5.40) m/uL Hgb 11.9 (11.4-16.0) gm/dL Hct 37.3 (34.0-46.0) % MCV 104.4 H (80.0-100.0) fL MCH 33.4 (25.0-35.0) pg MCHC 32.0 (31.0-37.0) g/dL RDW 14.0 (11.5-15.5) % Plt Count 352 (150-450) k/uL MPV 7.6 Neutrophils % 95 % Lymphocytes % 2 % Monocytes % 2 % Eosinophils % 1 % Basophils % 0 % Neutrophils # 16.1 H (1.3-7.7) k/uL Lymphocytes # 0.3 L (1.0-4.8) k/uL Monocytes # 0.3 (0-1.0) k/uL Eosinophils # 0.2 (0-0.7) k/uL Basophils # 0.0 (0-0.2) k/uL Macrocytosis Slight Sodium 135 L (137-145) mmol/L Potassium 4.6 (3.5-5.1) mmol/L Chloride 105 (98-107) mmol/L Carbon Dioxide 24 (22-30) mmol/L Anion Gap 6 mmol/L BUN 28 H (7-17) mg/dL Creatinine 0.49 L (0.52-1.04) mg/dL Est GFR (CKD-EPI)AfAm >90 (>60 ml/min/1.73 sqM) Est GFR (CKD-EPI)NonAf >90 (>60 ml/min/1.73 sqM) Glucose 123 H (74-99) mg/dL Plasma Lactic Acid [place]tera (0.7-2.0) mmol/L Calcium 8.3 L (8.4-10.2) mg/dL Magnesium 2.1 (1.6-2.3) mg/dL Total Bilirubin 0.6 (0.2-1.3) mg/dL AST 18 (14-36) U/L ALT 10 (4-34) U/L Alkaline Phosphatase 75 (38-126) U/L Troponin I (0.000-0.034) ng/mL Total Protein 5.9 L (6.3-8.2) g/dL Albumin 3.1 L (3.5-5.0) g/dL Amylase 286 H (30-110) U/L Lipase 547 H (23-300) U/L Urine Color Urine Appearance (Clear) Urine pH (5.0-8.0) Ur Specific [place] (1.001-1.035) Urine Protein (Negative) Urine Glucose (UA) (Negative) Urine Ketones (Negative) Urine Blood (Negative) Urine Nitrite (Negative) Urine Bilirubin (Negative) Urine Urobilinogen (<2.0) mg/dL Ur Leukocyte Esterase (Negative) Urine RBC (0-5) /hpf Urine WBC (0-5) /hpf Ur Squamous Epith Cells (0-4) /hpf Urine Bacteria (None) /hpf Urine Mucus (None) /hpf Influenza Type A (PCR) Not Detected (Not Detectd) Influenza Type B (PCR) Not Detected (Not Detectd) RSV (PCR) Not Detected (Not Detectd) SARS-CoV-2 (PCR) Not Detected (Not Detectd) 06/12/24 06/12/24 06/12/24 Range/Units 13:00 13:00 14:00 WBC (3.8-10.6) k/uL RBC (3.80-5.40) m/uL Hgb (11.4-16.0) gm/dL Hct (34.0-46.0) % MCV (80.0-100.0) fL MCH (25.0-35.0) pg MCHC (31.0-37.0) g/dL RDW (11.5-15.5) % Plt Count (150-450) k/uL MPV Neutrophils % % Lymphocytes % % Monocytes % % Eosinophils % % Basophils % % Neutrophils # (1.3-7.7) k/uL Lymphocytes # (1.0-4.8) k/uL Monocytes # (0-1.0) k/uL Eosinophils # (0-0.7) k/uL Basophils # (0-0.2) k/uL Macrocytosis Sodium (137-145) mmol/L Potassium (3.5-5.1) mmol/L Chloride (98-107) mmol/L Carbon Dioxide (22-30) mmol/L Anion Gap mmol/L BUN (7-17) mg/dL Creatinine (0.52-1.04) mg/dL Est GFR (CKD-EPI)AfAm (>60 ml/min/1.73 sqM) Est GFR (CKD-EPI)NonAf (>60 ml/min/1.73 sqM) Glucose (74-99) mg/dL Plasma Lactic Acid [place] 1.7 (0.7-2.0) mmol/L Calcium (8.4-10.2) mg/dL Magnesium (1.6-2.3) mg/dL Total Bilirubin (0.2-1.3) mg/dL AST (14-36) U/L ALT (4-34) U/L Alkaline Phosphatase (38-126) U/L Troponin I <0.012 (0.000-0.034) ng/mL Total Protein (6.3-8.2) g/dL Albumin (3.5-5.0) g/dL Amylase (30-110) U/L Lipase (23-300) U/L Urine Color Yellow Urine Appearance Clear (Clear) Urine pH 6.0 (5.0-8.0) Ur Specific [place] >1.050 H (1.001-1.035) Urine Protein 1+ H (Negative) Urine Glucose (UA) Negative (Negative) Urine Ketones Negative (Negative) Urine Blood Trace H (Negative) Urine Nitrite Negative (Negative) Urine Bilirubin Negative (Negative) Urine Urobilinogen <2.0 (<2.0) mg/dL Ur Leukocyte Esterase Trace H (Negative) Urine RBC 3 (0-5) /hpf Urine WBC 1 (0-5) /hpf Ur Squamous Epith Cells 6 H (0-4) /hpf Urine Bacteria Rare H (None) /hpf Urine Mucus Occasional H (None) /hpf Influenza Type A (PCR) (Not Detectd) Influenza Type B (PCR) (Not Detectd) RSV (PCR) (Not Detectd) SARS-CoV-2 (PCR) (Not Detectd) - Radiology Data Radiology results: report reviewed, image reviewed Disposition Clinical Impression: Constipation, Abdominal pain, Nicotine dependence Disposition: HOME SELF-CARE Instructions (If sedation given, give patient instructions): Constipation (ED), Abdominal Pain (ED) Additional Instructions: Return to the emergency department with any new, worsening, or concerning symptoms. Begin taking the lactulose daily. You can also try prune juice. Make sure you remain well-hydrated. Follow up with your primary care provider in 1-2 days. Prescriptions: Lactulose [Cephulac] 20 gm PO DAILY PRN #473 ml PRN Reason: Constipation Is patient prescribed a controlled substance at d/c from ED?: No Referrals: Brandon Briseno DO [Primary Care Provider] - 1-2 days Time of Disposition: 15:54
[2024-06-12] MEDS: HYDROmorphone 1 MG/ML 1 ML SYRINGE IVP STA ×2 (14:51→16:05)
[2024-06-12 14:59] LABS: Appearance,Urine Clear (Clear); Bacteria,Urine Rare /hpf; Bilirubin,Urine Negative (Negative); Blood,Urine Trace (Negative); Color,Urine Yellow; Glucose,Urine (UA) Negative (Negative); Ketones,Urine Negative (Negative); Leukocyte Esterase,Urine Trace (Negative); Mucus,Urine Occasional /hpf; Nitrite,Urine Negative (Negative); Protein,Urine 1+ (Negative); RBC,Urine 3 /hpf (0-5); Squamous Epithelial Cell,Urine 6 /hpf (0-4); Urobilinogen,Urine <2.0 mg/dL (<2.0); WBC,Urine 1 /hpf (0-5)
[2024-06-12 15:36] LABS: Specific Gravity,Urine >1.050 (1.001-1.035)
[2024-06-12] MEDS: ONDANSETRON 4 MG ODT STARTER PACK 2 TAB BTL PO STA (16:04)
[2024-06-12] MEDS: LACTULOSE 20 GM/30 ML CUP PO ONE (16:04)
[2024-06-12 16:21] VITALS: BP 115/76; PULSE 73; RESP 19
== END 2024-06-12 16:21 | disposition home or self-care (01) ==
LOC: EC 12:25
DX: K59.00 Constipation, unspecified (principal); F17.200 Nicotine dependence, unspecified, uncomplicated; J44.9 Chronic obstructive pulmonary disease, unspecified; Z88.2 Allergy status to sulfonamides; Z88.5 Allergy status to narcotic agent; Z88.1 Allergy status to other antibiotic agents; Z88.8 Allergy status to other drugs, medicaments and biological substances; Z88.0 Allergy status to penicillin; Z85.118 Personal history of other malignant neoplasm of bronchus and lung
CPT/HCPCS: 99285; 99406; 96374; 96375; 96376; 36415; 93005; 80053; 82150; 83605; 83690; 83735; 84484; 85025; 81001; 87636; 71046; 74177; 96361; J2270; J2405; J1171; J1885; S0119; Q9967

== ENCOUNTER 2024-06-30 16:01 | Inpatient (IN) | payer MEDICAID, OTHER ==
--- NOTE | 2024-06-30 16:57 | ED ---
General Adult HPI - General Chief complaint: Back Pain/Injury Stated complaint: uncontrolled pain Time Seen by Provider: 06/30/24 16:05 Source: patient, family Mode of arrival: EMS - History of Present Illness Initial comments: 64-year-old female with past medical history of lung cancer who presents emergency department with uncontrolled pain. Patient is currently on hospice. She has been getting 20 mg of morphine every 2 hours without improvement in her pain. Reports that most of it is in her coccyx right now. They contacted the hospice nurse who told the patient she could come to the hospital for further pain control. Patient has not ate or drank anything in several days due to aspiration. - Related Data Home Medications Medication Instructions Recorded Confirmed Hyoscyamine Sulfate [Levsin] 0.125 mg PO Q4H 06/30/24 06/30/24 LORazepam [Ativan] 0.5 mg PO Q4H 06/30/24 06/30/24 MORPHINE ORAL ESTEVAN CONC 20mg/mL 20 mg PO Q2H 06/30/24 06/30/24 [Roxanol Oral Soln Conc 20MG/ML] Allergies Allergy/AdvReac Type Severity Reaction Status Date / Time amoxicillin trihydrate Allergy Nausea & Verified 06/30/24 16:50 [From Augmentin] Vomiting hydromorphone HCl Allergy Nausea & Verified 06/30/24 16:50 [From Dilaudid] Vomiting meperidine HCl [From Demerol] Allergy Nausea & Verified 06/30/24 16:50 Vomiting potassium clavulanate Allergy Nausea & Verified 06/30/24 16:50 [From Augmentin] Vomiting sulfamethoxazole Allergy Nausea & Verified 06/30/24 16:50 [From Bactrim] Vomiting trimethoprim [From Bactrim] Allergy Nausea & Verified 06/30/24 16:50 Vomiting Review of Systems ROS Statement: Those systems with pertinent positive or pertinent negative responses have been documented in the HPI. ROS Other: All systems not noted in ROS Statement are negative. Past Medical History Past Medical History: COPD, Pneumonia Additional Past Medical History / Comment(s): lung cancer now pancreatitis November 2013, History of Any Multi-Drug Resistant Organisms: None Reported Past Surgical History: Cholecystectomy, Hysterectomy Additional Past Surgical History / Comment(s): splenectomy Mar 1983. Reconstruction face, mouth, teeth Mar 1983. Knee Past Anesthesia/Blood Transfusion Reactions: Postoperative Nausea & Vomiting (PONV) Additional Past Anesthesia/Blood Transfusion Reaction / Comment(s): Pt states it depends on what medications were used, varied reactions. Past Psychological History: Anxiety Smoking Status: Current every day smoker Past Alcohol Use History: None Reported Past Drug Use History: None Reported - Past Family History Mother Family Medical History: AFIB, Cancer Additional Family Medical History / Comment(s): spondylo General Exam General appearance: cachectic Head exam: Present: atraumatic Eye exam: Present: PERRL, EOMI ENT exam: Present: mucous membranes dry Respiratory exam: Present: decreased breath sounds Cardiovascular Exam: Present: normal rhythm, tachycardia Neurological exam: Present: alert Psychiatric exam: Present: flat affect Course Vital Signs 06/30/24 06/30/24 16:04 18:56 Pulse Rate 107 H 100 Respiratory 18 14 Rate Blood Pressure 117/64 100/60 O2 Sat by Pulse 93 L 92 L Oximetry Medical Decision Making - Medical Decision Making Was pt. sent in by a medical professional or institution (, PA, EARLY CHILDHOOD ASSISTANT, urgent care, hospital, or long-term...) When possible be specific @ -Patient was sent in from home hospice Did you speak to anyone other than the patient for history (EMS, parent, family, police, friend...)? What history was obtained from this source @ -Spoke with the ex- for history Did you review nursing and triage notes (agree or disagree)? Why? @ -I reviewed and agree with nursing and triage notes Were old charts reviewed (outside hosp., previous admission, EMS record, old EKG, old radiological studies, urgent care reports/EKG's, long-term records)? Report findings @ -No old charts were reviewed Differential Diagnosis (chest pain, altered mental status, abdominal pain women, abdominal pain men, vaginal bleeding, weakness, fever, dyspnea, syncope, headache, dizziness, GI bleed, back pain, seizure, CVA, palpatations, mental health, musculoskeletal)? @ -Differential Weakness: Hypoglycemia, shock, sepsis, hyponatremia, anemia, infection, MA, ETOH, adverse medicine reaction, overdose, stroke, this is not meant to be an all-inclusive list. EKG interpreted by me (3pts min.). @ -Not done X-rays interpreted by me (1pt min.). @ -None done CT interpreted by me (1pt min.). @ -None done U/S interpreted by me (1pt. min.). @ -None done What testing was considered but not performed or refused? (CT, X-rays, U/S, labs)? Why? @ -None What meds were considered but not given or refused? Why? @ -None Did you discuss the management of the patient with other professionals (professionals i.e. , PA, EARLY CHILDHOOD ASSISTANT, lab, RT, psych nurse, social work msw, poultry farm supervisor, teacher, tactical intelligence officer, insurance case manager)? Give summary @ -Spoke with sound physicians who will admit the patient. Spoke with the hospice nurses who do present to the emergency department and place comfort care orders Was smoking cessation discussed for >3mins.? @ -No Was critical care preformed (if so, how long)? @ -No Were there social determinants of health that impacted care today? How? (Homelessness, low income, unemployed, alcoholism, drug addiction, transportation, low edu. Level, literacy, decrease access to med. care, fpc, rehab)? @ -No Was there de-escalation of care discussed even if they declined (Discuss DNR or withdrawal of care, Hospice)? DNR status @ -No What co-morbidities impacted this encounter? (DM, HTN, Smoking, COPD, CAD, Cancer, CVA, ARF, Chemo, Hep., AIDS, mental health diagnosis, sleep apnea, morbid obesity)? @ -Lung cancer Was patient admitted / discharged? Hospital course, mention meds given and route, prescriptions, significant lab abnormalities, going to OR and other pertinent info. @ -Upon arrival patient seen and evaluated in room 2. Thorough history and physical exam was performed. Patient sent into the hospital for uncontrolled pain. I did call hospice. They are requesting sound physicians to admit the patient. The patient will be admitted to inpatient hospice. The hospice nurses do place comfort care orders for the patient Undiagnosed new problem with uncertain prognosis? @ -No Drug Therapy requiring intensive monitoring for toxicity (Heparin, Nitro, Insulin, Cardizem)? @ -No Were any procedures done? @ -No Diagnosis/symptom? @ -Generalized pain, advanced lung cancer Acute, or Chronic, or Acute on Chronic? @ -Chronic Uncomplicated (without systemic symptoms) or Complicated (systemic symptoms)? @ -Complicated Side effects of treatment? @ -No Exacerbation, Progression, or Severe Exacerbation? @ -No Poses a threat to life or bodily function? How? (Chest pain, [place], MA, pneumonia, PE, COPD, DKA, ARF, appy, cholecystitis, CVA, Diverticulitis, Homicidal, Suicidal, threat to staff... and all critical care pts) @ -Yes patient is expected to pass from her diagnosis Disposition Clinical Impression: Lung cancer, Uncontrolled pain Disposition: ADMITTED IP TO THIS HOSP Is patient prescribed a controlled substance at d/c from ED?: No Time of Disposition: 16:58 Decision to Admit Reason: Admit from EC Decision Date: 06/30/24 Decision Time: 16:58
[2024-06-30] MEDS ORDERED: NALOXONE 0.4 MG/ML 1 ML VIAL IV PRN (16:58)
[2024-06-30] MEDS ORDERED: ONDANSETRON 4 MG/2 ML VIAL IVP PRN (17:06)
[2024-06-30] MEDS ORDERED: GLYCOPYRROLATE 0.2 MG/ML 2 ML VIAL IVP PRN (17:06)
[2024-06-30] MEDS ORDERED: ACETAMINOPHEN SUPPOSITORY 650 MG SUPP RECTAL PRN (17:06)
[2024-06-30] MEDS ORDERED: HALOPERIDOL LACTATE 5 MG/ML 1 ML VIAL IM PRN (17:06)
[2024-06-30] MEDS: MORPHINE SULFATE 4 MG/ML SYRINGE IV PRN (17:48)
--- NOTE | 2024-06-30 18:25 | P.HPIM ---
History of Present Illness H&P Date: 06/30/24 Patient is a 64-year-old female with a medical history significant for metastatic lung cancer presents today from outpatient hospice. Family, who is present at bedside, states that she was readmitted to hospice on Thursday and on Thursday she began declining. They report aspiration with even small sips of water so she has not had any food or drink for a few days. She is currently on morphine 20 mg PO every 2 hours and recently began Ativan 0.5 mg PO every 4 hours. Family states that morphine 20 mg has not been enough to control her pain and were advised by hospice to come here for better pain control. Patient reports severe abdominal pain mostly but also pain throughout her body. Initial vitals: BP 117/64, [place] 107, RR 18, O2 93% on 4 L nasal cannula. No labs or imaging to review. ED documentation reviewed. Review of systems: Pertinent positives and negatives as discussed in HPI, a complete review of systems was performed and all other systems are negative. Social history: Tobacco: Current smoker Alcohol: None Physical examination: Vital signs reviewed General: No mild to moderate distress from pain, severe cachexia Head: Atraumatic, normocephalic, symmetric Cardiovascular: S1-S2 regular, no murmur Lungs: Bilateral expiratory rhonchi diffusely Abdominal: Soft, tender to palpation, nondistended Extremities: No cyanosis, clubbing, or pedal edema Neuro: Alert, oriented x 3, gross neurological examination did not reveal any focal deficits. Cranial nerves II to XII grossly intact. Assessment and Plan: Patient is a 64-year-old female with a medical history significant for metastatic lung cancer admitted for inpatient hospice and comfort care. Active #. Severe cachexia #. Severe COPD #. Proteincalorie malnutrition, severe #. Metastatic lung cancer #. Active Nicotine Abuse Comfort care initiated: morphine gtt, morphine PRN for breakthrough, ativan PRN, glycopyrolate PRN, tylenol PRN Pt declined nicotine patch/lozenges CODE STATUS: No code Discussed with: Patient, family, Dr. Pantoja I saw and evaluated the patient during the cunningham and critical portions of this encounter, and discussed the case in detail with the resident author of this note, I agree with the Assessment and Plan, and my changes, if any, are highlighted in blue. Past Medical History Past Medical History: COPD, Pneumonia Additional Past Medical History / Comment(s): lung cancer now pancreatitis November 2013, History of Any Multi-Drug Resistant Organisms: None Reported Past Surgical History: Cholecystectomy, Hysterectomy Additional Past Surgical History / Comment(s): splenectomy Mar 1983. Reconstruction face, mouth, teeth Mar 1983. Knee Past Anesthesia/Blood Transfusion Reactions: Postoperative Nausea & Vomiting (PONV) Additional Past Anesthesia/Blood Transfusion Reaction / Comment(s): Pt states it depends on what medications were used, varied reactions. Past Psychological History: Anxiety Smoking Status: Current every day smoker Past Alcohol Use History: None Reported Past Drug Use History: None Reported - Past Family History Mother Family Medical History: AFIB, Cancer Additional Family Medical History / Comment(s): spondylo Medications and Allergies Home Medications Medication Instructions Recorded Confirmed Type Hyoscyamine Sulfate [Levsin] 0.125 mg PO Q4H 06/30/24 06/30/24 History LORazepam [Ativan] 0.5 mg PO Q4H 06/30/24 06/30/24 History MORPHINE ORAL ESTEVAN CONC 20mg/mL 20 mg PO Q2H 06/30/24 06/30/24 History [Roxanol Oral Soln Conc 20MG/ML] Allergies Allergy/AdvReac Type Severity Reaction Status Date / Time amoxicillin trihydrate Allergy Nausea & Verified 06/30/24 16:50 [From Augmentin] Vomiting hydromorphone HCl Allergy Nausea & Verified 06/30/24 16:50 [From Dilaudid] Vomiting meperidine HCl [From Demerol] Allergy Nausea & Verified 06/30/24 16:50 Vomiting potassium clavulanate Allergy Nausea & Verified 06/30/24 16:50 [From Augmentin] Vomiting sulfamethoxazole Allergy Nausea & Verified 06/30/24 16:50 [From Bactrim] Vomiting trimethoprim [From Bactrim] Allergy Nausea & Verified 06/30/24 16:50 Vomiting Physical Exam Osteopathic Statement: *. No significant issues noted on an osteopathic structural exam other than those noted in the History and Physical/Consult. Vitals: Vital Signs Pulse Resp BP Pulse Ox 06/30/24 16:04 107 H 18 117/64 93 L Intake and Output 06/30/24 06/30/24 06/30/24 06:59 14:59 22:59 Other: Weight 22.68 kg
[2024-06-30] MEDS: MORPHINE SULFATE (100 MG/2 ML) 100 MG in SODIUM CHLORIDE 0.9% 100 ML IV SCH (18:33)
[2024-06-30] MEDS: SCOPOLAMINE 1 MG/72 HR PATCH TRANSDERM SCH (18:35)
[2024-06-30 18:57] VITALS: BP 100/60
[2024-06-30] MEDS: ATROPINE OPHTH SOLN 1% 5ML BTL SUBLINGUAL PRN (22:47)
[2024-06-30 23:27] VITALS: PULSE 111
[2024-07-01] MEDS: LORazepam 2 MG/ML INJ IV PRN (00:31)
[2024-07-01 09:38] VITALS: RESP 15
--- NOTE | 2024-07-01 12:55 | P.PN ---
Subjective Progress Note Date: 07/01/24 Patient is a 64-year-old female with a medical history significant for metastatic lung cancer presents today from outpatient hospice. Family, who is present at bedside, states that she was readmitted to hospice on Thursday and on Thursday she began declining. They report aspiration with even small sips of w ater so she has not had any food or drink for a few days. She is currently on morphine 20 mg PO every 2 hours and recently began Ativan 0.5 mg PO every 4 hours. Family states that morphine 20 mg has not been enough to control her pain and were advised by hospice to come here for better pain control. Patient reports severe abdominal pain mostly but also pain throughout her body. 07/01. Patient seen at bedside. No acute events overnight. Patient continues on morphine drip, morphine as needed for breakthrough, Ativan as needed, glycopyrrolate as needed, Tylenol as needed. Patient continued on comfort care. Pertinent positives and negatives discussed above, a complete review of systems was performed and all the other systems were negative. Physical examination: Vital signs reviewed General: No distress from pain, severe cachexia, agonal breathing Head: Atraumatic, normocephalic, symmetric Cardiovascular: S1-S2 regular, no murmur Lungs: Bilateral expiratory rhonchi diffusely Abdominal: Soft, tender to palpation, nondistended Extremities: No cyanosis, clubbing, or pedal edema Neuro: Unresponsive to verbal stimuli Assessment and Plan: Patient is a 64-year-old female with a medical history significant for metastatic lung cancer admitted for inpatient hospice and comfort care. Active #. Severe cachexia #. Severe COPD #. Proteincalorie malnutrition, severe #. Metastatic lung cancer #. Active nicotine dependence Comfort care initiated: morphine gtt, morphine PRN for breakthrough pain, ativan PRN, glycopyrolate PRN, tylenol PRN Patient declined nicotine patch/lozenges Code status: No code I saw and evaluated the patient during the cunningham and critical portions of this encounter, and discussed the case in detail with the resident author of this note, I agree with the Assessment and Plan, and my changes, if any, are highlighted in blue. Objective - Vital Signs Vital signs: Vital Signs Temp Pulse 111 H 06/30/24 23:27 Resp 13 07/01/24 06:36 BP 100/60 06/30/24 18:56 Pulse Ox 92 L 06/30/24 18:56 FiO2 Intake & Output 06/30/24 06/30/24 07/01/24 06:59 18:59 06:59 Intake Total 13.940 Balance 13.940 Weight 22.68 kg 22.68 kg Intake: Intake, IV Titration 13.940 Amount Morphine Sulfate (100 mg/ 13.940 2 ml) 100 mg In Sodium Chloride 0.9% 100 ml @ 2 MG/HR 2.04 mls/hr IV . Q24H [facility] Rx#:[id number] Other: Voiding Method Diaper # Voids 0
--- NOTE | 2024-07-01 15:06 | P.DS ---
Providers Date of admission: 06/30/24 16:59 Attending physician: Giorgio Hernandez Primary care physician: Didier Stroud [facility] Course: Hospital Course: Patient is a 64-year-old female with a medical history significant for metastatic lung cancer presents today from outpatient hospice. Family, who is present at bedside, states that she was readmitted to hospice on Thursday and on Thursday she began declining. They report aspiration with even small sips of water so she has not had any food or drink for a few days. She is currently on morphine 20 mg PO every 2 hours and recently began Ativan 0.5 mg PO every 4 hours. Family states that morphine 20 mg has not been enough to control her pain and were advised by hospice to come here for better pain control. Patient reports severe abdominal pain mostly but also pain throughout her body. She was maintained on comfort care with morphine gtt, morphine as needed for breakthrough pain, Ativan as needed, glycopyrrolate as needed, Tylenol as needed. Patient at 1456. Final Diagnosis: #. Metastatic lung cancer #. Severe cachexia #. Severe COPD #. Proteincalorie malnutrition, severe Plan - Discharge Summary New Discharge Prescriptions: No Action MORPHINE ORAL ESTEVAN CONC 20mg/mL [Roxanol Oral Soln Conc 20MG/ML] 20 mg PO Q2H LORazepam [Ativan] 0.5 mg PO Q4H Hyoscyamine Sulfate [Levsin] 0.125 mg PO Q4H Discharge Medication List Hyoscyamine Sulfate [Levsin] 0.125 mg PO Q4H 06/30/24 [History] LORazepam [Ativan] 0.5 mg PO Q4H 06/30/24 [History] MORPHINE ORAL ESTEVAN CONC 20mg/mL [Roxanol Oral Soln Conc 20MG/ML] 20 mg PO Q2H 06/30/24 [History] Follow up Appointment(s)/Referral(s): Didier Stroud DO [Primary Care Provider] - 1-2 days
== END 2024-07-01 16:48 | disposition expired | DRG 951 ==
LOC: EC 16:01 → 5NMEDONC 16:59
PROVIDERS: ADMIT Student in an Organized Health Care Education/Training Program; ATTEND Student in an Organized Health Care Education/Training Program
DX: Z51.5 Encounter for palliative care (principal); E43 Unspecified severe protein-calorie malnutrition; Z68.1 Body mass index [BMI] 19.9 or less, adult; R64 Cachexia; C34.90 Malignant neoplasm of unspecified part of unspecified bronchus or lung; C79.9 Secondary malignant neoplasm of unspecified site; Z66 Do not resuscitate; F17.200 Nicotine dependence, unspecified, uncomplicated; F41.9 Anxiety disorder, unspecified; J44.9 Chronic obstructive pulmonary disease, unspecified; Z90.81 Acquired absence of spleen
CPT/HCPCS: 96365; 99284